=== PATIENT | male | born 1945 | race Caucasian/White ===

== ENCOUNTER 2025-04-26 09:54 | Inpatient (IN) ==
[2025-04-26 10:30] LABS: Hematocrit (blood only) 37.7 % (42.0-52.0); Hemoglobin 13.1 g/dl (14.0-18.0); Mean Corpuscular Hemoglobin 37.3 pg (25.0-34.0); Mean Corpuscular Volume 107.4 fL (80.0-100.0); Platelet Count 314 K/uL (130-400); RDW Standard Deviation 62.4 fL (36.4-46.3); Red Blood Count 3.51 M/uL (4.70-6.10); White Blood Count 26.92 K/ul (4.8-10.8)
[2025-04-26] MEDS: PROCHLORPERAZINE 2 ML IV ONE (10:42)
[2025-04-26] MEDS: PLASMA-LYTE A 1,000 ML IV ONE ×2 (10:43→12:04)
--- NOTE | 2025-04-26 10:52 | CT Scan Report ---
CT SCAN OF THE BRAIN WITHOUT IV CONTRAST CLINICAL HISTORY: Severe nausea vomiting. History of brain metastasis. COMPARISON STUDY: MRI the brain dated 04/02/2025 TECHNIQUE: Unenhanced axial CT scan of the brain was performed from the vertex to the skull base. A dose lowering technique was utilized adhering to the principles of ALARA. CT DOSE: 781.9 mGy.cm FINDINGS: There is right cerebellar edema. There is underlying 2 cm mass. There is persistent mild mass effect on the fourth ventricle. There is minimal left cerebellar hemispheric edema consistent with the patie nt's known prior left cerebellar metastatic deposit. 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 The ventricular system however remains unchanged in size. There are no areas of acute hemorrhage. There is no midline shift. There is scattered additiona l white matter hypodensities likely on a small vessel basis. Calvarium: Unremarkable. Sinuses and mastoids: The visualized paranasal sinuses are clear. The mastoid air cells are well pneu matized. Orbits: The bony orbits are grossly intact. IMPRESSION: 1. Persistent cerebellar masses with associated edema consistent with the patient's known metastasis. 2. Persistent 1 cm right parafalcine nodule likely representing an incidental meningioma 3. Minimal mass effect on the fourth ventricle, but no current evidence of significant hydrocephalus. 4. No evidence of acute hemorrhage ACT 112: Negative or not required by law. Electronically signed by: Antonio Lyons M.D. 04/26/2025 10:50 AM
[2025-04-26 10:57] LABS: Alanine Aminotransferase 68 U/L (7-52); Albumin Globulin Ratio 1.8 (0.9-2); Alkaline Phosphatase 72 U/L (34-104); Anion Gap 8 (3-11); Bilirubin,Total 0.9 mg/dl (0.2-1.0); Blood Urea Nitrogen 27 mg/dl (6-23); Calcium 9.9 mg/dl (8.6-10.3); Carbon Dioxide 25 mmol/L (21-32); Chloride 102 mmol/L (98-107); Creatinine Clr Calc Pharmacy 58.8 ml/min; Globulin 2.2 gm/dl (2.5-4.0); Glucose 115 mg/dl (70-99(Fasting)); Lipase 18 U/L (11-82); Magnesium 2.0 mg/dl (1.7-2.4); Potassium 4.0 mmol/L (3.5-5.1); Sodium 135 mmol/L (136-145); Total Protein 6.1 gm/dl (6.0-8.3)
[2025-04-26 11:00] LABS: Hypersegmented Neutrophils 1+; Immature Granulocytes # (auto) 1.44 K/uL (0.01-0.20); Immature Granulocytes % (auto) 5.3 %; Macrocytosis Present; Poikilocytosis Present
--- NOTE | 2025-04-26 11:25 | Emergency Department Note ---
Impression & Plan Cerebellar metastasis, Worsening headaches, Vertigo, Acute hyponatremia, Acidosis, lactic ED Provider Note NAME: JUAN SAWYER AGE: 79 SEX: M : 1945 ARRIVES VIA: Ambulance INFORMANT: Patient, EMS, family ED PROVIDER(S): Simon Salmeron DO CHIEF COMPLAINT: HPI: This is a 79-year-old male with the PMHx of recently diagnosed metastatic lung cancer, colorectal cancer, COPD, and BPH presenting to [facility] for further evaluation of severe nausea and vomiting. Patient is accompanied by EMS who provide additional history. EMS reported patient was lightheaded with a severe headache as well as nausea and vomiting. Was given droperidol en route with some improvement. Patient reports that this occurred suddenly this morning. States when he woke up he had feelings of lightheadedness and the room spinning. He also reports of severe headache. Patient reports he had severe nausea and vomiting. He has minimal abdominal tenderness. Patient states that he did not feel this way earlier in the week. He has significant weakness and malaise. he has had chills but no documented fevers. No cough or congestion. Denies chest pain or palpitations. No shortness of breath. No urinary complaints. No recent changes in bowel movements. Patient denies recent changes in medications or OTC supplements. Patient offers no other complaints, today. ADDITIONAL HISTORY OBTAINED: Per HPI Chronic Medical/Social Conditions Affecting Care: Per HPI PAST MEDICAL HISTORY: See Below PAST SURGICAL HISTORY: See Below FAMILY HISTORY: See Below SOCIAL HISTORY: See Below HOME MEDICATIONS: See Below ALLERGIES: See Below VITALS: See Below PHYSICAL EXAMINATION: GENERAL: Sitting up in bed, alert, well appearing, well nourished, no distress, non-toxic EYE EXAM: normal conjunctiva. PERRL and EOM's grossly intact. No nystagmus OROPHARYNX: no exudate, no erythema, lips, buccal mucosa, and tongue normal and mucous membranes are moist NECK: supple, no nuchal rigidity, no adenopathy, non-tender LUNGS: Clear to auscultation. Normal chest wall mechanics HEART: no murmurs, tachycardic rate, regular rhythm ABDOMEN: abdomen soft, minimal generalized TTP, no masses, no rebound or guarding. BACK: Back is symmetrical on inspection and there is no deformity, no midline tenderness, no CVA tenderness. SKIN: no rashes and no bruising UPPER EXTREMITIES: upper extremities are grossly normal. LOWER EXTREMITIES: No pitting edema. NEURO EXAM: Normal sensorium, GCS 15, normal speech, no gross weakness of arms, no gross weakness of legs. Sensation intact. MEDICAL DECISION MAKING: Differential diagnoses includes but not limited to metastatic cancer with brain metastases, cerebral edema, complex migraine, tension type headache, peripheral vertigo's, central vertigo, electrolyte derangements, dehydration, viral URI, pneumonia, bacteremia, complicated UTI In summary, this is a 79 year old male who presented with nausea and vomiting. Differential as above. Nursing notes and pertinent past medical records reviewed. Vital signs reviewed and the patient is . Tachycardic but otherwise afebrile and hemodynamically stable. Patient's blood pressure is on the lower end of normal. Given the patient's complex history and metastatic cancer, I do believe he is at risk for infectious illnesses. Would consider sepsis at this point based on vital signs. He is both tachycardic and tachypneic. Will initiate a septic workup. His nausea and vomiting is in the setting of a headache and vertiginous symptoms. He does have known brain metastases to the cerebellum which could likely explain his presentation. Cerebral edema would be a consideration as well. Will repeat the patient's CT head based on this. Patient may need an MRI as an inpatient. He is currently neurovascularly intact. I do not have concerns for large vessel occlusion. While he could have a posterior circulation stroke, I do believe it is more likely explained by his metastatic cancer and he would not be a candidate for therapies at this time including thrombectomy or TNK. Do not feel that further stroke workup is necessary. Will provide antiemetics as well as IV fluid resuscitation. Diagnostics interpreted by me include EKG and cardiac monitoring as listed below: -Cardiac Monitoring: An order was placed for continuous cardiac monitoring. The monitor shows a rate of 100-130s with regular rhythm. -ECG: EKG independently terming December tachycardia rate of 135 beats were not present. No significant ST segment changes to suggest STEMI. QTc is 450ms. Patient completed laboratory studies and imaging. Labs independently interpreted by me reveal a leukocytosis. Lactic acidosis. Mild elevation of ALT. Patient does have mild anemia that is stable. Given leukocytosis as well as lactic acidosis and tachycardia, patient meets SIRS criteria. Will collect further imaging with CT abdomen/pelvis. Will place the patient on broad- spectrum antibiotics. Plan for sepsis evaluation. Will give an additional liter of Plasma-Lyte. Urinalysis independently interpreted by me shows leukocyte esterase and pyuria but no significant bacteria. Do not think this is an source but abnormal for male patient. Would consider prostatitis if no other source identified. Viral swab added. Plan for CT abdomen/pelvis for further evaluation. I updated the family at 1140. 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 Did discuss with them that the patient will need to stay in the hospital secondary to sepsis and severe symptoms. CT head was independently reviewed by me and revealed no changes from prior. Do not feel that there has been an acute change causing his nausea and vomiting but very well could be related to his metastatic disease in the cerebellum and cerebral edema. Leukocytosis could be related to recent steroid use. CT abdomen/pelvis did not reveal source of sepsis as independently interpreted by me. I see no free air. There is no significant evidence of cholecystitis or bowel obstruction. Ultimately, the decision was made to admit the patient for SIRS response with concerns for vertiginous symptoms and atypical headaches in the setting of metastatic cancer and cerebellar metastases. I discussed the case with the hospitalist service via telephone/Tiger[employer] and they are agreeable to admit the patient to their services. Based on the above, including the patient's age, coexisting illnesses, labs, imaging, and exam findings the decision to treat as an inpatient. I discussed the patient with the hospitalist team who recommended admission to their services. They received the medications, treatments, interventions indicated above and their condition remained guarded. I discussed my findings with the patient and their family and they understand and agree with the treatment plan. All patient / family questions were answered to their satisfaction. Consults/Care Managements Discussions: Per [facility] ER treatment provided: See above Procedures:none Critical Care: None The chart was completed utilizing [employer] Speech voice recognition software. Grammatical errors, random word insertions, pronoun errors, and incomplete sentences are an occasional consequence of this system due to software limitations, ambient noise, and hardware issues. Any formal questions or concerns about the content, text, or information contained within the body of this dictation should be directly addressed to the physician for clarification. 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, bilateral (Acute) Ataxia (Acute) Primary adenocarcinoma of upper lobe of left lung (Acute) Non-small cell lung cancer metastatic to brain (Acute) Cerebellar metastasis (Acute) Nontraumatic cerebral edema (Acute) Multiple pulmonary nodules COPD with emphysema Lung mass 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, organic (Chronic) Medical History (Updated 04/27/25 @ 07:49 by Simon Salmeron DO) Cigarette smoker 60 pack yr hx Unintentional weight loss 11lb wt loss in past 3 months per 06/01/25 pulm note Hyperlipidemia Arthritis Vascular problem PVD: poor artery vascular flow from waste down from radiation secondary to colon cancer>reason for plavix; follows with vascular History of colon cancer surgery/radiation/chemo 28 years ago Surgical History Family history of reaction to anesthesia daughter>"difficult sedating" History of colonoscopy History of colon resection / colon cancer History of tooth extraction H/O vascular surgery iliac artery stenting 2013; iliac artery stenting 10/2024 [facility] Family History (Updated 04/07/25 @ 13:40 by Eileen Santana, RN) Brother Prostate cancer Father Cancer Prostate Aunt Cancer Colon Social History (Updated 04/07/25 @ 13:44 by Eileen Santana, RN) Smoking Status: Never smoker Tobacco Type: Cigarettes Age Started Using Tobacco: 16; Age Quit Using Tobacco: 79; packs per day: 1; Second Hand Exposure: No; Do You Dip or Chew Tobacco: No; Hx Alcohol Use: No Hx Substance Use: No Preferred Language: Indonesian Communication Ability: Effective 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: No Beliefs That Will Affect Care: None marital status: Current Living Situation: Spouse Feels Safe at Home: Yes Assistive Devices: None Allergies Allergies Allergy/AdvReac Type Severity Reaction Status Date / Time naproxen AdvReac Intermediate Headache Verified 04/14/25 11:35 Home Meds Home Medications Medication Instructions Recorded Confirmed clopidogrel 75 mg tablet 75 mg PO DAILY 10/12/19 04/26/25 aspirin 81 mg tablet 81 mg PO Q2D 03/24/25 04/26/25 acetaminophen 300 mg-codeine 30 mg 1 tab PO DAILY PRN Pain 04/06/25 04/26/25 tablet acetaminophen 500 mg capsule 1,000 mg PO QID PRN Pain 04/06/25 04/26/25 cyanocobalamin (vitamin B-12) 1,000 mcg PO DAILY 04/06/25 04/26/25 1,000 mcg tablet cholecalciferol (vitamin D3) 25 5,000 unit PO DAILY 04/07/25 04/26/25 mcg (1,000 unit) tablet oxycodone 5 mg tablet 5 mg PO .Q4-6H PRN Pain 04/26/25 04/26/25 Previous Rx's Medication Instructions Recorded dexamethasone 4 mg tablet 4 mg PO DAILY #30 tabs 04/05/25 Results & Data (ED) Vital Signs Vital Signs - 24 hr 04/26/25 09:58 04/26/25 10:04 04/26/25 11:00 Temperature 36.6 C Temperature Source Oral Pulse Rate 127 H 125 H Pulse Rate [Apical] 122 H Pulse Rhythm [Apical] Pulse Strength [Apical] Respiratory Rate 22 24 Respiratory Effort / Characteristics Non-Labored Spontaneous Respiratory Depth Normal Respiratory Pattern Regular Blood Pressure 187/94 H Blood Pressure [Right Arm] 188/106 H Blood Pressure Mean 125 Blood Pressure Mean [Right Arm] 133 Blood Pressure Position Sitting Blood Pressure Position [Right Arm] Pulse Oximetry 99 98 Oxygen Delivery Method Room Air Sepsis Recent Fever Within 48 Hours No Sepsis New/Unexplained Change in Mental Status No Sepsis Action Taken by Nursing Physician Notified 04/26/25 11:00 04/26/25 12:46 Temperature 36.4 C L Temperature Source Oral Pulse Rate Pulse Rate [Apical] 131 H Pulse Rhythm [Apical] Regular Pulse Strength [Apical] Normal Respiratory Rate 29 H Respiratory Effort / Characteristics Spontaneous Respiratory Depth Normal Respiratory Pattern Regular Blood Pressure Blood Pressure [Right Arm] 167/100 H Blood Pressure Mean Blood Pressure Mean [Right Arm] 122 Blood Pressure Position Blood Pressure Position [Right Arm] Lying Pulse Oximetry 99 Oxygen Delivery Method Room Air Room Air Sepsis Recent Fever Within 48 Hours Sepsis New/Unexplained Change in Mental Status Sepsis Action Taken by Nursing Laboratory Data 04/26/25 10:10 04/27/25 03:31 Lab Results 04/26/25 04/26/25 04/26/25 Range/Units 10:10 10:10 10:49 WBC 26.92 H (4.8-10.8) K/ul RBC 3.51 L (4.70-6.10) M/uL Hgb 13.1 L (14.0-18.0) g/dl Hct 37.7 L (42.0-52.0) % MCV 107.4 H (80.0-100.0) fL MCH 37.3 H (25.0-34.0) pg MCHC 34.7 (32.0-36.0) g/dL RDW Std Deviation 62.4 H (36.4-46.3) fL RDW Coeff of Annamarie 15.9 H (11.5-14.5) % Plt Count 314 (130-400) K/uL MPV 10.2 (9.4-12.4) fL Immature Gran % (Auto) 5.3 % Neut % (Auto) 82.1 % Lymph % (Auto) 7.2 % [place] % (Auto) 4.7 % Eos % (Auto) 0.6 % Baso % (Auto) 0.1 % Neut # (Auto) 22.08 H (1.40-6.50) K/uL Lymph # (Auto) 1.93 (1.20-3.40) K/uL [place] # (Auto) 1.27 H (0.11-0.59) K/uL Eos # (Auto) 0.16 (0.00-0.50) K/uL Baso # (Auto) 0.04 (0.00-0.20) K/uL Immature Gran # (Auto) 1.44 H (0.01-0.20) K/uL Absolute Nucleated RBC 0.09 (0.00-0.12) K/uL Nucleated RBC % (auto) 0.3 % Hypersegmented Neuts 1+ Poikilocytosis Present Macrocytosis Present Sodium 135 L (136-145) mmol/L Potassium 4.0 (3.5-5.1) mmol/L Chloride 102 (98-107) mmol/L Carbon Dioxide 25 (21-32) mmol/L Anion Gap 8 (3-11) BUN 27 H (6-23) mg/dl Creatinine 0.95 (0.6-1.4) mg/dl Est Cr Clr Drug Dosing 58.8 ml/min eGFR 80.41 BUN/Creatinine Ratio 28.4 H (10-20) Glucose 115 H (70-99(Fasting)) mg/dl Lactate (0.4-2.0) mmol/L Calcium 9.9 (8.6-10.3) mg/dl Phosphorus 2.6 (2.5-4.9) mg/dl Magnesium 2.0 (1.7-2.4) mg/dl Total Bilirubin 0.9 (0.2-1.0) mg/dl AST 24 (13-39) U/L ALT 68 H (7-52) U/L Alkaline Phosphatase 72 (34-104) U/L C-Reactive Protein < 0.50 Cancelled (0-0.5) mg/dl Total Protein 6.1 (6.0-8.3) gm/dl Albumin 3.9 (3.4-5.0) gm/dl Globulin 2.2 L (2.5-4.0) gm/dl Albumin/Globulin Ratio 1.8 (0.9-2) Lipase 18 (11-82) U/L Procalcitonin 0.32 (0-0.5) ng/ml Urine Color Yellow Urine Appearance Clear (Clear) Urine pH 5.0 (4.5-7.5) Ur Specific Julian 1.012 (1.000-1.030) Urine Protein Negative (Negative) Urine Glucose (UA) Negative (Negative) Urine Ketones Negative (Negative) Urine Blood Trace H (Negative) Urine Nitrite Negative (Negative) Urine Bilirubin Negative (Negative) Urine Urobilinogen Negative (Negative) Ur Leukocyte Esterase 1+ H (Negative) Urine WBC (Auto) 6-10 H (0-5) /hpf Urine RBC (Auto) 0-2 (0-2) /hpf U Hyaline Cast (Auto) 0-2 (0-2) /lpf U Epithel Cells (Auto) 0-2 (0-2) /hpf Urine Bacteria (Auto) None Seen (None Seen) Urine Comment Adenovirus (PCR) (NotDetected) B. pertussis DNA (PCR) (NotDetected) B.parapertussis DNA PCR (NotDetected) C. pneumoniae DNA (PCR) (NotDetected) Coronavirus OC43 (PCR) (NotDetected) Coronavirus HKU1 (PCR) (NotDetected) Coronavirus 229E (PCR) (NotDetected) SARS-CoV-2 (PCR) (NotDetected) Coronavirus NL63 (PCR) (NotDetected) Human Metapneumovir PCR (NotDetected) Influenza Type A (PCR) (NotDetected) Influenza Type B (PCR) (NotDetected) M. pneumoniae (PCR) (NotDetected) Parainfluenza 1 (PCR) (NotDetected) Parainfluenza 2 (PCR) (NotDetected) Parainfluenza 3 (PCR) (NotDetected) Parainfluenza 4 (PCR) (NotDetected) RSV (PCR) (NotDetected) Entero/Rhino (PCR) (NotDetected) 04/26/25 04/26/25 Range/Units 10:58 11:30 WBC (4.8-10.8) K/ul RBC (4.70-6.10) M/uL Hgb (14.0-18.0) g/dl Hct (42.0-52.0) % MCV (80.0-100.0) fL MCH (25.0-34.0) pg MCHC (32.0-36.0) g/dL RDW Std Deviation (36.4-46.3) fL RDW Coeff of Annamarie (11.5-14.5) % Plt Count (130-400) K/uL MPV (9.4-12.4) fL Immature Gran % (Auto) % Neut % (Auto) % Lymph % (Auto) % [place] % (Auto) % Eos % (Auto) % Baso % (Auto) % Neut # (Auto) (1.40-6.50) K/uL Lymph # (Auto) (1.20-3.40) K/uL [place] # (Auto) (0.11-0.59) K/uL Eos # (Auto) (0.00-0.50) K/uL Baso # (Auto) (0.00-0.20) K/uL Immature Gran # (Auto) (0.01-0.20) K/uL Absolute Nucleated RBC (0.00-0.12) K/uL Nucleated RBC % (auto) % Hypersegmented Neuts Poikilocytosis Macrocytosis Sodium (136-145) mmol/L Potassium (3.5-5.1) mmol/L Chloride (98-107) mmol/L Carbon Dioxide (21-32) mmol/L Anion Gap (3-11) BUN (6-23) mg/dl Creatinine (0.6-1.4) mg/dl Est Cr Clr Drug Dosing ml/min eGFR BUN/Creatinine Ratio (10-20) Glucose (70-99(Fasting)) mg/dl Lactate 3.2 H* (0.4-2.0) mmol/L Calcium (8.6-10.3) mg/dl Phosphorus (2.5-4.9) mg/dl Magnesium (1.7-2.4) mg/dl Total Bilirubin (0.2-1.0) mg/dl AST (13-39) U/L ALT (7-52) U/L Alkaline Phosphatase (34-104) U/L C-Reactive Protein (0-0.5) mg/dl Total Protein (6.0-8.3) gm/dl Albumin (3.4-5.0) gm/dl Globulin (2.5-4.0) gm/dl Albumin/Globulin Ratio (0.9-2) Lipase (11-82) U/L Procalcitonin (0-0.5) ng/ml Urine Color Urine Appearance (Clear) Urine pH (4.5-7.5) Ur Specific Julian (1.000-1.030) Urine Protein (Negative) Urine Glucose (UA) (Negative) Urine Ketones (Negative) Urine Blood (Negative) Urine Nitrite (Negative) Urine Bilirubin (Negative) Urine Urobilinogen (Negative) Ur Leukocyte Esterase (Negative) Urine WBC (Auto) (0-5) /hpf Urine RBC (Auto) (0-2) /hpf U Hyaline Cast (Auto) (0-2) /lpf U Epithel Cells (Auto) (0-2) /hpf Urine Bacteria (Auto) (None Seen) Urine Comment Adenovirus (PCR) Not Detected (NotDetected) B. pertussis DNA (PCR) Not Detected (NotDetected) B.parapertussis DNA PCR Not Detected (NotDetected) C. pneumoniae DNA (PCR) Not Detected (NotDetected) Coronavirus OC43 (PCR) Not Detected (NotDetected) Coronavirus HKU1 (PCR) Not Detected (NotDetected) Coronavirus 229E (PCR) Not Detected (NotDetected) SARS-CoV-2 (PCR) Not Detected (NotDetected) Coronavirus NL63 (PCR) Not Detected (NotDetected) Human Metapneumovir PCR Not Detected (NotDetected) Influenza Type A (PCR) Not Detected (NotDetected) Influenza Type B (PCR) Not Detected (NotDetected) M. pneumoniae (PCR) Not Detected (NotDetected) Parainfluenza 1 (PCR) Not Detected (NotDetected) Parainfluenza 2 (PCR) Not Detected (NotDetected) Parainfluenza 3 (PCR) Not Detected (NotDetected) Parainfluenza 4 (PCR) Not Detected (NotDetected) RSV (PCR) Not Detected (NotDetected) Entero/Rhino (PCR) Not Detected (NotDetected) Administered Medications Dexamethasone 4 mg/ Syringe 1 mls @ 1 mls/min IV Q6 MARGARITA Stop: 05/26/25 17:59 Last Admin: 04/27/25 05:45 Dose: 1 mls/min Documented By: Admin: 04/27/25 00:38 Dose: 1 mls/min Documented By: Admin: 04/26/25 19:31 Dose: 1 mls/min Documented By: YESIKA Acetaminophen (Ofirmev) 1,000 mg in 100 mls @ 400 mls/hr IV Q8H PRN PRN Reason: Headache or Pain Stop: 04/29/25 15:13 Last Admin: 04/27/25 06:12 Dose: 400 mls/hr Documented By: Infusion: 04/26/25 15:57 Dose: Infused Documented By: Admin: 04/26/25 15:32 Dose: 400 mls/hr Documented By: SANYA Levetiracetam (Levetiracetam 500 Mg/5 Ml Vial) 1,000 mg IV Q12H MARGARITA Stop: 05/27/25 06:29 Last Admin: 04/27/25 05:45 Dose: 1,000 mg Documented By: YESIKA Discontinued Medications Dexamethasone (Dexamethasone Sod Inj 4 Mg/Ml Vial) 10 mg IV NOW STA Stop: 04/26/25 13:26 Last Admin: 04/26/25 13:41 Dose: 10 mg Documented By: dominik Enoxaparin Sodium (Enoxaparin Inj 40 Mg/0.4 Ml Syr) 40 mg SQ NOW STA Stop: 04/26/25 12:50 Last Admin: 04/26/25 19:42 Dose: Not Given Documented By: YESIKA Parenteral Electrolytes (Plasma-Lyte A Ph 7.4) 1,000 mls @ 999 mls/hr IV .Q1H1M ONE Stop: 04/26/25 11:08 Last Infusion: 04/26/25 12:04 Dose: Infused Documented By: dominik Admin: 04/26/25 10:43 Dose: 999 mls/hr Documented By: SAMUEL Prochlorperazine (Compazine) 2 mls @ 1 mls/min IV ONE ONE Stop: 04/26/25 10:35 Last Admin: 04/26/25 10:42 Dose: 1 mls/min Documented By: SAMUEL Cefepime HCl (Maxipime 2000mg) 2,000 mg in 20 mls @ 5 mls/min IV NOW STA; Protocol Stop: 04/26/25 11:28 Last Admin: 04/26/25 12:49 Dose: 5 mls/min Documented By: dominik Parenteral Electrolytes (Plasma-Lyte A Ph 7.4) 1,000 mls @ 999 mls/hr IV .Q1H1M ONE Stop: 04/26/25 12:53 Last Infusion: 04/26/25 13:12 Dose: Infused Documented By: Admin: 04/26/25 12:04 Dose: 999 mls/hr Documented By: dominik Sodium Chloride (Nss) 1,000 mls @ 999 mls/hr IV .Q1H1M MARGARITA Stop: 04/26/25 15:21 Last Admin: 04/26/25 15:20 Dose: Not Given Documented By: SANYA Sodium Chloride (Hypertonic Saline 3%) 150 mls @ 450 mls/hr IV .Q20M ONE; Protocol Stop: 04/26/25 15:31 Last Infusion: 04/26/25 19:43 Dose: Infused Documented By: YESIKA Co-signed By: LISA Admin: 04/26/25 15:27 Dose: 450 mls/hr Documented By: SANYA Co-signed By: ROBB Ioversol (Optiray 320 100ml) 92 ml IV ONCE ONE Stop: 04/26/25 11:49 Last Admin: 04/26/25 11:48 Dose: 92 ml Documented By: HEBERT Levetiracetam (Levetiracetam 500 Mg/5 Ml Vial) 2,000 mg IV NOW STA Stop: 04/26/25 18:28 Last Admin: 04/26/25 19:31 Dose: 2,000 mg Documented By: YESIKA Imaging Data Radiologist's Impression: Head CT 04/26/25 10:08 CT SCAN OF THE BRAIN WITHOUT IV CONTRAST CLINICAL HISTORY: Severe nausea vomiting. History of brain metastasis. COMPARISON STUDY: MRI the brain dated 04/02/2025 TECHNIQUE: Unenhanced axial CT scan of the brain was performed from the vertex to the skull base. A dose lowering technique was utilized adhering to the principles of ALARA. CT DOSE: 781.9 mGy.cm FINDINGS: There is right cerebellar edema. There is underlying 2 cm mass. There is persistent mild mass effect on the fourth ventricle. There is minimal left cerebellar hemispheric edema consistent with the patient's known prior left cerebellar metastatic deposit. There is also a 1 cm hyperdense right parafalcine nodule corresponding to the enhancing lesion described in the prior MRI which was felt to be extra-axial and likely market survey representative of a meningioma. The ventricular system however remains unchanged in size. There are no areas of acute hemorrhage. There is no midline shift. There is scattered additional white matter hypodensities likely on a small vessel basis. Calvarium: Unremarkable. Sinuses and mastoids: The visualized paranasal sinuses are clear. The mastoid air cells are well pneumatized. Orbits: The bony orbits are grossly intact. IMPRESSION: 1. Persistent cerebellar masses with associated edema consistent with the patient's known metastasis. 2. Persistent 1 cm right parafalcine nodule likely representing an incidental meningioma 3. Minimal mass effect on the fourth ventricle, but no current evidence of significant hydrocephalus. 4. No evidence of acute hemorrhage ACT 112: Negative or not required by law. Electronically signed by: Antonio Lyons M.D. 04/26/2025 10:50 AM Abdomen/Pelvis CT 04/26/25 11:25 CT SCAN OF THE ABDOMEN AND PELVIS WITH IV CONTRAST CLINICAL HISTORY: Sepsis. Nausea and vomiting. Lung mass. COMPARISON STUDY: PET/CT dated 04/22/2025. TECHNIQUE: Following the IV administration of 92 cc of Optiray 320, CT scan of the abdomen and pelvis is performed from the lung bases to the proximal femora. Images are reviewed in the axial, sagittal, and coronal planes. IV contrast was administered without complication. A dose lowering technique was utilized adhering to the principles of ALARA. CT DOSE: 607.67 mGy.cm FINDINGS: Lung bases: The heart is top normal in size and without pericardial effusion. The coronary arteries are densely calcified. Emphysematous change is noted. There are small left and trace right pleural effusions with bibasilar scarring/atelectasis. No airspace consolidation is seen typical for pneumonia. There are at least 8 small pulmonary nodules of the left lung base an at least 7 nodules at the right lung base which measure up to 4 mm. Liver: The contrast-enhanced liver is normal in size, contour, and attenuation. There is no intrahepatic biliary ductal dilatation. The hepatic veins and portal veins are patent. Gallbladder: Unremarkable. Spleen: Normal in size and attenuation. Pancreas: Small calcifications are seen within the pancreatic head. A 7 mm cystic focus in the pancreatic neck on image #98 is typical for a sidebranch IPMN. Adrenal glands: A 3.5 cm right adrenal metastasis is unchanged. There is thickening of the left adrenal gland with no lesion clearly identified. Kidneys: The contrast enhanced kidneys are normal in size and without hydronephrosis. The kidneys enhance symmetrically. Small renal cysts measure up to 14 mm. A 5 mm nonobstructing calculus is seen on the right. Abdominal vasculature: There is advanced atherosclerotic calcification and ectasia of the abdominal aorta. Advanced atherosclerotic plaque is seen throughout the iliac vessels. A left iliac artery stent is in place. This is significantly narrowed distally and likely remains patent with trace flow. This is difficult to assess. Bowel: There is postsurgical change from lower anterior resection. No bowel obstruction is seen. Moderate fecal retention is noted throughout the colon. The appendix is well-visualized and normal. Peritoneum: No intraperitoneal free air is identified. There is trace pelvic ascites. Lymphadenopathy: None. Pelvic viscera: The prostate gland is enlarged and heterogeneous. The bladder is distended but otherwise normal as imaged. There are small bilateral fat- containing groin hernias. Surgical clips are seen in the perirectal soft tissues. Skeletal structures: The skeletal structures are osteopenic. There is moderate lumbosacral spondylosis. No lytic or blastic lesions are seen. A right L3 lesion suggested by PET is not appreciated on today's study. A small enchondroma is suggested in the left 10th rib. IMPRESSION: 1. No acute infectious or inflammatory findings are identified in the abdomen or pelvis. 2. A right adrenal metastasis is unchanged. 3. Small left and trace right pleural effusions. 4. There are numerous small bibasilar pulmonary nodules which measure up to 4 mm. These are pathologically indeterminate and metastatic lesions are not excluded. Attention at follow-up will be required. 5. Trace pelvic ascites. 6. Right-sided nephrolithiasis. 7. Bladder distention. 8. Additional findings as above. ACT 112: Negative or not required by law. Electronically signed by: Guillermo Castro M.D. 04/26/2025 12:19 PM Discharge Plan Visit Data Chief Complaint: Nausea Stated Complaint: WEAKNESS, DIZZY, NAUSEA, VOMITING ED Provider: Simon Salmeron Discharge Problem: Cerebellar metastasis, Worsening headaches, Vertigo, Acute hyponatremia, Acidosis, lactic Patient Disposition: Admitted As Inpatient Condition: Serious Discharge Instructions Interventions: ED Discharge Assessment Last Done: 04/26/25 14:59
[2025-04-26 11:26] LABS: Appearance Urine Clear (Clear); Bacteria Urine Automated None Seen (None Seen); Cast Urine Automated 0-2 /lpf (0-2); Epithelial Cell Urine Auto 0-2 /hpf (0-2); Glucose Urine UA Negative (Negative); RBC Urine Automated 0-2 /hpf (0-2)
[2025-04-26] MEDS: OPTIRAY 320 100ml IV ONE (11:48)
--- NOTE | 2025-04-26 12:20 | CT Scan Report ---
CT SCAN OF THE ABDOMEN AND PELVIS WITH IV CONTRAST CLINICAL HISTORY: Sepsis. Nausea and vomiting. Lung mass. COMPARISON STUDY: PET/CT dated 04/22/2025. TECHNIQUE: Following the IV administration of 92 cc of Optiray 320, CT scan of the abdomen and pelvi s is performed from the lung bases to the proximal femora. Images are reviewed in the axial, sagittal , and coronal planes. IV contrast was administered without complication. A dose lowering technique wa s utilized adhering to the principles of ALARA. CT DOSE: 607.67 mGy.cm FINDINGS: Lung bases: The heart is top normal in size and without pericardial effusion. The coronary arteries a re densely calcified. Emphysematous change is noted. There are small left and trace right pleural eff usions with bibasilar scarring/atelectasis. No airspace consolidation is seen typical for pneumonia. There are at least 8 small pulmonary nodules of the left lung base an at least 7 nodules at the right lung base which measure up to 4 mm. Liver: The contrast-enhanced liver is normal in size, contour, and attenuation. There is no intrahepa tic biliary ductal dilatation. The hepatic veins and portal veins are patent. Gallbladder: Unremarkable. Spleen: Normal in size and attenuation. Pancreas: Small calcifications are seen within the pancreatic head. A 7 mm cystic focus in the pancre atic neck on image #98 is typical for a sidebranch IPMN. Adrenal glands: A 3.5 cm right adrenal metastasis is unchanged. There is thickening of the left adren al gland with no lesion clearly identified. Kidneys: The contrast enhanced kidneys are normal in size and without hydronephrosis. The kidneys enh ance symmetrically. Small renal cysts measure up to 14 mm. A 5 mm nonobstructing calculus is seen on the right. Abdominal vasculature: There is advanced atherosclerotic calcification and ectasia of the abdominal a dick. Advanced atherosclerotic plaque is seen throughout the iliac vessels. A left iliac artery stent is in place. This is significantly narrowed distally and likely remains patent with trace flow. This is difficult to assess. Bowel: There is postsurgical change from lower anterior resection. No bowel obstruction is seen. Mode rate fecal retention is noted throughout the colon. The appendix is well-visualized and normal. Peritoneum: No intraperitoneal free air is identified. There is trace pelvic ascites. Lymphadenopathy: None. Pelvic viscera: The prostate gland is enlarged and heterogeneous. The bladder is distended but otherw ise normal as imaged. There are small bilateral fat-containing groin hernias. Surgical clips are seen in the perirectal soft tissues. Skeletal structures: The skeletal structures are osteopenic. There is moderate lumbosacral spondylosi s. No lytic or blastic lesions are seen. A right L3 lesion suggested by PET is not appreciated on toveronica best's study. A small enchondroma is suggested in the left 10th rib. IMPRESSION: 1. No acute infectious or inflammatory findings are identified in the abdomen or pelvis. 2. A right adrenal metastasis is unchanged. 3. Small left and trace right pleural effusions. 4. There are numerous small bibasilar pulmonary nodules which measure up to 4 mm. These are pathologi miky indeterminate and metastatic lesions are not excluded. Attention at follow-up will be required. 5. Trace pelvic ascites. 6. Right-sided nephrolithiasis. 7. Bladder distention. 8. Additional findings as above. ACT 112: Negative or not required by law. Electronically signed by: Guillermo Castro M.D. 04/26/2025 12:19 PM
[2025-04-26 12:30] LABS: Chlamydia pneumoniae PCR Not Detected (NotDetected); Coronavirus 229E PCR Not Detected (NotDetected); Coronavirus CoV-2 (COVID19)PCR Not Detected (NotDetected); Coronavirus HKU1 PCR Not Detected (NotDetected); Coronavirus NL63 PCR Not Detected (NotDetected); Coronavirus OC43PCR Not Detected (NotDetected); Human Metapneumovirus PCR Not Detected (NotDetected); Parainfluenza Virus 1 PCR Not Detected (NotDetected); Parainfluenza Virus 2 PCR Not Detected (NotDetected); Parainfluenza Virus 3 PCR Not Detected (NotDetected); Parainfluenza Virus 4 PCR Not Detected (NotDetected); Respiratory Syncytial VirusPCR Not Detected (NotDetected); Rhinovirus/Enterovirus PCR Not Detected (NotDetected)
[2025-04-26] MEDS: CEFEPIME 2000MG 2,000 MG/20 ML SYR IV STA (12:49)
[2025-04-26] MEDS: DEXAMETHASONE SOD INJ 4 MG/ML VIAL IV STA (13:41)
--- NOTE | 2025-04-26 14:02 | History & Physical Report ---
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 #Symptomatic Cerebral Edema // Stage IV Pulmonary Adenocarcinoma with metastatic disease to the cerebellum, bones, and adrenal gland Based on the patient's clinical exam, acute onset of symptoms, and imaging findings suspect they are acutely symptomatic of their cerebral edema in the s etting of the cerebellar metastases; the partial cranial nerve palsy and ataxia of the upper and lower extremities is concerning for threatening herniation; the patient's case was discussed with Dr. Ornelas, the airflight attendants supervisor on- call who agreed to evaluate the patient and recommended consultation with Dr. Crowe from radiation oncology Admit to ICU Administer dexamethasone 10 mg IV one-time stat Considered mannitol or hypertonic saline for further osmotic intervention, will with holding at this time pending assessment by intensive care Minimize fluid resuscitation in the setting of cerebral edema to avoid additional vasogenic edema Maintain head of bed approximately 30 degrees to offset intracranial pressure Intensive care and radiation oncology consulted #Leukocytosis // Lactic Acidosis Patient presented with and a leukocytosis of 26.92 increased from 12.93 obtained 03/31; furthermore the patient does have a elevated lactate of 3.2 but is without a anion gap; suspect that the leukocytosis is likely consequential of the prescribed dexamethasone in the outpatient setting as there is no evidence clinically nor objectively from the studies performed the emergency department of a current infection, additionally the lactate though quite elevated is potentially secondary to their metastatic malignancy and increased intracranial pressure causing poor perfusion. They were administered fluid resuscitation in the emergency department though this will not be continued due to the risk of precipitating further vasogenic edema. They were also administered cefepime, antibiotics cannot be continued at this time as there is no royal evidence of infection and there is no noted neutropenia at this time that would require empiric coverage Admission and Anticipated Discharge Date Admission Date: 04/26/2025 History of Present Illness Chief Complaint: Intractable dizziness Primary Care Provider: Freddy Otto MD Mr. Castro is an 79-year-old male whose active medical conditions include recently diagnosed stage IV non-small cell pulmonary adenocarcinoma with metastatic disease to multiple organ systems including the central nervous system in the cerebellum, panlobular emphysema in the setting of nicotine use disorder, benign prostatic hyperplasia with obstructive symptoms among other chronic medical conditions who presented to [facility] on 04/26 due to sudden onset dizziness and inability to ambulate on the same morning. The patient woke without symptomatology however shortly after getting out of bed and while dressing he experienced severe dizziness, nausea, and weakness which is persistent even when not moving and lying in the hospital [facility]. He has not experienced symptoms like this previously. He does endorse a persistent headache that is similar to the one he has had within the past few weeks surrounding his initial diagnosis of his metastatic pulmonary cancer. Allergies Allergy/AdvReac Type Severity Reaction Status Date / Time naproxen AdvReac Intermediate Headache Verified 04/14/25 11:35 Home Medications Medication Instructions Recorded Confirmed Type clopidogrel 75 mg tablet 75 mg PO DAILY 10/12/19 04/26/25 History aspirin 81 mg tablet 81 mg PO Q2D 03/24/25 04/26/25 History dexamethasone 4 mg tablet 4 mg PO DAILY #30 tabs 04/05/25 04/26/25 Rx acetaminophen 300 mg-codeine 30 mg 1 tab PO DAILY PRN Pain 04/06/25 04/26/25 H istory tablet acetaminophen 500 mg capsule 1,000 mg PO QID PRN Pain 04/06/25 04/26/25 History cyanocobalamin (vitamin B-12) 1,000 mcg PO DAILY 04/06/25 04/26/25 History 1,000 mcg tablet cholecalciferol (vitamin D3) 25 5,000 unit PO DAILY 04/07/25 04/26/25 History mcg (1,000 unit) tablet oxycodone 5 mg tablet 5 mg PO .Q4-6H PRN Pain 04/26/25 04/26/25 History Past Med/Surg History Problem List (Updated 04/26/25 @ 14:01 by Bandar Cabrera DO) Hemochromatosis (Chronic) follows with [facility] and receives monthly phlebotomy tx; heterozygous for H63D mutation Elevated lactic acid level 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 (Acute) Non-small cell lung cancer metastatic to bone (Acute) CN palsy, bilateral (Acute) Ataxia (Acute) Primary adenocarcinoma of upper lobe of left lung (Acute) Non-small cell lung cancer metastatic to brain (Acute) Cerebellar metastasis (Acute) Nontraumatic cerebral edema (Acute) Multiple pulmonary nodules COPD with emphysema Lung mass 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, organic (Chronic) Medical History (Updated 04/26/25 @ 14:01 by Bandar Cabrera DO) Cigarette smoker 60 pack yr hx Unintentional weight loss 11lb wt loss in past 3 months per 06/01/25 pulm note Hyperlipidemia Arthritis Vascular problem PVD: poor artery vascular flow from waste down from radiation secondary to colon cancer>reason for plavix; follows with vascular History of colon cancer surgery/radiation/chemo 28 years ago Surgical History Family history of reaction to anesthesia daughter>"difficult sedating" History of colonoscopy History of colon resection 10/25 colon cancer History of tooth extraction H/O vascular surgery iliac artery stenting 2013; iliac artery stenting 10/2024 [facility] Family History (Updated 04/07/25 @ 13:40 by Eileen Santana RN) Brother Prostate cancer Father Cancer Prostate Aunt Cancer Colon Social History (Updated 04/07/25 @ 13:44 by Eileen Santana RN) Smoking Status: Former smoker Tobacco Type: Cigarettes Age Started Using Tobacco: 16; Age Quit Using Tobacco: 79; packs per day: 1; Second Hand Exposure: Yes; Do You Dip or Chew Tobacco: No; Hx Alcohol Use: Yes Alcohol type: wine Alcohol type Comment: daily Alcohol Intake Frequency: Monthly or Less Hx Substance Use: No Preferred Language: [place] Drafter Directional Survey Required: No Beliefs That Will Affect Care: None marital status: Current Living Situation: Spouse Feels Safe at Home: Yes Assistive Devices: Glasses Review of Systems Review of Systems: Constitutional: denies fevers, chills, malaise, fatigue Cardiovascular: endorses rapid heart rate; denies angina, syncope Pulmonary: denies cough, dyspnea on exertion, pleuritic chest pain Gastrointestinal: endorses constipation, nausea; denies emesis, dysphagia, diarrhea Neurologic: endorses persistent dizziness, difficulty with coordination of upper and lower extremities; denies focal weakness, paresthesias or numbness, diplopia Integumentary: denies new or developing rashes or lesions Physical Exam Physical Exam: General: elderly male in moderate distress secondary to presenting symptoms Vital Signs: reviewed; persistently tachycardic, hypertensive, tachypneic saturating well on room air HEENT: normocephalic, atraumatic; pulls are equally reactive to light though slightly diminished responsiveness; horizontal extraocular motion is restricted laterally in both eyes without associated diplopia Pulmonary: symmetric chest wall excursion; CTAB Cardiovascular: tachycardic rate with regular rhythm, no murmurs rubs or gallops; S1 and S2 normal; bilateral radial and posterior tibial pulses 2+; trace bilateral lower extremity edema Gastrointestinal: soft, nondistended Genitourinary: Linn catheter in place collecting approximately 40 mL of pale yellow urine without sediment Neurologic: reduced but still present lateral extraocular motion otherwise cranial nerves II through XII are intact; ataxic in the bilateral upper extremities, unable to fully assess lower extremity secondary to weakness; generalized weakness without focal weakness of the upper or lower extremities; gross tactile sensation intact throughout Results & Data Results & Data Vital Signs (Past 12 Hours) Vital Signs Temp Pulse Pulse Resp BP BP Pulse Ox 04/26/25 12:46 36.4 C L 131 H 29 H 167/100 H 99 04/26/25 11:00 04/26/25 11:00 122 H 24 188/106 H 98 04/26/25 10:04 125 H 04/26/25 09:58 36.6 C 127 H 22 187/94 H 99 O2 Del Method 04/26/25 12:46 Room Air 04/26/25 11:00 Room Air 04/26/25 11:00 04/26/25 10:04 04/26/25 09:58 Room Air Code Status & VTE Plan VTE Prophylaxis Plan VTE Prophylaxis will be ordered: Yes PG Care Time/CCT Total # of Minutes Spent Total Time Spent with Patient: Total time spent is greater than 50% in coordination of care (as documented) at patient's floor/unit and/or counseling patient: Coding Level of Care Code 26917 INT INP/OBS CARE 3/75MIN History Comprehensive Exam Comprehensive Diagnoses Nontraumatic cerebral edema G93.6 Cerebellar metastasis C79.31 Non-small cell lung cancer metastatic to brain C34.90; C79.31 Primary adenocarcinoma of upper lobe of left lung C34.12 Ataxia R27.0 CN palsy, bilateral H49.23 Non-small cell lung cancer metastatic to bone C34.90; C79.51 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
--- NOTE | 2025-04-26 14:19 | Critical Care Consultation ---
Date of Consultation April 26, 2025 Assessment & Plan (1) Ataxia: (2) Adenocarcinoma of lung: (3) COPD with emphysema: (4) Multiple pulmonary nodules: (5) Cerebellar metastasis: (6) Cigarette smoker: (7) History of colon cancer: (8) Nontraumatic cerebral edema: (9) Primary adenocarcinoma of upper lobe of left lung: (10) Headache: (11) Hypertensive urgency: Plan Reason Critically Ill: 79-year-old male admitted to the hospital for severe headache and inability to ambulate since today morning Past medical history: Stage IV colorectal cancer s/p chemoradiation and surgery at the age of 52, PVD on Plavix, hemochromatosis Recently diagnosed stage IV adenocarcinoma of the lung Neuro - [facility]: -- Ataxia, dizziness Likely from cerebral edema Cardiac - --Hypertensive urgency Given the cerebral edema, will keep permissive hypertension Will treat only for SBP greater than 180 diastolic greater than 110 --Coronary artery disease On Plavix at home -- Sinus tachycardia EKG 04/26/2025, 10:26 AM: Sinus tachycardia, right bundle branch block, mild ST depressions in the lateral leads, no T wave changes Respiratory - --Saturating well on room air Chest x-ray from today does not show any significant change compared to before, left upper lobe mass persists -- Left upper lobe mass --> metastatic adenocarcinoma of the lung MRI of the brain positive for spread with cerebral edema Diagnosed 04/14/2025 PET/CT showed positivity in the adrenal glands CT chest 03/22/2025 personally reviewed: Left upper lobe mass 7.5 x 6 x 7 cm Centrilobular emphysema appreciated bilaterally Right upper lobe focal area of saccular bronchiectasis and scarring Multiple other tiny small pulmonary nodules Small left-sided pleural effusion Mediastinal lymphadenopathy -- COPD with emphysema Gold A Not on any inhalers right now --Current smoker > [id number] smoking history Currently smoking 5 cigarettes a day Importance of quitting explained the patient in depth GI - -- Mild elevation in AST Continue to trend -- Chronic diarrhea No change in consistency or frequency --History of stage IV colorectal cancer Diagnosed at the age of 52 s/p chemoradiation and surgery RENAL/LYTES - -- Monitor BUNs/creatinine Avoid nephrotoxic medication - --History of prostate nodules MRI negative, biopsy was never performed ENDO - -- ICU hyperglycemia protocol HEME - -- Macrocytic anemia Continue to monitor ID - -- Leukocytosis Patient is on dexamethasone at home He also seems to be dehydrated Chest x-ray is clean, UA is clean No clear source of infection --Prophylaxis VTE: Lovenox GI: None Lines: Peripheral Diet: N.p.o. Plan: Stat MRI of the brain to be ordered now Dexamethasone 4 mg every 6 hours. Will consider 3% hypertonic saline 100 mL bolus. Goal sodium would be 145-155. BMP every 4 Given the cerebral edema, will keep permissive hypertension Will treat only for SBP greater than 180 diastolic greater than 110 Case was discussed with the patient's as well as patient's daughter. They understand that the patient's prognosis is grave. Given the cerebral edema which is worsening, will give dexamethasone. They would not want any escalation of care which includes intubation or pressing on the chest. All questions inquiries of the patient as well as patient's daughter were answered in depth Case discussed with primary team, radiation oncology I have personally spent 62 minutes of critical care time in the direct management of this patient. This is a life/limb threatening event. This includes time spent evaluating patient, direct bedside care, chart review, placing orders, interpretation of diagnostic studies, discussion with consultants, patient, and family members, as well as other required patient management activities. This time is exclusive of all separately billable procedures, and teaching time and separate from and in addition to any other critical care service time. History of Present Illness History of Present Illness 79-year-old male admitted to the hospital for severe headache and inability to ambulate since today morning Past medical history: Stage IV colorectal cancer s/p chemoradiation and surgery at the age of 52, PVD on Plavix, hemochromatosis Recently diagnosed stage IV adenocarcinoma of the lung Patient's daughter as well as are in the room at the time of examination Patient was taking 4 mg of dexamethasone on a daily basis at home He was not in any respiratory distress. Systolic blood pressure was in the 180s, heart rate in the 120s. He stated since last night he has been having significant issues with his headache. Denies any blurry vision He still able to move all his extremities. Appetite was good up until today morning. Have chronic diarrhea which has not changed in frequency No dysuria. Denies any shortness of breath No chest pain Social history:> [id number] smoking history, currently smoking 5 cigarettes a day, social alcohol, denies any illicit drug use. 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 No birds or poultry nearby Allergies: Denies Asthma: No personal or family history of asthma Lung cancer: History of lung cancer in the family Allergies Allergy/AdvReac Type Severity Reaction Status Date / Time naproxen AdvReac Intermediate Headache Verified 04/14/25 11:35 Home Medications Medication Instructions Recorded Confirmed Type clopidogrel 75 mg tablet 75 mg PO DAILY 10/12/19 04/26/25 History aspirin 81 mg tablet 81 mg PO Q2D 03/24/25 04/26/25 History dexamethasone 4 mg tablet 4 mg PO DAILY #30 tabs 04/05/25 04/26/25 Rx acetaminophen 300 mg-codeine 30 mg 1 tab PO DAILY PRN Pain 04/06/25 04/26/25 History tablet acetaminophen 500 mg capsule 1,000 mg PO QID PRN Pain 04/06/25 04/26/25 History cyanocobalamin (vitamin B-12) 1,000 mcg PO DAILY 04/06/25 04/26/25 History 1,000 mcg tablet cholecalciferol (vitamin D3) 25 5,000 unit PO DAILY 04/07/25 04/26/25 History mcg (1,000 unit) tablet oxycodone 5 mg tablet 5 mg PO .Q4-6H PRN Pain 04/26/25 04/26/25 History Patient History Medical History (Updated 04/26/25 @ 15:26 by Ekta Ornelas MD, [facility]) Cigarette smoker 60 pack yr hx Unintentional weight loss 11lb wt loss in past 3 months per 06/01/25 pulm note Hyperlipidemia Arthritis Vascular problem PVD: poor artery vascular flow from waste down from radiation secondary to colon cancer>reason for plavix; follows with vascular History of colon cancer surgery/radiation/chemo 28 years ago Surgical History Family history of reaction to anesthesia daughter>"difficult sedating" History of colonoscopy History of colon resection 2/2 colon cancer History of tooth extraction H/O vascular surgery iliac artery stenting 2013; iliac artery stenting 10/2024 [facility] Family History (Updated 04/07/25 @ 13:40 by Eileen Santana RN) Brother Prostate cancer Father Cancer Prostate Aunt Cancer Colon Social History (Updated 04/07/25 @ 13:44 by Eileen Santana RN) Smoking Status: Former smoker Tobacco Type: Cigarettes Age Started Using Tobacco: 16; Age Quit Using Tobacco: 79; packs per day: 1; Second Hand Exposure: Yes; Do You Dip or Chew Tobacco: No; Hx Alcohol Use: Yes Alcohol type: wine Alcohol type Comment: daily Alcohol Intake Frequency: Monthly or Less Hx Substance Use: No Preferred Language: Portuguese Change Management Required: No Beliefs That Will Affect Care: None marital status: Current Living Situation: Spouse Feels Safe at Home: Yes Assistive Devices: Glasses Review of Systems 2 Review of Systems: All systems reviewed & are unremarkable except as noted in HPI & below Physical Exam 2 Physical Exam: Constitutional: No acute distress, frail-appearing HEENT: EOMI, PERRLA Respiratory system: Good air entry bilaterally, no wheeze, no rhonchi, no crackles CVS: S1-S2 positive, no murmurs or gallops Abdomen: Soft, nontender, nondistended, positive bowel sounds x4 Extremities: +2 pulses bilaterally radialis/ dorsalis pedis, no cyanosis, no edema Neuro: Somnolent but easily arousable, awake alert oriented times self and place Psych: Flat mood and affect G/U: Positive [place] Results & Data Results & Data Vital Signs (Past 12 Hours) Vital Signs Temp Pulse Pulse Resp BP BP Pulse Ox 04/26/25 14:04 130 H 04/26/25 13:30 138 H 18 186/95 H 98 04/26/25 13:12 04/26/25 12:46 36.4 C L 131 H 29 H 167/100 H 99 04/26/25 11:00 04/26/25 11:00 122 H 24 188/106 H 98 04/26/25 10:04 125 H 04/26/25 09:58 36.6 C 127 H 22 187/94 H 99 O2 Del Method 04/26/25 14:04 04/26/25 13:30 Room Air 04/26/25 13:12 Room Air 04/26/25 12:46 Room Air 04/26/25 11:00 Room Air 04/26/25 11:00 04/26/25 10:04 04/26/25 09:58 Room Air Laboratory Results 04/26/25 10:10 08/04/25 10:10 Coding Level of Care Code 75602 CRITICAL CARE 1ST 30-74M Diagnoses Ataxia R27.0 Adenocarcinoma of lung C34.90 COPD with emphysema J43.9 Multiple pulmonary nodules R91.8 Cerebellar metastasis C79.31 Cigarette smoker F17.210 History of colon cancer Z85.038 Nontraumatic cerebral edema G93.6 Primary adenocarcinoma of upper lobe of left lung C34.12 Headache R51.9 Hypertensive urgency I16.0
--- NOTE | 2025-04-26 14:28 | XRay Report ---
SINGLE VIEW CHEST CLINICAL HISTORY: Lung mass. FINDINGS: An AP, portable, upright chest radiograph is compared to study dated 04/14/2025. Correlation is made with PET/CT dated 04/22/2025. The cardiomediastinal silhouette is unremarkable noting atheros clerotic calcification of the thoracic aorta. Emphysema and chronic interstitial thickening is simila r to previous. A large left upper lobe lung mass is similar to previous. There is a small left pleura l effusion with left basilar atelectasis. No pneumothorax is seen. The skeletal structures are osteop enic. The bony thorax is grossly intact. IMPRESSION: 1. Findings of emphysema and a large left upper lobe lung mass are similar to previous. 2. There is no airspace consolidation typical for pneumonia. 3. Small left pleural effusion. ACT 112: Negative or not required by law. Electronically signed by: Guillermo Castro M.D. 04/26/2025 2:27 PM
--- NOTE | 2025-04-26 15:02 | Radiation OncologyConsultation ---
Date of Consultation April 26, 2025 Assessment & Plan (1) Non-small cell lung cancer metastatic to brain: Plan ATTENDING ADDENDUM Assessment: Mr. Fontenot is an 79 year old male with metastatic lung cancer to the brain. The patient was scheduled to start fractionated stereotactic radiosurgery today. The patient has been admitted to the hospital for worsening condition. Patient did have a CT head without contrast which did show stable disease however increased vasogenic edema. We have been asked to evaluate the patient regarding the role of treatment and management overall. Plan: 1. Hold radiation therapy today. 2. Recommend consideration of Decadron 4 mg every 6 hours. 3. MRI brain with contrast. Primary team ordered. 4. We will continue to follow the patient and document as needed. History of Present Illness Reason for Consultation: Brain metastasis Requesting Physician: Bandar Cabrera DO Attending Physician: Bandar Cabrera DO History of Present Illness 04/06/2019. 5.000. 04/06/2019. Prostate MRI. Performed due to elevated PSA. IMPRESSION: 1.4 x 1 x 0.6 cm subtle focus of restricted diffusion within the left anterior aspect of the prostate, likely within the peripheral zone at the level of the base. This is considered a PI-RADS 3 study: Intermediate (the presence of clinically significant cancer is equivocal). 04/05/2020. Prostate MRI. 1. Prostatomegaly with evidence of chronic bladder outlet obstruction. 2. The prostate gland is heterogeneous, with no discrete lesion identified. The lesion questioned on 04/06/2019 is less apparent on today's examination. 3. PI-RADS: 2. Clinically significant cancer is unlikely due to be present. 4. Trace free fluid is seen in the pelvis. 03/24/2021. PSA 6.32. 07/25/2022. PSA 7.460. 08/29/2022. PSA 5.71. 04/10/2023. PSA 7.170. 09/30/2023. PSA 8.280. 04/15/2024. Prostate MRI. 1. Lesion 1, right mid lateral PZ (PI-RADS 3 - Clinically significant cancer equivocal). No extraprostatic extension. 2. BPH findings. Seminal vesicles are normal. 3. There is no conrado disease and no bony metastases. 04/22/2024. Telehealth urology follow-up. Review of MRI. Options were discussed. Patient was not interested in pursuing a prostate biopsy. 03/16/2025. Chest x-ray. Masslike opacity at the left apex. CT of the chest recommended. 03/18/2025. Primary care follow-up (Nahomy Cruz PA-C/Dr. Freddy Otto). Chest CT ordered. Declined MRI for back pain. Previously declined low-dose CT for lung cancer screening. 03/22/2025. Chest CT. Large multilobulated left upper lobe mass with central necrosis, encasement of the left upper lobe bronchus and vessels, left main bronchus and left pulmonary artery with spiculated margins, associated left-sided pleural effusion and underlying collapse consolidation. Right upper lobe solid nodule with fibroatelectasis and fibrotic bronchiectatic changes. Emphysematous and fibrous/ fibril calcified sequela with fibro atelectatic changes in the bilateral lung parenchyma. Mediastinal, paratracheal, subcarinal, preaortic and bilateral axillary lymphadenopathy. Bilateral tiny renal cortical lymph nodes. 03/31/2025. Pulmonary consultation (Dr. Ornelas). Multiple pulmonary nodules. Brain MRI ordered. PET/CT ordered. Plan for bronchoscopy. 04/02/2025. Brain MRI. 1. There are 3 enhancing cerebellar lesions which measure up to 1.9 cm. These show surrounding edema and are highly suspicious for intracranial metastatic disease. 2. There is an additional 1.2 cm high right posterior parafalcine enhancing lesion without surrounding edema. This appears to be extra-axial and a meningioma is favored over an additional metastatic lesion. 3. No additional supratentorial lesions are identified. 4. There is no hemorrhage, midline shift, or evidence of acute ischemia. 04/07/2025. Radiation oncology consultation. Patient has minor headache. Decadron has improved headache. Plan to move forward with SBRT for brain metastasis. Bronchoscopy with biopsy pending. 04/12/2025. CT simulation for preparation of SBRT treatments to the brain. Planning for 5 fractions. 04/14/2025. Status post bronchoscopy with biopsies. Path report reveals non- small cell carcinoma consistent with adenocarcinoma. 04/22/2025. PET/CT. 1. Markedly FDG avid 2.5 x 7.2 x 5.3 cm left upper lobe mass consistent with primary lung malignancy. 2. Left supraclavicular, left hilar and mediastinal conrado metastases. Cerebellar, skeletal, right adrenal and small pulmonary metastases, as described above. 3. Small left pleural effusion. 04/21/2025. Medical oncology consultation (Dr. Gutierrez). Patient has stage IV disease will need molecular testing on tumor sample to assess for actionable mutations and PD-L1 status. If he does not have any tangible mutations then plan to treat with either single agent pembrolizumab or chemoimmunotherapy treatment. With carboplatin, pemetrexed and pembrolizumab depending on PD-L1 status. Patient has poor IV access will need a Mediport. Stereotactic radiation therapy to the brain is scheduled. 04/26/2025. Patient presented to the emergency room today. He has had ongoing headaches. He gives a pain level of 8 out of 10. He has associated nausea. No vomiting. He has also had ongoing back pain. Today gives a pain level of 10 out of 10. This is mainly in the lower back. He notes profound fatigue. He had weakness to the point that he was unable to ambulate. He was brought to the emergency room for evaluation. 04/26/2025. Head CT. 1. Persistent cerebellar masses with associated edema consistent with the patient's known metastasis. 2. Persistent 1 cm right parafalcine nodule likely representing an incidental meningioma 3. Minimal mass effect on the fourth ventricle, but no current evidence of significant hydrocephalus. 4. No evidence of acute hemorrhage 04/26/2025. CT of the abdomen pelvis. 1. No acute infectious or inflammatory findings are identified in the abdomen or pelvis. 2. A right adrenal metastasis is unchanged. 3. Small left and trace right pleural effusions. 4. There are numerous small bibasilar pulmonary nodules which measure up to 4 mm. These are pathologically indeterminate and metastatic lesions are not excluded. Attention at follow-up will be required. 5. Trace pelvic ascites. 6. Right-sided nephrolithiasis. 7. Bladder distention. 04/26/2025. Chest x-ray. 1. Findings of emphysema and a large left upper lobe lung mass are similar to previous. 2. There is no airspace consolidation typical for pneumonia. 3. Small left pleural effusion. 04/26/2025. Radiation oncology was notified that the patient was going to emergency room. He was due again his stereotactic treatment today. He had been previously started on dexamethasone and the medication will continue working his treatment. The hospitalist has spoken with Dr. Crowe. Recommendation for brain MRI. He will be on dexamethasone 4 mg 4 times daily. Nursing was advised as to his current pain level. Allergies Allergy/AdvReac Type Severity Reaction Status Date / Time naproxen AdvReac Intermediate Headache Verified 04/14/25 11:35 Home Medications Medication Instructions Recorded Confirmed Type clopidogrel 75 mg tablet 75 mg PO DAILY 10/12/19 04/26/25 History aspirin 81 mg tablet 81 mg PO Q2D 03/24/25 04/26/25 History dexamethasone 4 mg tablet 4 mg PO DAILY #30 tabs 04/05/25 04/26/25 Rx acetaminophen 300 mg-codeine 30 mg 1 tab PO DAILY PRN Pain 04/06/25 04/26/25 History tablet acetaminophen 500 mg capsule 1,000 mg PO QID PRN Pain 04/06/25 04/26/25 History cyanocobalamin (vitamin B-12) 1,000 mcg PO DAILY 04/06/25 04/26/25 History 1,000 mcg tablet cholecalciferol (vitamin D3) 25 5,000 unit PO DAILY 04/07/25 04/26/25 History mcg (1,000 unit) tablet oxycodone 5 mg tablet 5 mg PO .Q4-6H PRN Pain 04/26/25 04/26/25 History Patient History Medical History (Updated 04/26/25 @ 15:26 by Ekta Ornelas MD, [facility]) Cigarette smoker 60 pack yr hx Unintentional weight loss 11lb wt loss in past 3 months per 06/01/25 pulm note Hyperlipidemia Arthritis Vascular problem PVD: poor artery vascular flow from waste down from radiation secondary to colon cancer>reason for plavix; follows with vascular History of colon cancer surgery/radiation/chemo 28 years ago Surgical History Family history of reaction to anesthesia daughter>"difficult sedating" History of colonoscopy History of colon resection 2/2 colon cancer History of tooth extraction H/O vascular surgery iliac artery stenting 2013; iliac artery stenting 10/2024 [facility] Family History (Updated 04/07/25 @ 13:40 by Eileen Santana RN) Brother Prostate cancer Father Cancer Prostate Aunt Cancer Colon Social History (Updated 04/07/25 @ 13:44 by Eileen Santana RN) Smoking Status: Former smoker Tobacco Type: Cigarettes Age Started Using Tobacco: 16; Age Quit Using Tobacco: 79; packs per day: 1; Second Hand Exposure: Yes; Do You Dip or Chew Tobacco: No; Hx Alcohol Use: Yes Alcohol type: wine Alcohol type Comment: daily Alcohol Intake Frequency: Monthly or Less Hx Substance Use: No Preferred Language: Comoran Braiding Machine Tender Required: No Beliefs That Will Affect Care: None marital status: Current Living Situation: Spouse Feels Safe at Home: Yes Assistive Devices: Glasses Review of Systems Review of Systems: 13 point review of systems completed and is negative other than what is mentioned in the history of present illness. Physical Exam Physical Exam: Patient is in pain lying on the gurney. Constantly the changing his position to help get relief from lower back pain. Constitutional: WD/WN, vitals as above Eyes: PERRL, conjunctivae normal, anicteric sclerae ENMT: Ears: no hearing impairment Neck: trachea midline, no thyromegaly Respiratory: normal respiratory effort, lungs clear to auscultation Cardiovascular: Rate/Rhythm: + tachycardic (120) Gastrointestinal (Abdomen): normal bowel sounds, soft, nontender, no hepatosplenomegaly Skin: no rashes, warm and dry Neurologic: PERRL, EOMI, accommodation nl, no face palsy, no dysarthria CN's II-XI intact bilaterally Speech / Cognition: normal speech Equal strength and coordination of upper and lower extremities. Psychiatric: A+Ox3, euthymic affect PG Care Time/CCT Total # of Minutes Spent Total Time Spent with Patient: Total time spent is greater than 50% in coordination of care (as documented) at patient's floor/unit and/or counseling patient: Coding [place] [address] INT INP/OBS CARE 2/55MIN Patient Type Established History Problem Focused Exam Problem Focused Medical Decision Making Low Complexity Diagnoses Non-small cell lung cancer metastatic to brain C34.90; C79.31
[2025-04-26] MEDS ORDERED: ACETAMINOPHEN W/CODEINE #3 1 TAB PO PRN (15:08)
[2025-04-26] MEDS ORDERED: STAT IV/IM STA (15:12)
[2025-04-26] MEDS ORDERED: ACETAMINOPHEN 500 MG TAB PO PRN (15:12)
[2025-04-26] MEDS: SODIUM CHLORIDE 0.9% 1,000 ML IV SCH (15:20)
[2025-04-26] MEDS: SODIUM CHLORIDE 3 % 150 ML IV ONE (15:27)
[2025-04-26] MEDS: ACETAMINOPHEN 1,000 MG/100 ML VIAL IV PRN (15:32)
--- NOTE | 2025-04-26 15:50 | Electrocardiogram Report ---
Test Reason : Blood Pressure : */* mmHG Vent. Rate : 135 BPM Atrial Rate : 135 BPM P-R Int : 142 ms QRS Dur : 122 ms QT Int : 300 ms P-R-T Axes : 12 85 39 degrees QTcB Int : 450 ms Sinus tachycardia , atrial flutter cannot be excluded Right bundle branch block Abnormal ECG When compared with ECG of 14-Apr-2025 11:40, Vent. rate has increased by 64 bpm Right bundle branch block has replaced Non-specific intra-ventricular conduction block Confirmed by Con Saunders ([id number]) on 04/26/2025 3:50:33 PM Referred By: REFERRED SELF Confirmed By: Con Saunders
[2025-04-26 15:54] LABS: Anion Gap 12.0 (3-11); Blood Urea Nitrogen 27.0 mg/dl (6-23); Calcium 9.2 mg/dl (8.6-10.3); Carbon Dioxide 22.0 mmol/L (21-32); Chloride 100.0 mmol/L (98-107); Creatinine Clr Calc Pharmacy 55.3 ml/min; Glucose 142.0 mg/dl (70-99(Fasting)); Potassium 4.4 mmol/L (3.5-5.1); Sodium 134.0 mmol/L (136-145)
[2025-04-26] MEDS ORDERED: DEXAMETHASONE SOD INJ 4 MG/ML VIAL IV SCH (18:00)
--- NOTE | 2025-04-26 18:16 | Magnetic Resonance Report ---
MRI of the brain performed with and without IV contrast History: Weakness Comparison: None Technique: Multiplanar T1 weighted, axial T2/FLAIR, and susceptibility images were obtained without intravenous contrast. Following intravenous gadolinium based contrast administration, axial T2 weighted, diffusion, and T1-weighted images were obtained. Findings: No evidence for intracranial mass lesion, mass-effect, midline shift, or abnormal extra-axial fluid collection. There is an irregular enhancing lesion in the central right cerebellum measuring 2.4 x 2.0 cm with surrounding vasogenic edema. There are in addition, numerous smaller rounded enhancing masses in the remainder of the cerebellum bilaterally, with scattered areas of vasogenic edema. No evidence for herniation. No midline shift. At the right parasagittal region of the vertex, is a 10 mm lesion along the falx, without significant surrounding edema. Mild chronic microvascular ischemic changes in the white matter are noted generally. The orbits are grossly unremarkable. The ventricles and sulci are within normal limits for age. No abnormally reduced diffusion or evidence for acute infarct. Normal intravascular flow voids. Impression: Numerous enhancing lesions throughout of the cerebellum, as above, compatible with metastatic disease. No associated herniation. A smaller lesion about the falx, is seen and is more indeterminant, and there is no associated reactive edema. This may represent a meningioma, however with a metastasis difficult to entirely exclude. Correlation with prior imaging if available would be helpful. Electronically signed by Con Parsons 04-26-2025 6:16 PM
--- NOTE | 2025-04-26 18:52 | Neurology Consultation ---
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 The size of many of these lesions has increased, especially the prominent right cerebellar metastatic lesion, there is associated cytotoxic edema and partial effacement of the fourth ventricle. He also has an incidental posterior right parafalcine meningioma. He has been exhibiting signs of increased intracranial pressure including headache, dizziness, nausea, emesis. He has also had some ocular motility dysfunction previously, likely nerve palsies due to increased intracranial pressure. He has been receiving dexamethasone to help control tumor associated cytotoxic edema. Continue with dexamethasone as prescribed. May transition to an oral regimen when appropriate. I see that he has been given levetiracetam IV in the context of this current hospitalization. As far as I can gather, he has not been having seizures, however. If there is concern for seizures in this patient, would recommend a routine bedside EEG. I do not object to continuing levetiracetam for the time being. However, if he has not exhibited any potential seizure activity the levetiracetam can probably be discontinued. Cerebellar metastases do not typically increase the risk for seizures. The isolated small right posterior parafalcine meningioma would not be expected to increase his risk for seizures. Additional discussion had with patient's family at bedside regarding his diagnosis, prognosis, potential need for neurosurgical intervention in the event of acute hydrocephalus or herniation, potential need for transfer to a tertiary center for neurosurgical care. Patient and family are not interested in potential neurosurgical treatment at this time. Plan to continue to monitor his neurological status. In the event of progressive lethargy/obtundation, would recommend urgent noncontrast CT of the head in the context. History of Present Illness Reason for Consultation: Brain mets Requesting Physician: Ceci Attending Physician: Bandar Cabrera DO History of Present Illness The patient is an 79-year-old male with a history of non-small cell lung cancer, metastatic to the brain. A recent MRI completed April 02 revealed 3 enhancing cerebellar lesions, 1 of these in the right cerebellar hemisphere is relatively large with associated mass effect. There is also a 1.2 cm parafalcine meningioma within the right posterior cerebral hemisphere. He has been fo llowing with radiation oncology and has been prescribed Decadron, planning to move forward with radiotherapy to address the multiple brain metastases. He presented to the emergency department this morning with worsening dizziness and gait dysfunction. He is somewhat lethargic and is a limited historian, family at bedside. He has been exhibiting headache, dizziness, nausea, and emesis recently. I independently reviewed his repeat brain MRI done today. Per my review, there are at least 6 metastatic lesions located within the cerebellum. Many of these lesions are larger and now appear to exhibit cytotoxic edema. The largest lesion is within the right cerebellar hemisphere, near the vermis which now appears to measure 26.48 mm in largest diameter on axial views per my measurement. This lesion is larger in size than when compared with the previous MRI done April 02. There is some associated effacement of the fourth ventricle. There does not appear to be development of acute hydrocephalus. Allergies Allergy/AdvReac Type Severity Reaction Status Date / Time naproxen AdvReac Intermediate Headache Verified 04/14/25 11:35 Home Medications Medication Instructions Recorded Confirmed Type clopidogrel 75 mg tablet 75 mg PO DAILY 10/12/19 04/26/25 History aspirin 81 mg tablet 81 mg PO Q2D 03/24/25 04/26/25 History dexamethasone 4 mg tablet 4 mg PO DAILY #30 tabs 04/05/25 04/26/25 Rx acetaminophen 300 mg-codeine 30 mg 1 tab PO DAILY PRN Pain 04/06/25 04/26/25 History tablet acetaminophen 500 mg capsule 1,000 mg PO QID PRN Pain 04/06/25 04/26/25 History cyanocobalamin (vitamin B-12) 1,000 mcg PO DAILY 04/06/25 04/26/25 History 1,000 mcg tablet cholecalciferol (vitamin D3) 25 5,000 unit PO DAILY 04/07/25 04/26/25 History mcg (1,000 unit) tablet oxycodone 5 mg tablet 5 mg PO .Q4-6H PRN Pain 04/26/25 04/26/25 History Patient History Medical History (Updated 04/26/25 @ 15:26 by Ekta Ornelas MD, [facility]) Cigarette smoker 60 pack yr hx Unintentional weight loss 11lb wt loss in past 3 months per 06/01/25 pulm note Hyperlipidemia Arthritis Vascular problem PVD: poor artery vascular flow from waste down from radiation secondary to colon cancer>reason for plavix; follows with vascular History of colon cancer surgery/radiation/chemo 28 years ago Surgical History Family history of reaction to anesthesia daughter>"difficult sedating" History of colonoscopy History of colon resection 10/25 colon cancer History of tooth extraction H/O vascular surgery iliac artery stenting 2013; iliac artery stenting [facility] Family History (Updated 04/07/25 @ 13:40 by Eileen Santana RN) Brother Prostate cancer Father Cancer Prostate Aunt Cancer Colon Social History (Updated 04/07/25 @ 13:44 by Eileen Santana RN) Smoking Status: Former smoker Tobacco Type: Cigarettes Age Started Using Tobacco: 16; Age Quit Using Tobacco: 79; packs per day: 1; Second Hand Exposure: Yes; Do You Dip or Chew Tobacco: No; Hx Alcohol Use: Yes Alcohol type: wine Alcohol type Comment: daily Alcohol Intake Frequency: Monthly or Less Hx Substance Use: No Preferred Language: Setswana Foil Wrapper Required: No Beliefs That Will Affect Care: None marital status: Current Living Situation: Spouse Feels Safe at Home: Yes Assistive Devices: Glasses Review of Systems Constitutional: + fatigue; no fever Eyes: no blind spots and no diplopia Ear, Nose, Mouth, Throat: no hearing loss Respiratory: no cough and no dyspnea Cardiovascular: no chest pain and no palpitations Gastrointestinal: as per Subjective / HPI, + nausea and + vomiting Genitourinary: no dysuria Musculoskeletal: no myalgia Integumentary: no rash and no lesions Neurologic: as per Subjective / HPI, + generalized weakness, + headache(s), + abnormal speech and + confusion Psychiatric: no depression and no anxiety Hematologic / Lymphatic: no easy bleeding and no easy bruising Exam (Neuro) Constitutional: well developed and + frail appearing Eyes: normal visual pace by confrontation, PERRL and EOM intact bilaterally; no nystagmus Neurologic: Oriented to:: Person, Place and Time Memory: Remote Intact Attention: negative Span Intact Speech Fluency: negative Dysarthria or Dysfluency Speech Aphasia: negative Aphasia Fund of Knowledge: Current Events, Past History and Vocabulary Cranial Nerves: Normal II, III, IV, , V, VII, VIII, IX, X, XI and XII Motor Strength: Normal Lower Extremities and Normal Upper Extremities Motor Tone: Normal Lower Extremities and Normal Upper Extremities Muscle Bulk/Involuntary Movements: No Involuntary Movements; negative Muscle Atrophy Sensation: Light Touch Intact, Pain/Temperature Intact and Proprioception Intact Coordination: Finger-Nose Abnormal and Heel-Parmar Abnormal Deep Tendon Reflexes: Rt Triceps: 2+, Lt Triceps: 2+, Rt Biceps: 2+, Lt Biceps: 2+, Rt Brachioradialis: 2+, Lt Brachioradialis: 2+, Rt Patellar: 2+, Lt Patellar: 2+, Rt Ankle: 1+ and Lt Ankle: 1+ Special Tests: negative Babinski Present Results & Data Vital Signs (Past 12 Hours) Vital Signs Temp Pulse Pulse Resp BP BP Pulse Ox 04/26/25 14:04 130 H 04/26/25 13:30 138 H 18 186/95 H 98 04/26/25 13:12 04/26/25 12:46 36.4 C L 131 H 29 H 167/100 H 99 04/26/25 11:00 04/26/25 11:00 122 H 24 188/106 H 98 04/26/25 10:04 125 H 04/26/25 09:58 36.6 C 127 H 22 187/94 H 99 O2 Del Method 04/26/25 14:04 04/26/25 13:30 Room Air 04/26/25 13:12 Room Air 04/26/25 12:46 Room Air 04/26/25 11:00 Room Air 04/26/25 11:00 04/26/25 10:04 04/26/25 09:58 Room Air Laboratory Results WBC 26.92, hemoglobin 13.1, hematocrit 37.7, platelet count 314, sodium 135, potassium 4.0, BUN 27, creatinine 0.95, glucose 115, calcium 9.9, magnesium 2.0, AST 24, ALT 68, CRP less than 0.50 Diagnostic Findings An electrocardiogram completed today have revealed sinus tachycardia, possible atrial flutter Coding Level of Care Code 30785 INT INP/OBS CARE 3/75MIN Diagnoses Cerebellar metastasis C79.31 Primary adenocarcinoma of upper lobe of left lung C34.12 Time Spent (min) 75 Comment Total time includes patient contact, chart review, counseling, note preparation
[2025-04-26 19:25] LABS: Anion Gap 10.0 (3-11); Blood Urea Nitrogen 28.0 mg/dl (6-23); Calcium 9.0 mg/dl (8.6-10.3); Carbon Dioxide 22.0 mmol/L (21-32); Chloride 104.0 mmol/L (98-107); Creatinine Clr Calc Pharmacy 58.8 ml/min; Glucose 142.0 mg/dl (70-99(Fasting)); Potassium 4.7 mmol/L (3.5-5.1); Sodium 136.0 mmol/L (136-145)
[2025-04-26] MEDS: dexAMETHasone 4 MG in SYRINGE 0 ML IV SCH (19:31)
[2025-04-26] MEDS: ENOXAPARIN INJ 40 MG/0.4 ML SYR SQ STA (19:42)
[2025-04-26 23:52] LABS: Anion Gap 8.0 (3-11); Blood Urea Nitrogen 26.0 mg/dl (6-23); Calcium 8.8 mg/dl (8.6-10.3); Carbon Dioxide 23.0 mmol/L (21-32); Chloride 105.0 mmol/L (98-107); Creatinine Clr Calc Pharmacy 55.0 ml/min; Glucose 135.0 mg/dl (70-99(Fasting)); Potassium 4.6 mmol/L (3.5-5.1); Sodium 136.0 mmol/L (136-145)
[2025-04-27 04:24] LABS: Anion Gap 6.0 (3-11); Blood Urea Nitrogen 24.0 mg/dl (6-23); Calcium 9.0 mg/dl (8.6-10.3); Carbon Dioxide 26.0 mmol/L (21-32); Chloride 105.0 mmol/L (98-107); Creatinine Clr Calc Pharmacy 60.0 ml/min; Glucose 139.0 mg/dl (70-99(Fasting)); Potassium 4.3 mmol/L (3.5-5.1); Sodium 137.0 mmol/L (136-145)
--- NOTE | 2025-04-27 07:29 | Critical Care Progress Note ---
Date of Service April 27, 2025 Assessment & Plan (1) Ataxia: (2) Adenocarcinoma of lung: (3) COPD with emphysema: (4) Multiple pulmonary nodules: (5) Cerebellar metastasis: (6) Cigarette smoker: (7) History of colon cancer: (8) Nontraumatic cerebral edema: (9) Primary adenocarcinoma of upper lobe of left lung: (10) Headache: (11) Hypertensive urgency: Plan Reason Critically Ill: 79-year-old male admitted to the hospital for severe headache and inability to ambulate since today morning Past medical history: Stage IV colorectal cancer s/p chemoradiation and surgery at the age of 52, PVD on Plavix, hemochromatosis Recently diagnosed stage IV adenocarcinoma of the lung Neuro - [facility]: -- Ataxia, dizziness Likely from cerebral edema Got 150 mL of hypertonic saline bolus on 04/26/2025 Dexamethasone 4 mg every 6 MRI of the brain 04/26/2025: 2.4 x 2 cm right cerebellum lesion with surrounding vasogenic edema, numerous smaller rounded enhancing masses in the remainder of the cerebellum bilaterally Cardiac - -- S/p hypertensive urgency Given the cerebral edema, will keep permissive hypertension Will treat only for SBP greater than 180 diastolic greater than 110 --Coronary artery disease On Plavix at home -- Sinus tachycardia EKG 04/26/2025, 10:26 AM: Sinus tachycardia, right bundle branch block, mild ST depressions in the lateral leads, no T wave changes Respiratory - --Saturating well on room air Chest x-ray from today does not show any significant change compared to before, left upper lobe mass persists -- Left upper lobe mass --> metastatic adenocarcinoma of the lung MRI of the brain positive for spread with cerebral edema Diagnosed 04/14/2025 PET/CT showed positivity in the adrenal glands CT chest 03/22/2025 personally reviewed: Left upper lobe mass 7.5 x 6 x 7 cm Centrilobular emphysema appreciated bilaterally Right upper lobe focal area of saccular bronchiectasis and scarring Multiple other tiny small pulmonary nodules Small left-sided pleural effusion Mediastinal lymphadenopathy -- COPD with emphysema Gold A Not on any inhalers right now --Current smoker > [id number] smoking history Currently smoking 5 cigarettes a day Importance of quitting explained the patient in depth GI - -- Mild elevation in AST Continue to trend -- Chronic diarrhea No change in consistency or frequency --History of stage IV colorectal cancer Diagnosed at the age of 52 s/p chemoradiation and surgery RENAL/LYTES - -- Monitor BUNs/creatinine Avoid nephrotoxic medication - --History of prostate nodules MRI negative, biopsy was never performed ENDO - -- ICU hyperglycemia protocol HEME - -- Macrocytic anemia Continue to monitor ID - -- Leukocytosis Patient is on dexamethasone at home He also seems to be dehydrated Chest x-ray is clean, UA is clean No clear source of infection --Prophylaxis VTE: Lovenox GI: Pantoprazole Lines: Peripheral Diet: Cardiac Plan: In/out: +523, urine output 1727 Continue dexamethasone 4 mg every 6 hours. Will DC Keppra. Can transition dexamethasone to p.o. in the next couple of days. Plan would be to have full brain radiation as there is increasing size of the lesions in the brain compared to before. Case discussed with primary team, radiation oncology as well as oncology Family was updated at bedside I spent more than 50 minutes looking in the chart, images, discussing the plan of care with the patient, RN as well as primary team This includes time spent evaluating patient, direct bedside care, chart review, placing orders, interpretation of diagnostic studies, discussion with consultants, patient, and family members, as well as other required patient management activities. This time is exclusive of all separately billable procedures, and teaching time and separate from and in addition to any other critical care service time. Please note the above document was generated using voice recognition software. It may contain grammatical, syntax or spelling errors. Admission and Anticipated Discharge Date Admission Date: April 26, 2025 Subjective Patient seen and examined at bedside. No acute distress, no adverse events overnight Complains of mild headache which is significantly improved compared to yesterday. He had his breakfast today without any issues Denies any difficulty swallowing Was saturating well on room air. Does complain of some double vision which has been going on since last couple of days. Review of Systems 2 Review of Systems: All systems reviewed & are unremarkable except as noted in Subjective Physical Exam 2 Physical Exam: Constitutional: No acute distress, frail-appearing HEENT: EOMI, PERRLA, double vision as per the patient Respiratory system: Good air entry bilaterally, no wheeze, no rhonchi, no crackles CVS: S1-S2 positive, no murmurs or gallops Abdomen: Soft, nontender, nondistended, positive bowel sounds x4 Extremities: +2 pulses bilaterally radialis/ dorsalis pedis, no cyanosis, no edema Neuro: Somnolent but easily arousable, awake alert oriented times self and place Psych: Flat mood and affect G/U: Positive Linn Skin: no rashes, warm and dry Lymphatic: no cervical or axillary lymphadenopathy Results & Data Results & Data Vital Signs (Past 12 Hours) Vital Signs Temp Pulse Resp BP Pulse Ox O2 Del Method 04/27/25 06:00 140/67 04/27/25 06:00 95 H 27 H 98 04/27/25 05:30 87 16 97 04/27/25 05:30 108/51 L 04/27/25 05:30 108/51 L 04/27/25 05:30 108/51 L 04/27/25 05:30 108/51 L 04/27/25 05:00 111/51 L 04/27/25 04:54 87 16 97 04/27/25 04:30 131/57 L 04/27/25 04:27 91 H 19 98 04/27/25 04:00 125/55 L 04/27/25 04:00 125/55 L 04/27/25 04:00 125/55 L 04/27/25 04:00 125/55 L 04/27/25 04:00 125/55 L 04/27/25 04:00 92 H 13 97 04/27/25 03:00 92 H 17 99 04/27/25 03:00 123/67 04/27/25 02:30 123/60 04/27/25 02:15 90 14 99 04/27/25 02:06 87 16 97 04/27/25 01:51 99 H 6 L 98 04/27/25 01:00 122/57 L 04/27/25 00:57 98 H 17 98 04/27/25 00:30 132/75 04/27/25 00:30 132/75 04/27/25 00:30 132/75 04/27/25 00:30 37.0 C 96 H 18 97 04/27/25 00:00 123/64 04/27/25 00:00 123/64 04/27/25 00:00 36.9 C 89 17 98 04/26/25 23:30 131/76 04/26/25 23:30 131/76 04/26/25 23:27 36.9 C 96 H 17 98 04/26/25 23:17 97 H 04/26/25 23:00 115/51 L 04/26/25 23:00 115/51 L 04/26/25 23:00 115/51 L 04/26/25 23:00 115/51 L 04/26/25 23:00 115/51 L 04/26/25 23:00 115/51 L 04/26/25 23:00 115/51 L 04/26/25 23:00 37.0 C 85 18 99 04/26/25 22:31 112/55 L 04/26/25 22:31 112/55 L 04/26/25 22:15 37.1 C 89 16 97 04/26/25 22:03 37.2 C 94 H 16 97 04/26/25 22:01 117/59 L 04/26/25 22:01 117/59 L 04/26/25 21:51 37.1 C 97 H 23 98 04/26/25 21:30 119/59 L 04/26/25 21:26 113/53 L 04/26/25 21:21 37.3 C 94 H 26 H 04/26/25 21:00 37.4 C 115 H 25 H 04/26/25 20:31 118/62 04/26/25 20:06 37.6 C H 100 H 23 97 04/26/25 20:00 109/54 L 04/26/25 20:00 109/54 L 04/26/25 20:00 Room Air 04/26/25 20:00 37.1 C 04/26/25 19:48 37.6 C H 98 H 18 97 04/26/25 19:33 37.6 C H 94 H 16 96 04/26/25 19:30 100/56 L Laboratory Results 04/26/25 10:10 04/27/25 03:31 Coding Level of Care Code 88886 SUB INP/OBS CARE 3/50MIN Diagnoses Ataxia R27.0 Adenocarcinoma of lung C34.90 COPD with emphysema J43.9 Multiple pulmonary nodules R91.8 Cerebellar metastasis C79.31 Cigarette smoker F17.210 History of colon cancer Z85.038 Nontraumatic cerebral edema G93.6 Primary adenocarcinoma of upper lobe of left lung C34.12 Headache R51.9 Hypertensive urgency I16.0
[2025-04-27 08:08] LABS: Anion Gap 6.0 (3-11); Blood Urea Nitrogen 25.0 mg/dl (6-23); Calcium 9.1 mg/dl (8.6-10.3); Carbon Dioxide 26.0 mmol/L (21-32); Chloride 104.0 mmol/L (98-107); Creatinine Clr Calc Pharmacy 53.9 ml/min; Glucose 153.0 mg/dl (70-99(Fasting)); Potassium 4.5 mmol/L (3.5-5.1); Sodium 136.0 mmol/L (136-145)
--- NOTE | 2025-04-27 08:37 | Hospitalist Progress Note ---
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 #Symptomatic Cerebral Edema // Stage IV Pulmonary Adenocarcinoma with metastatic disease to the cerebellum, bones, and adrenal gland Based on the patient's clinical exam, acute onset of symptoms, and imaging findings suspect they are acutely symptomatic of their cerebral edema in the s etting of the cerebellar metastases; the partial cranial nerve palsy and ataxia of the upper and lower extremities is concerning for threatening herniation; symptomatically improved overnight with interventions provided Continue dexamethasone 4 mg IV every 6 hours Minimize fluid resuscitation in the setting of cerebral edema to avoid additional vasogenic edema Maintain head of bed approximately 30 degrees to offset intracranial pressure Intensive care and radiation oncology consulted Admission and Anticipated Discharge Date Admission Date: April 26, 2025 Review of Systems Review of Systems: Constitutional: denies fevers, chills, malaise, fatigue Cardiovascular: denies angina, palpitations, syncope Pulmonary: denies cough, dyspnea on exertion, pleuritic chest pain Gastrointestinal: endorses constipation, nausea; denies emesis, dysphagia, diarrhea Neurologic: endorses improved but still present dizziness, difficulty with coordination of upper and lower extremities; denies focal weakness, paresthesias or numbness, diplopia Integumentary: denies new or developing rashes or lesions Physical Exam Physical Exam: General: elderly male in moderate distress secondary to presenting symptoms Vital Signs: reviewed; persistently tachycardic, hypertensive, tachypneic saturating well on room air HEENT: normocephalic, atraumatic; pulls are equally reactive to light though slightly diminished responsiveness; horizontal extraocular motion is mildly improved laterally in both eyes without associated diplopia Pulmonary: symmetric chest wall excursion; CTAB Cardiovascular: regular rate and rhythm, no murmurs rubs or gallops; S1 and S2 normal; bilateral radial and posterior tibial pulses 2+; trace bilateral lower extremity edema Gastrointestinal: soft, nondistended Genitourinary: Linn catheter in place collecting approximately 100 mL of pale yellow urine without sediment Neurologic: improved but still reduced lateral extraocular motion otherwise cranial nerves II through XII are intact; ataxic in the bilateral upper extremities, unable to fully assess lower extremity secondary to weakness; g eneralized weakness without focal weakness of the upper or lower extremities; gross tactile sensation intact throughout Results & Data Results & Data Vital Signs (Past 12 Hours) Vital Signs Temp Pulse Resp BP Pulse Ox 04/27/25 07:54 77 04/27/25 06:00 140/67 04/27/25 06:00 95 H 27 H 98 04/27/25 05:30 87 16 97 04/27/25 05:30 108/51 L 04/27/25 05:30 108/51 L 04/27/25 05:30 108/51 L 04/27/25 05:30 108/51 L 04/27/25 05:00 111/51 L 04/27/25 04:54 87 16 97 04/27/25 04:30 131/57 L 04/27/25 04:27 91 H 19 98 04/27/25 04:00 125/55 L 04/27/25 04:00 125/55 L 04/27/25 04:00 125/55 L 04/27/25 04:00 125/55 L 04/27/25 04:00 125/55 L 04/27/25 04:00 92 H 13 97 04/27/25 03:00 92 H 17 99 04/27/25 03:00 123/67 04/27/25 02:30 123/60 04/27/25 02:15 90 14 99 04/27/25 02:06 87 16 97 04/27/25 01:51 99 H 6 L 98 04/27/25 01:00 122/57 L 04/27/25 00:57 98 H 17 98 04/27/25 00:30 132/75 04/27/25 00:30 132/75 04/27/25 00:30 132/75 04/27/25 00:30 37.0 C 96 H 18 97 04/27/25 00:00 123/64 04/27/25 00:00 123/64 04/27/25 00:00 36.9 C 89 17 98 04/26/25 23:30 131/76 04/26/25 23:30 131/76 04/26/25 23:27 36.9 C 96 H 17 98 04/26/25 23:17 97 H 04/26/25 23:00 115/51 L 04/26/25 23:00 115/51 L 04/26/25 23:00 115/51 L 04/26/25 23:00 115/51 L 04/26/25 23:00 115/51 L 04/26/25 23:00 115/51 L 04/26/25 23:00 115/51 L 04/26/25 23:00 37.0 C 85 18 99 04/26/25 22:31 112/55 L 04/26/25 22:31 112/55 L 04/26/25 22:15 37.1 C 89 16 97 04/26/25 22:03 37.2 C 94 H 16 97 04/26/25 22:01 117/59 L 04/26/25 22:01 117/59 L 04/26/25 21:51 37.1 C 97 H 23 98 04/26/25 21:30 119/59 L 04/26/25 21:26 113/53 L 04/26/25 21:21 37.3 C 94 H 26 H 04/26/25 21:00 37.4 C 115 H 25 H PG Care Time/CCT Total # of Minutes Spent Total Time Spent with Patient: Total time spent is greater than 50% in coordination of care (as documented) at patient's floor/unit and/or counseling patient: Coding Level of Care Code 93337 SUB INP/OBS CARE 3/50MIN History Detailed Exam Detailed Medical Decision Making Moderate Complexity Diagnoses Nontraumatic cerebral edema G93.6 Cerebellar metastasis C79.31 Non-small cell lung cancer metastatic to brain C34.90; C79.31 Primary adenocarcinoma of upper lobe of left lung C34.12 Ataxia R27.0 CN palsy, bilateral H49.23 Non-small cell lung cancer metastatic to bone C34.90; C79.51 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
[2025-04-27 08:50] LABS: Magnesium 2.3 mg/dl (1.7-2.4)
--- NOTE | 2025-04-27 10:06 | Radiation Oncology Progress Nt ---
Date of Service April 27, 2025 Assessment & Plan Admission and Anticipated Discharge Date Admission Date: April 26, 2025 Subjective Patient seen today in follow-up. He is greatly improved in regards to pain control. Today he has no back pain. He has no complaints of nausea. His headache has resolved. At our request he has undergone recheck brain MRI. MRI Brain Numerous enhancing lesions throughout of the cerebellum, as above, compatible with metastatic disease. No associated herniation. A smaller lesion about the falx, is seen and is more indeterminant, and there is no associated reactive edema. This may represent a meningioma, however with a metastasis difficult to entirely exclude. Correlation with prior imaging if available would be helpful. Plan: MRI images have been reviewed. Patient has had enlargement of lesions. It is felt that he will be better served by hippocampal sparing whole brain radiation therapy. This was reviewed with the patient. Planning for 10 fractions. We discussed that should he be discharged, he could continue his treatments as an outpatient. He does already have issues with short-term memory loss from his previous chemotherapy. ATTENDING ADDENDUM: Given the progression of disease, we have recommended conversion of treatment to hippocampal sparing whole brain radiation therapy which will be completed in 10 fractions. Treatment may be delivered in the outpatient setting. Treatment will start once a treatment has been approved. Please call us any further questions or concerns. Radiation History Diagnosis: History of colon cancer. Metastatic Lung cancer. Biopsy pending. Metastatic disease to the brain Treatment: History of treatment for colon cancer included radiation therapy at [place] in 1996 to abdomen/pelvis. Results & Data Vital Signs (Past 12 Hours) Vital Signs Temp Pulse Resp BP Pulse Ox 04/27/25 07:54 77 04/27/25 06:00 140/67 04/27/25 06:00 95 H 27 H 98 04/27/25 05:30 87 16 97 04/27/25 05:30 108/51 L 04/27/25 05:30 108/51 L 04/27/25 05:30 108/51 L 04/27/25 05:30 108/51 L 04/27/25 05:00 111/51 L 04/27/25 04:54 87 16 97 04/27/25 04:30 131/57 L 04/27/25 04:27 91 H 19 98 04/27/25 04:00 125/55 L 04/27/25 04:00 125/55 L 04/27/25 04:00 125/55 L 04/27/25 04:00 125/55 L 04/27/25 04:00 125/55 L 04/27/25 04:00 92 H 13 97 04/27/25 03:00 92 H 17 99 04/27/25 03:00 123/67 04/27/25 02:30 123/60 04/27/25 02:15 90 14 99 04/27/25 02:06 87 16 97 04/27/25 01:51 99 H 6 L 98 04/27/25 01:00 122/57 L 04/27/25 00:57 98 H 17 98 04/27/25 00:30 132/75 04/27/25 00:30 132/75 04/27/25 00:30 132/75 04/27/25 00:30 37.0 C 96 H 18 97 04/27/25 00:00 123/64 04/27/25 00:00 123/64 04/27/25 00:00 36.9 C 89 17 98 04/26/25 23:30 131/76 04/26/25 23:30 131/76 04/26/25 23:27 36.9 C 96 H 17 98 04/26/25 23:17 97 H 04/26/25 23:00 115/51 L 04/26/25 23:00 115/51 L 04/26/25 23:00 115/51 L 04/26/25 23:00 115/51 L 04/26/25 23:00 115/51 L 04/26/25 23:00 115/51 L 04/26/25 23:00 115/51 L 04/26/25 23:00 37.0 C 85 18 99 04/26/25 22:31 112/55 L 04/26/25 22:31 112/55 L 04/26/25 22:15 37.1 C 89 16 97 04/26/25 22:03 37.2 C 94 H 16 97 04/26/25 22:01 117/59 L 04/26/25 22:01 117/59 L PG Care Time/CCT Total # of Minutes Spent Total Time Spent with Patient: Total time spent is greater than 50% in coordination of care (as documented) at patient's floor/unit and/or counseling patient: [place] [address] SUB INP/OBS CARE MIN Patient Type Established Medical Decision Making Moderate Complexity
[2025-04-27] MEDS: PANTOprazole 40 MG/10 ML SYR IV SCH (10:11)
[2025-04-27] MEDS: CLOPIDOGREL BISULFATE 75 MG TAB PO SCH (10:11)
[2025-04-27] MEDS: CHOLECALCIFEROL 125 MCG (5,000 UNITS) TAB PO SCH (11:02)
[2025-04-27] MEDS: CYANOCOBALAMIN (B-12) 500 MCG TABLET PO SCH (11:03)
[2025-04-27] MEDS: ENOXAPARIN INJ 40 MG/0.4 ML SYR SQ SCH (14:51)
--- NOTE | 2025-04-28 10:05 | Pulmonology Progress Note ---
Date of Service April 28, 2025 Assessment & Plan (1) Ataxia: (2) Adenocarcinoma of lung: (3) COPD with emphysema: (4) Multiple pulmonary nodules: (5) Cerebellar metastasis: (6) Cigarette smoker: (7) History of colon cancer: (8) Nontraumatic cerebral edema: Plan -- Left upper lobe mass --> metastatic adenocarcinoma of the lung MRI of the brain positive for spread with cerebral edema Diagnosed 04/14/2025 PET/CT showed positivity in the adrenal glands CT chest 03/22/2025 personally reviewed: Left upper lobe mass 7.5 x 6 x 7 cm Centrilobular emphysema appreciated bilaterally Right upper lobe focal area of saccular bronchiectasis and scarring Multiple other tiny small pulmonary nodules Small left-sided pleural effusion Mediastinal lymphadenopathy -- COPD with emphysema Gold A Not on any inhalers right now --Current smoker > [id number] smoking history Currently smoking 5 cigarettes a day Importance of quitting explained the patient in depth --History of stage IV colorectal cancer Diagnosed at the age of 52 s/p chemoradiation and surgery --History of prostate nodules MRI negative, biopsy was never performed Plan: Continue dexamethasone 4 mg every 6 hours. Can transition to p.o. Tapering will be deferred to radiation oncology Case was discussed with oncology, patient will finish the radiation to the brain and then chemotherapy will be started for his lung cancer Case discussed with primary team No further recommendation from pulmonary perspective, will sign off Please call directly with any questions Please note the above document was generated using voice recognition software. It may contain grammatical, syntax or spelling errors.Any formal questions or concerns about the content, text or information contained within the body of this dictation should be directly addressed to the provider for clarification.. Admission and Anticipated Discharge Date Admission Date: April 26, 2025 Subjective Patient seen and examined at bedside. No acute distress, no adverse events overnight He said he is feeling much better Denied any headache today Double vision is also resolved No nausea or vomiting The only thing he complains about is having multiple bowel movements. It is not diarrhea he does have a history of colectomy done any whenever he goes he usually goes a lot of stools but yesterday he had an accident on the bed that is why he was concerned about the dexamethasone is one of the reason what was happening Fair appetite Review of Systems 2 Review of Systems: All systems reviewed & are unremarkable except as noted in Subjective Physical Exam 2 Physical Exam: Constitutional: No acute distress, frail-appearing HEENT: EOMI, PERRLA Respiratory system: Good air entry bilaterally, no wheeze, no rhonchi, mild crackles bilateral lower lobes CVS: S1-S2 positive, no murmurs or gallops Abdomen: Soft, nontender, nondistended, positive bowel sounds x4 Extremities: +2 pulses bilaterally radialis/ dorsalis pedis, no cyanosis, no edema Neuro: Awake alert oriented x 3 Psych: Normal mood and affect G/U: Positive [place] Skin: no rashes, warm and dry Lymphatic: no cervical or axillary lymphadenopathy Results & Data Results & Data Vital Signs (Past 12 Hours) Vital Signs Temp Pulse Pulse Resp BP Pulse Ox O2 Del Method 04/28/25 07:57 36.9 C 77 20 167/75 H 97 Room Air 04/28/25 03:26 36.8 C 77 16 135/66 98 Room Air 04/27/25 22:44 36.7 C 95 H 16 150/69 H 95 Room Air Laboratory Results 04/26/25 10:10 04/27/25 07:34 PG Care Time/CCT Total # of Minutes Spent Total Time Spent with Patient: Total time spent is greater than 50% in coordination of care (as documented) at patient's floor/unit and/or counseling patient: Coding Level of Care Code 43188 SUB INP/OBS CARE 2/35MIN Diagnoses Ataxia R27.0 Adenocarcinoma of lung C34.90 COPD with emphysema J43.9 Multiple pulmonary nodules R91.8 Cerebellar metastasis C79.31 Cigarette smoker F17.210 History of colon cancer Z85.038 Nontraumatic cerebral edema G93.6
[2025-04-28 15:25] VITALS: RESP 20; TEMP 97.3; O2SAT 99
--- NOTE | 2025-04-28 15:36 | Discharge Summary ---
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 Patient received hippocampal sparing whole brain radiation therapy on day of discharge. Plan will be to discharge on decadron 4 mg q8h with Radiation oncology managing the corticosteroid taper. Admission HPI Per Admitting Provider Mr. Castro is an 79-year-old male whose active medical conditions include recently diagnosed stage IV non-small cell pulmonary adenocarcinoma with metastatic disease to multiple organ systems including the central nervous system in the cerebellum, panlobular emphysema in the setting of nicotine use disorder, benign prostatic hyperplasia with obstructive symptoms among other chronic medical conditions who presented to [facility] on 04/26 due to sudden onset dizziness and inability to ambulate on the same morning. The patient woke without symptomatology however shortly after getting out of bed and while dressing he experienced severe dizziness, nausea, and weakness which is persistent even when not moving and lying in the hospital gurney. He has not experienced symptoms like this previously. He does endorse a persistent headache that is similar to the one he has had within the past few weeks surrounding his initial diagnosis of his metastatic pulmonary cancer. Discharge Exam Constitutional WD/WN, vitals as above Neck trachea midline, no thyromegaly Respiratory normal respiratory effort, lungs clear to auscultation Cardiovascular RRR, no murmur, no edema Discharge Plan Discharge Items Patient Disposition: Home - Self-Care Reason For Visit: INTACTABLE NAUSEA AND VOMITING Discharge Diagnosis: Intractable Nausea and Vomiting Condition on Discharge: Serious Activity: Resume your previous activity Non-emergency contact: Primary Care Provider Call non-emergency contact if: you have any medication questions Follow-up/Referrals: Freddy Otto MD [Primary Care Provider] - Diet: Regular Addtl Attending Provider Instructions: Dexamethasone Pending Studies at Discharge: No Stand-Alone Forms: [email or web address], Smoking Cessation Medications and DC Order Prescriptions: New pantoprazole 40 mg tablet,delayed release (DR/EC) 40 mg PO DAILY Qty: 30 0RF Continued clopidogrel 75 mg tablet 75 mg PO DAILY Patient Comments: 04/26-Last filled 01/20/25 90 day supply #90 cholecalciferol (vitamin D3) 25 mcg (1,000 unit) tablet 5,000 unit PO DAILY Patient Comments: 04/26- otc unable to verify cyanocobalamin (vitamin B-12) 1,000 mcg Tablet 1,000 mcg PO DAILY Patient Comments: 04/26- otc unable to verify acetaminophen-codeine 300-30 mg Tablet 1 tab PO DAILY PRN (Reason: Pain) acetaminophen 500 mg Capsule 1,000 mg PO QID PRN (Reason: Pain) Patient Comments: 04/26- otc unable to verify oxycodone 5 mg tablet 5 mg PO .Q4-6H PRN (Reason: Pain) Changed dexamethasone 4 mg tablet 4 mg PO TID Qty: 120 0RF Held aspirin 81 mg tablet 81 mg PO Q2D Hold Instructions: Provider's Order Patient Comments: 04/26- otc unable to verify Discharge Orders: Discharge Order (Routine); Ordered 04/28/25 Ordered By: Que Kan Admission Data Admit Date/Time: 04/26/25 12:55 Attending Provider: Que Kan Admit Provider: Bandar Cabrera Primary Care Provider: Freddy Otto Other Providers: Bandar Cabrera; Lashae Crowe; Willam Dyer; Terence Murguia; Jacque Blanco; Lulu Mcmahan; Quentin Bettencourt; Melissa Luna Other Interventions: Discharge Summary Assessment (RN) Last Done: 04/28/25 15:38 Hospital Stay Data Consultations 04/26/25 13:07 ED Decision to Admit Stat 04/26/25 13:27 Consult Radiation Oncology Stat 04/26/25 14:15 Consult Neurology Stat Diagnostic Imagining Performed 04/26/25 10:08 CT head/brain wo con Stat 04/26/25 11:25 CT abd pelvis IV con only Stat 04/26/25 13:58 MRI Brain [MR brain wo/w con] Stat Pending Results Patient Have Any Pending Studies at Discharge: No Discharge Instructions Given to Patient (Per Discharging Provider) Dexamethasone Total Time Total Time Spent Total Time Spent (In Minutes): 32 Coding Level of Care Code 12053 INP/OBS DISCH >30 MIN Diagnoses Nontraumatic cerebral edema G93.6 Cerebellar metastasis C79.31 Non-small cell lung cancer metastatic to brain C34.90; C79.31 Primary adenocarcinoma of upper lobe of left lung C34.12 Ataxia R27.0 CN palsy, bilateral H49.23 Non-small cell lung cancer metastatic to bone C34.90; C79.51 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
[2025-04-28 15:39] VITALS: BP 143/77; PULSE 95
== END 2025-04-28 16:58 | disposition home or self-care (01) | DRG 180 ==
LOC: ED 09:54 → 1E 12:55 → SUATTDRO 12:55 → 1E 15:00 → 2N 04-27 15:16

== ENCOUNTER 2025-05-26 13:13 | Inpatient (IN) ==
--- NOTE | 2025-05-19 11:28 | Anesthesiology Consultation ---
Date of Service May 19, 2025 Assessment & Plan (1) Encounter for pre-operative examination: - check EKG and CBC with diff STAT am DOS. - discharge summary 04/28/25 [facility]: "...Symptomatic Cerebral Edema // Stage IV Pulmonary Adenocarcinoma with metastatic disease to the cerebellum, bones, and adrenal gland...acutely symptomatic of their cerebral edema in the setting of the cerebellar metastases; the partial cranial nerve palsy and ataxia of the upper and lower extremities is concerning for threatening herniation; Thankfully patient improved over the course of his hospital stay with q6h corticosteroids, discussed with radiation oncology and Neurology. Patient received hippocampal sparing whole brain radiation therapy on day of discharge...to discharge on decadron 4 mg q8h with Radiation oncology managing the corticosteroid taper..." - Per manager of selection and assessment on 05/19/25: No known infectious disease contacts, current infectious disease symptoms in past 10 days or COVID positive test result in the past 30 days. Chart Review Chart Review: Acceptable Risk for Surgery and Patient NOT seen in Pre Admission Testing History Surgery Operation Date: 05/26/25 14:50 Proposed Procedures p Insertion of Access Port with Fluoroscopy - Amandeep Jauregui DO, FACS Height/Weight Height: 5 ft 10 in Weight: 63.503 kg Allergies Allergy/AdvReac Type Severity Reaction Status Date / Time naproxen AdvReac Intermediate Headache Verified 05/19/25 10:24 Medications Home Medications Medication Instructions Recorded Confirmed Last Taken clopidogrel 75 mg tablet 75 mg PO DAILY 10/12/19 05/19/25 04/08/25 aspirin 81 mg tablet 81 mg PO Q2D 03/24/25 05/19/25 04/13/25 acetaminophen 300 mg-codeine 30 mg 1 tab PO Q6H PRN Pain 04/06/25 05/19/25 04/13/25 00:00 tablet acetaminophen 500 mg capsule 1,000 mg PO QID PRN Pain 04/06/25 05/19/25 04/14/25 06:00 cyanocobalamin (vitamin B-12) 1,000 mcg PO DAILY 04/06/25 05/19/25 04/13/25 07:00 1,000 mcg tablet cholecalciferol (vitamin D3) 25 5,000 unit PO DAILY 04/07/25 05/19/25 04/13/25 07:00 mcg (1,000 unit) tablet oxycodone 5 mg tablet 5 mg PO .Q4-6H PRN Pain 04/26/25 05/19/25 Unknown dexamethasone 4 mg tablet 4 mg PO TID #120 tabs 04/28/25 05/19/25 Unknown pantoprazole 40 mg tablet,delayed 40 mg PO DAILY #30 tabs 04/28/25 05/19/25 Unknown release Past Medical History Medical History (Updated 05/19/25 @ 11:21 by Teetee Crawford PA-C) Arthritis Cigarette smoker 60 pack yr hx CN palsy, bilateral pt unaware COPD with emphysema no inhalers, controlled per pt GERD (gastroesophageal reflux disease) Hemochromatosis follows with [facility] heme and receives monthly phlebotomy tx; heterozygous for H63D mutation History of colon cancer surgery/radiation/chemo 1996 years ago Hyperlipidemia Lung cancer metastatic to brain reason for up coming port placement PAD (peripheral artery disease) Shortness of breath with activity and flight of stairs Unintentional weight loss 11lb wt loss in past 3 months per 06/01/25 pulm note Vascular problem PVD: poor artery vascular flow from waste down from radiation secondary to colon cancer>reason for plavix; follows with vascular Vertigo gets dizzy with standing Past Family History Family History Brother Prostate cancer Father Colorectal cancer Aunt Cancer Colon Sister Breast cancer Mother Breast cancer Heart disease Grandmother Diabetes Past Surgical History Surgical History Family history of reaction to anesthesia daughter>"difficult sedating" H/O vascular surgery iliac artery stenting 2013 x2; iliac artery stenting 10/2024 [facility] x2 History of bronchoscopy History of colon resection (1996) 10/25 colon cancer History of colonoscopy (1996) History of tooth extraction Social History Smoking Status: Former smoker Do You Dip or Chew Tobacco: No Smoking End Date: 4 mos ago Hx Alcohol Use: Yes Alcohol type: wine alcohol intake frequency: holidays/special occasions only Hx Substance Use: No substance use type: does not use Lab Results Anesthesia Preop Results Results Anesthesia Widget: WBC 26.92 K/ul (4.8-10.8) H 04/26/25 Hgb 13.1 g/dl (14.0-18.0) L 04/26/25 Hct 37.7 % (42.0-52.0) L 04/26/25 Plt 314 K/uL (130-400) 04/26/25 Na 136 mmol/L (136-145) 04/27/25 K 4.5 mmol/L (3.5-5.1) 04/27/25 Cl 104 mmol/L (98-107) 04/27/25 CO2 26 mmol/L (21-32) 04/27/25 BUN 25 mg/dl (6-23) H 04/27/25 Creat 0.94 mg/dl (0.6-1.4) 04/27/25 Glucose Level 153 mg/dl (70-99(Fasting)) H 04/27/25 POC Glucose 147 mg/dl (70-99) H 04/26/25 PT 10.7 Seconds (9.0-12.0) 03/31/25 PTT 22 Seconds (21-31) 03/31/25 INR 1.0 (0.9-1.1) 03/31/25 Urine Color Yellow 04/26/25 Urine Appearance Clear (Clear) 04/26/25 Urine pH 5.0 (4.5-7.5) 04/26/25 Urine Specific [place] 1.012 (1.000-1.030) 04/26/25 Urine Protein Negative (Negative) 04/26/25 Urine Glucose (UA) Negative (Negative) 04/26/25 Urine Ketones Negative (Negative) 04/26/25 Urine Blood Trace (Negative) H 04/26/25 Urine Nitrite Negative (Negative) 04/26/25 Urine Bilirubin Negative (Negative) 04/26/25 Urine Urobilinogen Negative (Negative) 04/26/25 Urine Leukocyte Esterase 1+ (Negative) H 04/26/25 Urine WBC (Auto) 6-10 /hpf (0-5) H 04/26/25 Urine RBC (Auto) 0-2 /hpf (0-2) 04/26/25 Urine Hyaline Casts (Auto) 0-2 /lpf (0-2) 04/26/25 Urine Epithelial Cells (Auto) 0-2 /hpf (0-2) 04/26/25 Urine Bacteria (Auto) None Seen (None Seen) 04/26/25 Coronavirus OC43 (PCR) Not Detected (NotDetected) 04/26/25 Coronavirus HKU1 (PCR) Not Detected (NotDetected) 04/26/25 Coronavirus 229E (PCR) Not Detected (NotDetected) 04/26/25 COVID-19 PCR Not Detected (NotDetected) 04/26/25 Coronavirus NL63 (PCR) Not Detected (NotDetected) 04/26/25 Testing Electrocardiogram Date: 04/26/25 Sinus tachycardia, atrial flutter cannot be excluded RBBB Chest X-Ray Date: 04/26/25 *1 view* 1. Findings of emphysema and a large left upper lobe lung mass are similar to previous. 2. There is no airspace consolidation typical for pneumonia. 3. Small left pleural effusion. Other Testing Brain MRI 04/26/25 Numerous enhancing lesions throughout of the cerebellum, as above, compatible with metastatic disease. No associated herniation. A smaller lesion about the falx, is seen and is more indeterminant, and there is no associated reactive edema. This may represent a meningioma, however with a metastasis difficult to entirely exclude. Correlation with prior imaging if available would be helpful. Abdomen pelvis CT 04/26/25 1. No acute infectious or inflammatory findings are identified in the abdomen or pelvis. 2. A right adrenal metastasis is unchanged. 3. Small left and trace right pleural effusions. 4. There are numerous small bibasilar pulmonary nodules which measure up to 4 mm. These are pathologically indeterminate and metastatic lesions are not excluded. Attention at follow-up will be required. 5. Trace pelvic ascites. 6. Right-sided nephrolithiasis. 7. Bladder distention. 8. Additional findings as above. Head CT 04/26/25 1. Persistent cerebellar masses with associated edema consistent with the patient's known metastasis. 2. Persistent 1 cm right parafalcine nodule likely representing an incidental meningioma 3. Minimal mass effect on the fourth ventricle, but no current evidence of significant hydrocephalus. 4. No evidence of acute hemorrhage PET scan 04/22/25 1. Markedly FDG avid 2.5 x 7.2 x 5.3 cm left upper lobe mass consistent with primary lung malignancy. 2. Left supraclavicular, left hilar and mediastinal conrado metastases. Cerebellar, skeletal, right adrenal and small pulmonary metastases, as described above. 3. Small left pleural effusion.
[~2025-05-26 13:13] MED LIST: DEXAMETHASONE SOD INJ 4 MG/ML VIAL ONE; GLYCOPYRROLATE 0.2 MG/ML VIAL ONE; LIDOCAINE 2% 2 ML VIAL/AMP(20MG/ML) INFIL ONE; ONDANSETRON INJ 2 MG/ML 2 ML VIAL ONE; PROPOFOL IV EMULSION 10 MG/ML 20 ML VIAL IV ONE
--- NOTE | 2025-05-26 13:19 | History & Physical Bridge Note ---
Date of Service May 26, 2025 History & Physical Bridge Note I have examined the patient, reviewed the History & Physical and in the interval since the performance of the History & Physical I have noted the following changes of clinical significance: no changes noted
[2025-05-26 13:32] LABS: Hematocrit (blood only) 34.3 % (42.0-52.0); Hemoglobin 11.7 g/dl (14.0-18.0); Mean Corpuscular Hemoglobin 36.1 pg (25.0-34.0); Mean Corpuscular Volume 105.9 fL (80.0-100.0); Platelet Count 196 K/uL (130-400); RDW Standard Deviation 61.7 fL (36.4-46.3); Red Blood Count 3.24 M/uL (4.70-6.10); White Blood Count 28.06 K/ul (4.8-10.8)
[2025-05-26 13:50] LABS: Immature Granulocytes # (auto) 0.46 K/uL (0.01-0.20); Immature Granulocytes % (auto) 1.6 %
[2025-05-26] MEDS: LR 15ML/HR IV SCH (13:52)
[2025-05-26] MEDS ORDERED: ONDANSETRON INJ 2 MG/ML 2 ML VIAL IV PRN ×2 (14:29→15:19)
[2025-05-26] MEDS ORDERED: ATROPINE SULFATE 0.1 MG/ML 10ML SYR IV PRN (14:29)
[2025-05-26] MEDS ORDERED: PROPOFOL IV EMULSION 10 MG/ML 20 ML VIAL IV ONE (14:37)
[2025-05-26] MEDS ORDERED: MIDAZOLAM HCL 1 MG/ML 2ML VIAL ONE (14:46)
[2025-05-26] MEDS ORDERED: ESMOLOL HCL INJ 10 MG/ML 10ML VIAL IV ONE (15:08)
[2025-05-26] MEDS: BUPIVACAINE 0.5 % 5 MG/1 ML MPF 30ML VIAL ONE (15:14)
[2025-05-26] MEDS: LIDOCAINE 1%/EPINEPHRINE 1:100,000 50 ML VIAL ONE (15:15)
[2025-05-26] MEDS: HEPARIN 100 UNIT/ML 5ML FLUSH ONE (15:15)
[2025-05-26] MEDS ORDERED: KETOROLAC TROMETHAMINE 15 MG/ML VIAL IV PRN (15:19)
--- NOTE | 2025-05-26 15:19 | Operative Report ---
PG Post Operative Report Pre & Post Diagnosis Operation Date: 05/26/25 14:40 Pre-Op Diagnosis: Adenocarcinoma of Lung Post-Op Diagnosis: Adenocarcinoma of Lung I identified the patient and participated in the time-out.: Yes Procedure Operation Date: 05/26/25 14:40 Actual Procedures p Insertion of Access Port Via Right Internal Jugular(Right) - Amandeep pena DO, FACS Surgeon Amandeep Jauregui DO, VIKTORIA Double Surface Operator Sarah Guadarrama Estimated Blood Loss 5 Findings Consistent with Post-Op Diagnosis Right internal jugular vein access using real-time ultrasound guidance. Port placed to cavoatrial junction using fluoroscopy. Port draws and flushes easily conclusion of case. Specimens None Anesthesia Type MAC Complications none Disposition Accompanied Patient To Recovery: No Disposition: Recovery Room Indications 79-year-old male with metastatic lung cancer to the brain with need for long- term IV access for chemotherapy. Plan for port placement. The risks of the procedure were discussed, all questions were answered, and the patient agreed to proceed with surgery as planned. Description of Procedure The patient was properly identified, consented, and taken to the operating room where he was placed in the supine position with both arms tucked and a shoulder roll placed vertically. Monitored anesthesia care was induced. SCDs and a safety belt were placed. Preoperative antibiotics were administered. The patient's chest and neck was prepped and draped in the standard sterile fashion. Surgical timeout was performed and all parties were in agreement that this was the correct patient and procedure to be performed and we continued as planned. The patient was placed in Trendelenburg position. Local anesthetic was injected along the skin incision. Using real-time ultrasound guidance the right internal jugular vein was accessed using the access needle. The wire was placed and the needle was removed. Fluoroscopy confirmed placement into the internal jugular vein extending into the superior vena cava. A transverse skin incision was made in the right chest and a pocket was created for the port. A subcutaneous tunnel was created and the catheter was brought from the neck incision into the chest incision. The dilator and peel-away sheath were inserted over the wire. The catheter was then inserted through the peel-away sheath and fluoroscopy confirmed placement into the superior vena cava. The catheter was cut and attached to the port. The port was secured into place with 3-0 Prolene sutures. A final x-ray revealed good placement of the port. The wound was irrigated and hemostasis was confirmed. The skin was closed with interrupted 3-0 Vicryl deep dermal sutures, followed by 4-0 Monocryl running subcuticular suture. Dermabond was placed over the wound. The port was accessed and maira blood easily and flushed easily. It was flushed with heparinized saline. The patient taken to the PACU where he recovered without apparent incident. All sponge, instrument and needle counts were correct at the conclusion of the procedure. The patient tolerated the procedure well. The physician's under water assistant was present and scrubbed for the entirety of the case, and was essential in positioning the patient, prepping and draping, retraction and exposure, placement of the port, closure of the wounds, and placement of dressings. I attest to the content of the Intraoperative Record and any orders documented therein. Any exceptions are noted below.
--- NOTE | 2025-05-26 15:19 | Operative Report ---
PG Post Operative Report Pre & Post Diagnosis Operation Date: 05/26/25 14:40 Pre-Op Diagnosis: Adenocarcinoma of Lung Post-Op Diagnosis: Adenocarcinoma of Lung I identified the patient and participated in the time-out.: Yes Procedure Operation Date: 05/26/25 14:40 Actual Procedures p Insertion of Access Port Via Right Internal Jugular(Right) - Amandeep pena DO, FACS Surgeon Amandeep Jauregui DO, VIKTORIA Ultrasound Tech Sarah Guadarrama Estimated Blood Loss 5 Findings Consistent with Post-Op Diagnosis Specimens None Anesthesia Type MAC Complications none Disposition Accompanied Patient To Recovery: No Disposition: Recovery Room Description of Procedure Real-time ultrasound guidance was utilized and interpreted throughout the procedure by myself in order to access the right internal jugular vein. Fluoroscopy was utilized and interpreted by myself throughout the procedure in order to place the port. I attest to the content of the Intraoperative Record and any orders documented therein. Any exceptions are noted below.
--- NOTE | 2025-05-26 15:48 | Anesthesiology Progress Note ---
Date of Service May 26, 2025 Anesthesia Post Procedure Vital Signs Vital Signs: Temp Pulse Resp BP Pulse Ox O2 Del Method O2 Flow Rate 05/26/25 15:35 97 H 7 L 121/66 92 Room Air 05/26/25 15:26 36.3 C L 98 H 17 94/62 L 100 Oxymask 10 05/26/25 13:32 Room Air 05/26/25 13:24 86 24 134/73 94 Room Air Transfer of Care Handoff Completed per policy Notes Mental Status: alert / awake / arousable and participated in evaluation Patient Amnestic to Procedure: Yes Nausea / Vomiting: adequately controlled Pain: adequately controlled Airway Patency, RR, SpO2: stable & adequate BP & HR: stable & adequate Hydration State: stable & adequate Anesthetic Complications: no major complications apparent and Pt Satisfied with anesthetic care
--- NOTE | 2025-05-26 15:49 | XRay Report ---
XR chest 1V portable HISTORY: 79 years-old Male post op port placement status post placement of a right IJ Mihqjf-p-Umkl catheter COMPARISON: Chest radiograph 04/26/2025, PET CT 04/22/2025 TECHNIQUE: AP view of the chest FINDINGS: Emphysema with left upper lobe mass redemonstrated. Ill-defined interstitial and alveolar opacities i n the right midlung are new from prior. Pulmonary vascular congestion. No pneumothorax or pleural eff usion. Right IJ Iypgej-g-Pzmf catheter distal tip noted within the expected location of the mid SVC. IMPRESSION: 1. Status post placement of a right IJ Wdzexk-t-Lmfc catheter. No postprocedural pneumothorax. 2. Emphysema with pulmonary vascular congestion. 3. Interval development of ill-defined right mid lung opacities which may represent asymmetric pulmon ralph edema versus pneumonitis. 4. Large left upper lobe mass redemonstrated. ACT 112: Negative or not required by law. The above report was generated using voice recognition software. It may contain grammatical, syntax o r spelling errors. Electronically signed by: Carlos Brizuela M.D. 05/26/2025 3:47 PM
--- NOTE | 2025-05-26 19:43 | History & Physical Report ---
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 His evaluation is still pending, but he does re-demonstrate leukocytosis of 28.06 which has increased from prior, as well as H&H 11.7/34.3. Lactate elevated at 2.4, procal WNL. UA pending. #Weakness/Hypoxia S/p insertion of port in the RIJ. He was hypoxic in post-op, 86% at lowest. No neuro deficits. Suspect multifactorial in setting of metastatic carcinoma, recent surgical intervention, and possibly dehydration. Hypoxia ? in setting of opioid use. - CBC leukocytosis 28k, H/H 11.7/34.3; CMP Na 135, BUN 41, ratio 40, glucose 156; procal 0.46; lactate 2.4; PT/INR WNL; Ca 9.4; Mg 2.3; trop 11.6 - CBC, BMP am - Pain management -- requested Acetaminophen -- Acetaminophen prn fever/pain, morphine for severe pain - CXR s/p placement of R IJ Gbfxyj-k-Bgga catheter without pneumothorax, emphysema with pulmonary vascular congestion, interval development of ill- defined R midlung opacities may be edema versus pneumonitis, large RONIT mass re- demonstrated - EKG pending - Zofran prn N/V - Gentle IVF - O2 prn with goal 88-93% -- No O2 at baseline - PT/OT ordered - appreciate assistance - Gen sx consulted - appreciate ongoing input + recs regarding most recent RIJ port insertion - Consider head CT in am #S/p RIJ port insertion/Metastatic adenocarcinoma of lung/Cerebellar and adrenal gland metastasis Performed 05/26/2025, no apparent complications. No complaints per patient at this time. Lung CA dx 04/14/2025, with maria ines to brain and adrenal; previously complicated with cerebral edema. H/o COPD. Follows with heme/onc, radiation to brain then chemo to be started for lung CA; On dexamethasone po. - HOLD ASA and Plavix given post-op status - Gen surg input greatly appreciated #Leukocytosis In setting of known carcinoma, also on dexamethasone at baseline. Received Cefazolin pre-op. No clear source of infection at present time. - CBC leukocytosis 28.06, no neutropenia - CBC am - Lactate 2.4 (no AG; ? 2/2 carcinoma, ? underlying infection) procal 0.46 - CXR without pneumothorax, emphysema with pulmonary vascular congestion, ill- defined R midlung opacities (edema versus pneumonitis), large RONIT mass re- demonstrated #H/o stage IV colon CA- S/p chemo, radiation, and sx in 1996 #GERD- Pantoprazole - continue Dispo: Admit, med/tele -- initially placed as med/sx but given hypoxia and weakness, adjusted to med/tele VTE Prophylaxis: SCDs This document was dictated utilizing Victoria Plumb. Please excuse any grammatical errors that may be secondary to use of this software. 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 He notes that the symptoms that he has been experiencing have been ongoing since before his most recent hospitalization. States that he experiences lightheadedness, dizziness (mix of vertiginous and off balance), as well as fatigue. This seemed to have worsened after the surgery today and he does not feel like he can walk. He does admit that this feels similar to his last hospitalization but "not exactly." Unable to qualify further. He admits to chest pain that started the morning of arrival before his procedure, and he notes that it normally gets worse in the evenings. It starts in the R side of the chest and will radiate across the rest of the chest. Describes it as pressure and uncomfortable. No radiation elsewhere. Has been experiencing some SOB after procedure. He denies current palpitations, cough, abdominal pain, N/V/D/C, or numbness/tingling. Does feel weak and states "I cannot lift my legs because I feel weak." Evaluation reveals CBC with leukocytosis with 28.06, H&H 11.7/34.3; CMP Na 135, BUN 41, ratio 50, glucose 156, protein 5, albumin 2.5; lactate 2.4; Ca 9.4, Mg 2.3; procal 0.46; CXR s/p placement of R IJ Nsxdwy-x-Krdd catheter without pneumothorax, emphysema with pulmonary vascular congestion, interval development of ill-defined R midlung opacities may be edema versus pneumonitis, large RONIT mass re-demonstrated. Reevaluated patient at 2220- feeling better, and feels that he is stronger than before when we first met. Not complaining of dizziness or lightheadedness. No chest pain or SOB. Feels that his symptoms are at their baseline, and not worse than before. He is resting comfortable. Neuro exam remains stable. Please see Dr. Hilaroi's attestation for adjustments/additions to treatment plan. Allergies Allergy/AdvReac Type Severity Reaction Status Date / Time naproxen AdvReac Intermediate Headache Verified 05/26/25 13:25 Home Medications Medication Instructions Recorded Confirmed Type clopidogrel 75 mg tablet 75 mg PO DAILY 10/12/19 05/26/25 History aspirin 81 mg tablet 81 mg PO Q2D 03/24/25 05/26/25 History acetaminophen 300 mg-codeine 30 mg 1 tab PO Q6H PRN Pain 04/06/25 05/26/25 Hist ory tablet acetaminophen 500 mg capsule 1,000 mg PO QID PRN Pain 04/06/25 05/26/25 History cyanocobalamin (vitamin B-12) 1,000 mcg PO DAILY 04/06/25 05/26/25 History 1,000 mcg tablet cholecalciferol (vitamin D3) 25 5,000 unit PO DAILY 04/07/25 05/26/25 History mcg (1,000 unit) tablet oxycodone 5 mg tablet 5 mg PO .Q4-6H PRN Pain 04/26/25 05/26/25 History dexamethasone 4 mg tablet 4 mg PO TID #120 tabs 04/28/25 05/26/25 Rx pantoprazole 40 mg tablet,delayed 40 mg PO DAILY #30 tabs 04/28/25 05/26/25 Rx release Past Med/Surg History Problem List Leukocytosis Hypoxia Weakness Encounter for pre-operative examination Peripheral arterial disease Vertigo (Acute) Worsening headaches (Acute) Cerebellar metastasis (Acute) Hypertensive urgency Headache Cerebral edema Adenocarcinoma of lung 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 (Acute) Non-small cell lung cancer metastatic to bone (Acute) CN palsy, bilateral (Acute) Ataxia (Acute) Primary adenocarcinoma of upper lobe of left lung (Acute) Non-small cell lung cancer metastatic to brain (Acute) Nontraumatic cerebral edema (Acute) Hemochromatosis (Chronic) follows with [facility] heme and receives monthly phlebotomy tx; heterozygous for H63D mutation Multiple pulmonary nodules COPD with emphysema Lung mass 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, organic (Chronic) Medical History Shortness of breath with activity and flight of stairs GERD (gastroesophageal reflux disease) Vertigo gets dizzy with standing Hemochromatosis follows with [facility] heme and receives monthly phlebotomy tx; heterozygous for H63D mutation CN palsy, bilateral pt unaware PAD (peripheral artery disease) COPD with emphysema no inhalers, controlled per pt Lung cancer metastatic to brain reason for up coming port placement Cigarette smoker 60 pack yr hx Unintentional weight loss 11lb wt loss in past 3 months per 06/01/25 pulm note Hyperlipidemia Arthritis Vascular problem PVD: poor artery vascular flow from waste down from radiation secondary to colon cancer>reason for plavix; follows with vascular History of colon cancer surgery/radiation/chemo 1997 years ago Surgical History History of bronchoscopy Family history of reaction to anesthesia daughter>"difficult sedating" History of colonoscopy (1996) History of colon resection (1996) 2/ colon cancer History of tooth extraction H/O vascular surgery iliac artery stenting 2013 x2; iliac artery stenting 10/2024 [facility] Ethel x2 Family History Brother Prostate cancer Father Colorectal cancer Aunt Cancer Colon Sister Breast cancer Mother Breast cancer Heart disease Grandmother Diabetes Social History Smoking Status: Former smoker Tobacco Type: Cigarettes Age Started Using Tobacco: 16; Age Quit Using Tobacco: 79; packs per day: 1; Smoking End Date: 4 mos ago; Second Hand Exposure: No; Do You Dip or Chew Tobacco: No; Tobacco Cessation Education Requested by Patient: No Hx Alcohol Use: Yes Alcohol type: wine Alcohol type Comment: daily Alcohol Intake Frequency: 4 or More x per/Week Hx Substance Use: No Preferred Language: Lithuanian Communication Ability: Effective 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 Beliefs That Will Affect Care: None marital status: Current Living Situation: Spouse current occupational status: retired How many Children do You have: 2 Other Information That Helps Us Care for You: No Feels Safe at Home: Yes Safety Concerns: Feels Safe At This Time Diet: regular during the past year weight has: decreased > 10 lbs Assistive Devices: Glasses Review of Systems Review of Systems: All systems reviewed & are unremarkable except as noted in Subjective Physical Exam Physical Exam: General: No acute distress, under warming blanket Skin: Warm and dry Head: Normocephalic, atraumatic Eyes: PERRL, conjunctivae clear, sclera non-icteric ENT: External ear and ear canal without swelling; nose atraumatic; good dentition, tongue normal appearance, pharynx normal Neck: Supple, no LAD Cardio/Chest: Recent surgical site R chest; RRR, no M/G/R, S1 and S2 normal Resp: No respiratory distress, slightly diminished lung sounds throughout; Lungs CTA in all lobes bilaterally, no wheezes, rales, or rhonchi Abdomen: Soft, symmetric, nontender; No masses or hepatosplenomegaly; Bowel sounds normoactive MSK: No deformities; pulses palpable and equal; no edema. Neuro: Awake, alert; Sensation intact bilaterally; CN grossly intact - 3/5 strength BLE, 4/5 strength BUE, normal sensation Psych: Appropriate mood and affect; good judgement and insight. Results & Data Results & Data Vital Signs (Past 12 Hours) Vital Signs Temp Pulse Resp BP Pulse Ox O2 Del Method O2 Flow Rate 05/26/25 18:52 80 20 115/62 98 Nasal Cannula 1 05/26/25 17:52 79 18 124/65 97 Nasal Cannula 1 05/26/25 16:52 92 H 16 135/71 97 Room Air 05/26/25 16:22 94 H 18 133/68 94 Nasal Cannula 1 05/26/25 15:52 36.4 C L 94 H 18 127/91 95 Nasal Cannula 1 05/26/25 15:45 36.4 C L 96 H 12 144/71 H 97 Room Air 05/26/25 15:35 97 H 7 L 121/66 92 Room Air 05/26/25 15:26 36.3 C L 98 H 17 94/62 L 100 Oxymask 10 05/26/25 13:32 Room Air 05/26/25 13:24 86 24 134/73 94 Room Air Laboratory Results 05/26/25 13:14 WBC 28.06 H RBC 3.24 L Hgb 11.7 L Hct 34.3 L MCV 105.9 H MCH 36.1 H MCHC 34.1 RDW Std Deviation 61.7 H RDW Coeff of Annamarie 15.8 H Plt Count 196 MPV 10.5 Immature Gran % (Auto) 1.6 Neut % (Auto) 93.3 Lymph % (Auto) 1.6 [place] % (Auto) 3.3 Eos % (Auto) 0.0 Baso % (Auto) 0.2 Neut # (Auto) 26.19 H Lymph # (Auto) 0.44 L [place] # (Auto) 0.92 H Eos # (Auto) 0.00 Baso # (Auto) 0.05 Immature Gran # (Auto) 0.46 H Absolute Nucleated RBC 0.06 Nucleated RBC % (auto) 0.2 Diagnostic Findings Chest X-Ray 05/26/25 15:20 XR chest 1V portable HISTORY: 79 years-old Male post op port placement status post placement of a right IJ Thkoys-u-Kqki catheter COMPARISON: Chest radiograph 04/26/2025, PET CT 04/22/2025 TECHNIQUE: AP view of the chest FINDINGS: Emphysema with left upper lobe mass redemonstrated. Ill-defined interstitial and alveolar opacities in the right midlung are new from prior. Pulmonary vascular congestion. No pneumothorax or pleural effusion. Right IJ Atjwdx-h-Azfv catheter distal tip noted within the expected location of the mid SVC. IMPRESSION: 1. Status post placement of a right IJ Ndmgiy-z-Smno catheter. No postprocedural pneumothorax. 2. Emphysema with pulmonary vascular congestion. 3. Interval development of ill-defined right mid lung opacities which may represent asymmetric pulmonary edema versus pneumonitis. 4. Large left upper lobe mass redemonstrated. ACT 112: Negative or not required by law. The above report was generated using voice recognition software. It may contain grammatical, syntax or spelling errors. Electronically signed by: Carlos Brizuela M.D. 05/26/2025 3:47 PM Code Status & VTE Plan Code Status DNR/DNI VTE Prophylaxis Plan VTE Prophylaxis will be ordered: Yes Supervising Physician Co-Signing Physician Notes Patient seen and examined, chart reviewed, case discussed with SAMMY Vick and I agree with the assessment and plan as above. Patient s/p port placement for metastatic lung cancer being admitted for generalized weakness and hypoxia Patient frail and cachectic on exam MMM, Neck supple Port in right chest wall, no bleeding Labs and images reviewed Will provide gentle fluids, supplemental O2 PT/OT evaluation Remainder as above PG Care Time/CCT Total # of Minutes Spent Total Time Spent with Patient: Total time spent is greater than 50% in coordination of care (as documented) at patient's floor/unit and/or counseling patient: Coding Level of Care Code 47882 INT INP/OBS CARE 3/75MIN Diagnoses Weakness R53.1 Hypoxia R09.02 Leukocytosis D72.829
--- NOTE | 2025-05-26 20:04 | Communication Note ---
Date of Service: May 26, 2025 This is an 79-year-old male with an underlying history of metastatic lung cancer who underwent a surgical procedure today by Dr. Jauregui of [facility] physician with general surgery. Today Dr. Jauregui performed insertion of a right internal jugular a port. The procedure was planned on an outpatient basis and the ultimate plan was for patient to be discharged home following the procedure however we are notified by nursing staff that patient had desaturations with even minimal activity and appeared somewhat short of breath with minimal activity following his procedure. Patient was evaluated by anesthesia in the recovery room and was felt the patient would likely require admission to the hospital. The patient did undergo a chest x-ray in the recovery room following his procedure. This x-ray was reviewed and there is no evidence of postprocedural pneumothorax. There are some pulmonary vascular congestion and concern for some right midlung opacities felt to potentially represent pulmonary edema or pneumonitis. Patient was also noted to have a left upper lobe mass. I visited with the patient at the bedside at the present time he says he is feeling somewhat fatigued but overall feels okay. He says he is not short of breath at rest. He says he does not have any chest pain. I did discuss with the patient that due to the concerns noted immediately following his procedure by anesthesia nursing staff that we felt to be at the patient's best interest be admitted to the hospital. He is in agreement with this On physical exam the patient is noted to be hemodynamically stable with a blood pressure of 123/74 and a pulse of 84. His respirations are 22 and nonlabored and he is afebrile. His pulse ox is 97% on 2 L. Patient's neck and chest wall were examined. Is a port incision is clean, dry, and intact with surgical glue. There is no ecchymosis or evidence of expanding hematoma in his neck or at a port insertion site. His lungs are overall clear to auscultation with slight decreased at the bases. There is no wheezing. The patient's abdomen is soft without distention or tenderness to palpation. The patient has no calf tenderness on exam. I did contact the hospitalist service but not any physician group and spoke with Dr. Hilario and have requested that they admit the patient to the hospital for further care and she is in agreement with this. Please refer to the hospitalist notations and orders for further plan.
[2025-05-26 21:22] LABS: Alanine Aminotransferase 36.0 U/L (7-52); Albumin Globulin Ratio 1.0 (0.9-2); Alkaline Phosphatase 101.0 U/L (34-104); Anion Gap 7.0 (3-11); Bilirubin,Total 0.6 mg/dl (0.2-1.0); Blood Urea Nitrogen 41.0 mg/dl (6-23); Calcium 9.4 mg/dl (8.6-10.3); Carbon Dioxide 24.0 mmol/L (21-32); Chloride 104.0 mmol/L (98-107); Creatinine Clr Calc Pharmacy 56.5 ml/min; Globulin 2.5 gm/dl (2.5-4.0); Glucose 156.0 mg/dl (70-99(Fasting)); Magnesium 2.3 mg/dl (1.7-2.4); Potassium 4.4 mmol/L (3.5-5.1); Sodium 135.0 mmol/L (136-145); Total Protein 5.0 gm/dl (6.0-8.3)
[2025-05-26] MEDS: SODIUM CHLORIDE 0.9% 1,000 ML IV SCH (21:37)
[2025-05-26 21:38] LABS: INR 1.0 (0.9-1.1); Prothrombin Time 10.5 Seconds (9.0-12.0)
[2025-05-27 07:55] LABS: Hematocrit (blood only) 32.4 % (42.0-52.0); Hemoglobin 11.1 g/dl (14.0-18.0); Mean Corpuscular Hemoglobin 36.8 pg (25.0-34.0); Mean Corpuscular Volume 107.3 fL (80.0-100.0); Platelet Count 174 K/uL (130-400); RDW Standard Deviation 61.5 fL (36.4-46.3); Red Blood Count 3.02 M/uL (4.70-6.10); White Blood Count 26.78 K/ul (4.8-10.8)
[2025-05-27 08:10] LABS: Anion Gap 5.0 (3-11); Blood Urea Nitrogen 40.0 mg/dl (6-23); Calcium 9.5 mg/dl (8.6-10.3); Carbon Dioxide 27.0 mmol/L (21-32); Chloride 105.0 mmol/L (98-107); Creatinine Clr Calc Pharmacy 55.1 ml/min; Glucose 113.0 mg/dl (70-99(Fasting)); Potassium 4.1 mmol/L (3.5-5.1); Sodium 137.0 mmol/L (136-145)
--- NOTE | 2025-05-27 11:22 | Hospitalist Progress Note ---
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 His evaluation is still pending, but he does re-demonstrate leukocytosis of 28.06 which has increased from prior, as well as H&H 11.7/34.3. Lactate elevated at 2.4, procal WNL. UA pending. #Weakness/Hypoxia S/p insertion of port in the RIJ. He was hypoxic in post-op, 86% at lowest. No neuro deficits. Suspect multifactorial in setting of metastatic carcinoma, recent surgical intervention, and possibly dehydration. Hypoxia ? in setting of opioid use. - CBC leukocytosis 28k, H/H 11.7/34.3; CMP Na 135, BUN 41, ratio 40, glucose 156; procal 0.46; lactate 2.4; PT/INR WNL; Ca 9.4; Mg 2.3; trop 11.6 - CBC, BMP am - Pain management -- requested Acetaminophen -- Acetaminophen prn fever/pain, morphine for severe pain - CXR s/p placement of R IJ [id number]-u-[id number] catheter without pneumothorax, emphysema with pulmonary vascular congestion, interval development of ill- defined R midlung opacities may be edema versus pneumonitis, large RONIT mass re- demonstrated - EKG pending - Zofran prn N/V - Gentle IVF - O2 prn with goal 88-93% -- No O2 at baseline - PT/OT ordered - appreciate assistance - Gen sx consulted - appreciate ongoing input + recs regarding most recent RIJ port insertion - Head Ct normal. - Continue Rocephin and doxycycline. 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 No complaints per patient at this time. Lung CA dx 04/14/2025, with maria ines to brain and adrenal; previously complicated with cerebral edema. H/o COPD. Follows with heme/onc, radiation to brain then chemo to be started for lung CA; On dexamethasone po. - Gen surg input greatly appreciated #Leukocytosis In setting of known carcinoma, also on dexamethasone at baseline. Received Cefazolin pre-op. No clear source of infection at present time. - CBC leukocytosis 28.06, no neutropenia - CBC am - Lactate 2.4 (no AG; ? 2/2 carcinoma, ? underlying infection) procal 0.46 - CXR without pneumothorax, emphysema with pulmonary vascular congestion, ill- defined R midlung opacities (edema versus pneumonitis), large RONIT mass re- demonstrated #H/o stage IV colon CA- S/p chemo, radiation, and sx in 1996 #GERD- Pantoprazole - continue Dispo: Admit, med/tele -- initially placed as med/sx but given hypoxia and weakness, adjusted to med/tele VTE Prophylaxis: SCDs Admission and Anticipated Discharge Date Admission Date: May 26, 2025 Supervising Physician Co-Signing Physician Notes ATTESTATION I also saw the patient and confirmed mueller portions of the history and exam. I agree with the impression and plan in the resident documentation, and as summarized below. Seen this morning. Lying semi reclined in bed. He has just returned from the bathroom and sounds as if it was very difficult for him. Complains of being tired. EXAM 114/69, 96, 18, 36.7 Membranes dry Alert and oriented. NAD. CV regular Lungs diminished bases B/L DATA Labs WBC 26.78, HgB 11.1, plt 174 Sodium 137, Potassium 4.1, BUN 40, Cr 0.84 Lactate 1.6 IMPRESSION & PLAN Weakness, Hypoxia Metastatic adenocarcinoma of the lung (brain) Leukocytosis in the setting of steroids H/O whole Brain RT (3000cGy/10 fractions) Clinically he appears dry this morning. CXR from yesterday questionable, may be mildly wet; lung exam decreased bases; decreased air movement secondary to decreased effort. Weakness/fatigue multifactorial - malignancy + treatment, including whole brain radiation No focal s/s infection Repeat CXR today looks more consistent with infiltrate Add rocephin and doxycycline PT/OT evaluation Supplemental O2 Patient's family requests pulmonary consult (known to service/outpatient appointment tomorrow) Additional per resident documentation Subjective patient reports + shortness of breath. he is eating in bed sitting up without issues. no problem with port, but a little tender if pressed upon Review of Systems Review of Systems: All systems reviewed & are unremarkable except as noted in Subjective Physical Exam Physical Exam: awake, alert, no distress Respiratory: on supplemental O2, appears in no respiratory distress Skin: port incision c/d/i with dermabond, no signs of infection Results & Data Results & Data Vital Signs (Past 12 Hours) Vital Signs Temp Pulse Resp BP Pulse Ox O2 Del Method O2 Flow Rate 05/27/25 06:59 36.4 C L 91 H 16 151/78 H 95 Nasal Cannula 2 05/27/25 04:20 36.6 C 87 18 133/72 95 Room Air 05/26/25 23:54 36.4 C L 86 18 169/76 H 94 Nasal Cannula 2 Resident Activity Tracking Resident Involvement: Resident Care Provided Care Provided: Adult Hospital Medicine
--- NOTE | 2025-05-27 12:08 | CT Scan Report ---
CT SCAN OF THE BRAIN WITHOUT IV CONTRAST CLINICAL HISTORY: Weakness COMPARISON STUDY: CT scan dated 05/27/2025, MRI the brain dated 04/02/2025 TECHNIQUE: Unenhanced axial CT scan of the brain was performed from the vertex to the skull base. A dose lowering technique was utilized adhering to the principles of ALARA. CT DOSE: 703.85 mGy.cm FINDINGS: There is no CT evidence of acute cortical infarction. There is no hydrocephalus. There is no evidence of acute intracranial hemorrhage. There are patchy white matter hypodensities, likely on a small vessel basis. There is a 15 mm hypodensity within the right cerebral hemisphere just beneath tentorium. This appear s smaller than on the prior CT scan, and likely represents residual edema status post treatment of ce rebellar metastatic disease. There is a stable hyperdense 8 mm nodule within the right superior paraf alcine region. IMPRESSION: 1. Interval decrease in the size of the previously described right cerebellar mass with surrounding e blaise. Resolution of the mass effect on the brainstem and fourth ventricle. 2. No evidence of acute hemorrhage. No evidence of hydrocephalus. ACT 112: Negative or not required by law. Electronically signed by: Antonio Lyons M.D. 05/27/2025 12:07 PM
--- NOTE | 2025-05-27 12:18 | Surgery Progress Note ---
Date of Service May 27, 2025 Assessment & Plan (1) Hypoxia: Plan: patient is s/p mediport placement yesterday in the OR with dr. park, in PACU hypoxic and weak requiring admission port incisions are all c/d/i with dermabond, no signs of infection remains on supplemental O2, CXR showing no pneumothorax with possible progressive pneumonia pulmonary team has been consulted. we appreciate the hospitalists assistance with management of patient we will follow in the peripherally, if any surgical concerns arise please call with any questions/concerns f/u with dr. park in 2 weeks Admission and Anticipated Discharge Date Admission Date: May 26, 2025 Supervising Physician Co-Signing Physician Notes I have seen and examined this patient. No PTX, pt with developing PNA under the care of the hospitalist and his credit control officer. Surgery will sign off at this time. Subjective patient reports + shortness of breath. he is eating in bed sitting up without issues. no problem with port, but a little tender if pressed upon Physical Exam Physical Exam: awake, alert, no distress Respiratory: on supplemental O2, appears in no respiratory distress Skin: port incision c/d/i with dermabond, no signs of infection Results & Data Vital Signs (Past 12 Hours) Vital Signs Temp Pulse Resp BP Pulse Ox Pulse Ox Pulse Ox 05/27/25 11:45 98.1 F 96 H 18 114/69 99 05/27/25 11:43 91 85 L 05/27/25 06:59 97.5 F L 91 H 16 151/78 H 95 05/27/25 04:20 97.9 F 87 18 133/72 95 O2 Del Method O2 Flow Rate O2 Flow Rate O2 Flow Rate 05/27/25 11:45 Room Air 05/27/25 11:43 3 0 05/27/25 06:59 Nasal Cannula 2 05/27/25 04:20 Room Air PG Care Time/CCT Total # of Minutes Spent Total Time Spent with Patient: Total time spent is greater than 50% in coordination of care (as documented) at patient's floor/unit and/or counseling patient: Coding Level of Care Code 49315 Post Operative Follow-Up Diagnoses Hypoxia R09.02
--- NOTE | 2025-05-27 12:38 | Electrocardiogram Report ---
Test Reason : Blood Pressure : */* mmHG Vent. Rate : 83 BPM Atrial Rate : 83 BPM P-R Int : 148 ms QRS Dur : 132 ms QT Int : 406 ms P-R-T Axes : -13 72 35 degrees QTcB Int : 477 ms Normal sinus rhythm Right bundle branch block Abnormal ECG When compared with ECG of 26-Apr-2025 10:26, Vent. rate has decreased by 52 bpm Confirmed by Con Saunders ([id number]) on 05/27/2025 12:38:11 PM Referred By: Amandeep Jauregui Confirmed By: Con Saunders
[2025-05-27] MEDS ORDERED: Nursing to Pharmacy Communication SCH (13:45)
--- NOTE | 2025-05-27 14:44 | XRay Report ---
XR chest 1V portable CLINICAL HISTORY: O2 requirement COMPARISON STUDY: 05/26/2025 FINDINGS: The heart is normal in size. A right-sided A-Port catheter is visualized. There are progres sive airspace opacities within the right mid to upper lung zone suggestive of a progressive pneumonia . There is a persistent 12 cm left upper lobe mass. There is mild elevation of interstitium suggestin g mild pulmonary vascular congestion. There are no significant pleural effusions. There is no pneumot horax. IMPRESSION: 1. Redemonstration of a 12 cm left upper lobe pulmonary mass 2. Progressive airspace opacities within the right mid to upper lung zone, likely representing a pro gressive pneumonia. 3. Mild elevation of the interstitium suggesting mild pulmonary vascular congestion ACT 112: Negative or not required by law. Electronically signed by: Antonio Lyons M.D. 05/27/2025 2:43 PM
[2025-05-27] MEDS: cefTRIAXone SODIUM 1,000 MG/50 ML BAG IV SCH (17:45)
[2025-05-27] MEDS: DOXYCYCLINE HYCLATE 100 MG in DEXTROSE 5% MINI-B 100 ML IV SCH (17:46)
[2025-05-27 18:53] LABS: Appearance Urine Clear (Clear); Bacteria Urine Automated None Seen (None Seen); Cast Urine Automated 0-2 /lpf (0-2); Epithelial Cell Urine Auto 0-2 /hpf (0-2); Glucose Urine UA Negative (Negative); RBC Urine Automated 0-2 /hpf (0-2); WBC Urine Automated 0-5 /hpf (0-5)
[2025-05-27] MEDS: ENOXAPARIN INJ 40 MG/0.4 ML SYR SQ SCH (20:05)
[2025-05-28 08:48] LABS: Hematocrit (blood only) 32.3 % (42.0-52.0); Hemoglobin 10.9 g/dl (14.0-18.0); Immature Granulocytes # (auto) 0.27 K/uL (0.01-0.20); Immature Granulocytes % (auto) 1.2 %; Mean Corpuscular Hemoglobin 36.1 pg (25.0-34.0); Mean Corpuscular Volume 107.0 fL (80.0-100.0); Platelet Count 149 K/uL (130-400); RDW Standard Deviation 60.7 fL (36.4-46.3); Red Blood Count 3.02 M/uL (4.70-6.10); White Blood Count 22.67 K/ul (4.8-10.8)
[2025-05-28 08:56] LABS: Anion Gap 4.0 (3-11); Bilirubin,Total 0.7 mg/dl (0.2-1.0); Calcium 9.7 mg/dl (8.6-10.3); Carbon Dioxide 25.0 mmol/L (21-32); Chloride 103.0 mmol/L (98-107); Potassium 4.4 mmol/L (3.5-5.1); Sodium 132.0 mmol/L (136-145)
[2025-05-28 09:02] LABS: Alanine Aminotransferase 49.0 U/L (7-52); Albumin Globulin Ratio 1.0 (0.9-2); Alkaline Phosphatase 120.0 U/L (34-104); Blood Urea Nitrogen 35.0 mg/dl (6-23); Creatinine Clr Calc Pharmacy 65.6 ml/min; Globulin 2.5 gm/dl (2.5-4.0); Total Protein 5.1 gm/dl (6.0-8.3)
--- NOTE | 2025-05-28 10:22 | Hospitalist Progress Note ---
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 His evaluation is still pending, but he does re-demonstrate leukocytosis of 28.06 which has increased from prior, as well as H&H 11.7/34.3. Lactate elevated at 2.4, procal WNL. #Weakness/Hypoxia S/p insertion of port in the RIJ. He was hypoxic in post-op, 86% at lowest. No neuro deficits. Suspect multifactorial in setting of metastatic carcinoma, recent surgical intervention, and possibly dehydration. Hypoxia ? in setting of opioid use. - CBC leukocytosis 28k, H/H 11.7/34.3; CMP Na 135, BUN 41, ratio 40, glucose 156; procal 0.46; lactate 2.4; PT/INR WNL; Ca 9.4; Mg 2.3; trop 11.6 - CBC, BMP am - Pain management -- requested Acetaminophen -- Acetaminophen prn fever/pain, morphine for severe pain - CXR s/p placement of R IJ Ucrcyg-r-Wihm catheter without pneumothorax, emphysema with pulmonary vascular congestion, interval development of ill- defined R midlung opacities may be edema versus pneumonitis, large RONIT mass re- demonstrated - EKG pending - Zofran prn N/V - Gentle IVF - O2 prn with goal 88-93% -- No O2 at baseline - PT/OT ordered - appreciate assistance - Gen sx consulted - appreciate ongoing input + recs regarding most recent RIJ port insertion - Head Ct normal. - Continue Rocephin and doxycycline. - Plan to talk to his family about the further care. 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 No complaints per patient at this time. Lung CA dx 04/14/2025, with maria ines to brain and adrenal; previously complicated with cerebral edema. H/o COPD. Follows with heme/onc, radiation to brain then chemo to be started for lung CA; On dexamethasone po. - Gen surg saw him. #Leukocytosis In setting of known carcinoma, also on dexamethasone at baseline. Received Cefazolin pre-op. No clear source of infection at present time. - CBC leukocytosis 28.06, no neutropenia - CBC am - Lactate 2.4 (no AG; ? 2/2 carcinoma, ? underlying infection) procal 0.46 - CXR without pneumothorax, emphysema with pulmonary vascular congestion, ill- defined R midlung opacities (edema versus pneumonitis), large RONIT mass re- demonstrated #H/o stage IV colon CA- S/p chemo, radiation, and sx in 1996 #GERD- Pantoprazole - continue Dispo: Admit, med/tele -- initially placed as med/sx but given hypoxia and weakness, adjusted to med/tele VTE Prophylaxis: SCDs Admission and Anticipated Discharge Date Admission Date: May 26, 2025 Supervising Physician Co-Signing Physician Notes I personally examined the patient and verified mueller points of history and exam, discussed case, and agree with decision making and plan documented by Dr. Vail. Patient is a 79-year-old male with pertinent past medical history of metastatic adenocarcinoma of the lung presenting with hypoxia and weakness. IV doxycycline and ceftriaxone initiated for pneumonia. Patient remains on 4 L, he does not have supplemental oxygen at home. Patient performed poorly with physical therapy and was declining services today due to profound fatigue. He did not sleep well last night. Will attempt discussion of goals of care tomorrow. Subjective patient reports + shortness of breath, On nasal cannula 3-4L. he is eating in bed sitting up without issues. no problem with port, but a little tender if pressed upon Review of Systems Review of Systems: All systems reviewed & are unremarkable except as noted in Subjective Physical Exam Physical Exam: awake, alert, no distress Respiratory: on supplemental O2, appears in no respiratory distress Skin: port incision c/d/i with dermabond, no signs of infection Results & Data Results & Data Vital Signs (Past 12 Hours) Vital Signs Temp Pulse Resp BP Pulse Ox O2 Del Method O2 Flow Rate 05/28/25 07:06 36.6 C 95 H 18 149/74 H 93 Nasal Cannula 4 05/27/25 23:09 36.6 C 89 20 127/70 98 Room Air Resident Activity Tracking Resident Involvement: Resident Care Provided Care Provided: Adult Hospital Medicine
[2025-05-28] MEDS: ACETAMINOPHEN 500 MG TAB PO PRN (15:19)
[2025-05-28] MEDS: LORazepam 0.5 MG TAB PO PRN (20:28)
[2025-05-29 07:00] LABS: Hematocrit (blood only) 27.4 % (42.0-52.0); Hemoglobin 9.6 g/dl (14.0-18.0); Mean Corpuscular Hemoglobin 36.4 pg (25.0-34.0); Mean Corpuscular Volume 103.8 fL (80.0-100.0); Platelet Count 140 K/uL (130-400); RDW Standard Deviation 55.8 fL (36.4-46.3); Red Blood Count 2.64 M/uL (4.70-6.10); White Blood Count 24.93 K/ul (4.8-10.8)
[2025-05-29 07:16] LABS: Alanine Aminotransferase 36.0 U/L (7-52); Albumin Globulin Ratio 1.0 (0.9-2); Alkaline Phosphatase 99.0 U/L (34-104); Anion Gap 5.0 (3-11); Bilirubin,Total 0.5 mg/dl (0.2-1.0); Blood Urea Nitrogen 29.0 mg/dl (6-23); Calcium 9.8 mg/dl (8.6-10.3); Carbon Dioxide 25.0 mmol/L (21-32); Chloride 103.0 mmol/L (98-107); Creatinine Clr Calc Pharmacy 64.7 ml/min; Globulin 2.3 gm/dl (2.5-4.0); Potassium 4.1 mmol/L (3.5-5.1); Sodium 133.0 mmol/L (136-145); Total Protein 4.6 gm/dl (6.0-8.3)
[2025-05-29 07:20] LABS: Immature Granulocytes # (auto) 0.37 K/uL (0.01-0.20); Immature Granulocytes % (auto) 1.5 %
--- NOTE | 2025-05-29 11:54 | XRay Report ---
XR chest 1V portable CLINICAL HISTORY: Chest pain. COMPARISON STUDY: Chest radiograph May 27, 2025. PET/CT April 22, 2025. FINDINGS: Right internal jugular central line remains in place. Large left upper lobe mass is again n oted. There is no pneumothorax or pleural effusion. Diffuse interstitial thickening and patchy right mid to upper lung airspace opacities have progressed. A left fifth rib lytic lesion is again noted. C ardiomediastinal silhouette is stable. IMPRESSION: 1. Demonstration of the left upper lobe mass. 2. Increase in interstitial thickening suggestive of pulmonary edema. 3. Patchy right lung opacities which could represent pneumonia, alveolar pulmonary edema or treatment related pneumonitis. ACT 112: Negative or not required by law. Electronically signed by: Aureliano Caldera M.D. 05/29/2025 11:53 AM
--- NOTE | 2025-05-29 14:04 | Hospitalist Progress Note ---
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 His evaluation is still pending, but he does re-demonstrate leukocytosis of 28.06 which has increased from prior, as well as H&H 11.7/34.3. Lactate elevated at 2.4, procal WNL. #Weakness/Hypoxia S/p insertion of port in the RIJ. He was hypoxic in post-op, 86% at lowest. No neuro deficits. Suspect multifactorial in setting of metastatic carcinoma, recent surgical intervention, and possibly dehydration. Hypoxia ? in setting of opioid use. - CBC leukocytosis 28k, H/H 11.7/34.3; CMP Na 135, BUN 41, ratio 40, glucose 156; procal 0.46; lactate 2.4; PT/INR WNL; Ca 9.4; Mg 2.3; trop 11.6 - CBC, BMP am - Pain management -- requested Acetaminophen -- Acetaminophen prn fever/pain, morphine for severe pain - CXR s/p placement of R IJ Vrnxgh-h-Ujua catheter without pneumothorax, emphysema with pulmonary vascular congestion, interval development of ill- defined R midlung opacities may be edema versus pneumonitis, large RONIT mass re- demonstrated - EKG pending - Zofran prn N/V - Gentle IVF - O2 prn with goal 88-93% -- No O2 at baseline - PT/OT ordered - appreciate assistance - Gen sx consulted - appreciate ongoing input + recs regarding most recent RIJ port insertion - Head Ct normal. - Continue Rocephin and doxycycline. -Plan for rehabilitation due to profound deconditioning. 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 No complaints per patient at this time. Lung CA dx 04/14/2025, with maria ines to brain and adrenal; previously complicated with cerebral edema. H/o COPD. Follows with heme/onc, radiation to brain then chemo to be started for lung CA; On dexamethasone po. - Gen surg saw him. #Leukocytosis In setting of known carcinoma, also on dexamethasone at baseline. Received Cefazolin pre-op. No clear source of infection at present time. - CBC leukocytosis 28.06, no neutropenia - CBC am - Lactate 2.4 (no AG; ? 2/2 carcinoma, ? underlying infection) procal 0.46 - CXR without pneumothorax, emphysema with pulmonary vascular congestion, ill- defined R midlung opacities (edema versus pneumonitis), large RONIT mass re- demonstrated #H/o stage IV colon CA- S/p chemo, radiation, and sx in 1996 #GERD- Pantoprazole - continue Dispo: Admit, med/tele -- initially placed as med/sx but given hypoxia and weakness, adjusted to med/tele VTE Prophylaxis: SCDs Admission and Anticipated Discharge Date Admission Date: May 28, 2025 Supervising Physician Co-Signing Physician Notes I personally examined the patient and verified mueller points of history and exam, discussed case, and agree with decision making and plan documented by Dr. Vail. Patient is a 79-year-old male with pertinent past medical history of metastatic adenocarcinoma of the lung presenting with hypoxia and weakness. Continue IV doxycycline and ceftriaxone. Patient on 3L, no home O2. Encouraged patient to work with clinical program director for nutritional optimization. Plan for rehabilitation due to profound deconditioning. Discussed plan with patient's and daughter at bedside last evening. Subjective patient reports + shortness of breath, On nasal cannula 3-4L. he is eating in bed sitting up without issues. no problem with port, but a little tender if pressed upon Physical Exam Physical Exam: General: No acute distress, under warming blanket Skin: Warm and dry Head: Normocephalic, atraumatic Eyes: PERRL, conjunctivae clear, sclera non-icteric ENT: External ear and ear canal without swelling; nose atraumatic; good dentition, tongue normal appearance, pharynx normal Neck: Supple, no LAD Cardio/Chest: port incision c/d/i, no signs of infection no M/G/R, S1 and S2 normal Resp: No respiratory distress, slightly diminished lung sounds throughout; Lungs CTA in all lobes bilaterally, no wheezes, rales, or rhonchi Abdomen: Soft, symmetric, nontender; No masses or hepatosplenomegaly; Bowel sounds normoactive MSK: No deformities; pulses palpable and equal; no edema. Neuro: Awake, alert; Sensation intact bilaterally; CN grossly intact - 3/5 strength BLE, 4/5 strength BUE, normal sensation Psych: Appropriate mood and affect; good judgement and insight. Results & Data Results & Data Vital Signs (Past 12 Hours) Vital Signs Temp Pulse Resp BP Pulse Ox O2 Del Method O2 Flow Rate 05/29/25 07:44 Nasal Cannula 3 05/29/25 07:34 36.4 C L 87 19 153/74 H 92 Nasal Cannula 3
[2025-05-30 07:11] LABS: Hematocrit (blood only) 29.9 % (42.0-52.0); Hemoglobin 10.3 g/dl (14.0-18.0); Mean Corpuscular Hemoglobin 35.6 pg (25.0-34.0); Mean Corpuscular Volume 103.5 fL (80.0-100.0); Platelet Count 144 K/uL (130-400); RDW Standard Deviation 56.3 fL (36.4-46.3); Red Blood Count 2.89 M/uL (4.70-6.10); White Blood Count 25.73 K/ul (4.8-10.8)
[2025-05-30 07:29] LABS: Immature Granulocytes # (auto) 1.17 K/uL (0.01-0.20); Immature Granulocytes % (auto) 4.5 %
[2025-05-30 07:42] LABS: Alanine Aminotransferase 42.0 U/L (7-52); Albumin Globulin Ratio 1.0 (0.9-2); Alkaline Phosphatase 106.0 U/L (34-104); Anion Gap 7.0 (3-11); Bilirubin,Total 0.4 mg/dl (0.2-1.0); Blood Urea Nitrogen 28.0 mg/dl (6-23); Calcium 9.8 mg/dl (8.6-10.3); Carbon Dioxide 24.0 mmol/L (21-32); Chloride 101.0 mmol/L (98-107); Creatinine Clr Calc Pharmacy 84.8 ml/min; Globulin 2.3 gm/dl (2.5-4.0); Potassium 4.3 mmol/L (3.5-5.1); Sodium 132.0 mmol/L (136-145); Total Protein 4.7 gm/dl (6.0-8.3)
--- NOTE | 2025-05-30 18:28 | Hospitalist Progress Note ---
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 His evaluation is still pending, but he does re-demonstrate leukocytosis of 28.06 which has increased from prior, as well as H&H 11.7/34.3. Lactate elevated at 2.4, procal WNL. #Weakness/Hypoxia -Multifactorial cause in setting of metastatic carcinoma, recent surgical intervention, and possibly dehydration. - CBC leukocytosis 28->25.73, BUN-28, Cr-0.8; CBC, BMP am - Continue Acetaminophen prn fever/pain, morphine for severe pain - CXR interstitial thickening suggestive of pulmonary edema or treatment related pneumonitis. - Zofran prn N/V - O2 prn with goal 88-93% -- No O2 at baseline - Continue PT/OT - Head Ct normal. - Continue Rocephin and doxycycline. - Consider D/c on Cefpodoxime tomorrow to rehabilitation center due to profound deconditioning. 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 No complaints per patient at this time. Lung CA dx 04/14/2025, with maria ines to brain and adrenal; previously complicated with cerebral edema. H/o COPD. Follows with heme/onc, radiation to brain then chemo to be started for lung CA; On dexamethasone po. - Gen surg saw him. #Leukocytosis In setting of known carcinoma, also on dexamethasone at baseline. Received Cefazolin pre-op. No clear source of infection at present time. - CBC leukocytosis 28.06->25.73, no neutropenia - CBC am - CXR without pneumothorax, emphysema with pulmonary vascular congestion, ill- defined R midlung opacities (edema versus pneumonitis), large RONIT mass re- demonstrated. #H/o stage IV colon CA- S/p chemo, radiation, and sx in 1996 #GERD- Pantoprazole - continue Dispo: Admit, med/tele -- initially placed as med/sx but given hypoxia and weakness, adjusted to med/tele VTE Prophylaxis: SCDs Admission and Anticipated Discharge Date Admission Date: May 28, 2025 Supervising Physician Co-Signing Physician Notes I personally examined the patient and verified mueller points of history and exam, discussed case, and agree with decision making and plan documented by Dr. Vail. Patient is a 79-year-old male with pertinent past medical history of metastatic adenocarcinoma of the lung presenting with hypoxia and weakness. Continue IV doxycycline and ceftriaxone, transition to oral at discharge. Weaning oxygen, no O2 at home, will likely need two step. Continue working with director global sales for nutritional optimization. Plan for rehabilitation due to profound deconditioning. Patient understanding that he can only do his best and if he is unable to progress in rehab, can consider hospice at home. Subjective patient reports + shortness of breath and weakness on LE. Tailbone pressure d/t constant sleeping position. On nasal cannula 2 L. He is eating in bed sitting up without issues. no problem with port, but a little tender if pressed upon Review of Systems Review of Systems: All systems reviewed & are unremarkable except as noted in Subjective Physical Exam Physical Exam: General: No acute distress, under warming blanket Skin: Warm and dry Head: Normocephalic, atraumatic Eyes: PERRL, conjunctivae clear, sclera non-icteric ENT: External ear and ear canal without swelling; nose atraumatic; good dentition, tongue normal appearance, pharynx normal Neck: Supple, no LAD Cardio/Chest: port incision c/d/i, no signs of infection no M/G/R, S1 and S2 normal Resp: No respiratory distress, slightly diminished lung sounds throughout; Lungs CTA in all lobes bilaterally, no wheezes, rales, or rhonchi Abdomen: Soft, symmetric, nontender; No masses or hepatosplenomegaly; Bowel sounds normoactive MSK: No deformities; pulses palpable and equal; no edema. Neuro: Awake, alert; Sensation intact bilaterally; CN grossly intact - 3/5 strength BLE, 4/5 strength BUE, normal sensation Psych: Appropriate mood and affect; good judgement and insight. Results & Data Results & Data Vital Signs (Past 12 Hours) Vital Signs Temp Pulse Resp BP BP Pulse Ox O2 Del Method 05/30/25 15:33 36.3 C L 91 H 16 146/80 H 98 Nasal Cannula 05/30/25 08:00 Nasal Cannula 05/30/25 07:07 36.4 C L 84 20 149/69 H 93 Nasal Cannula O2 Flow Rate 05/30/25 15:33 2 05/30/25 08:00 3 05/30/25 07:07 3 Resident Activity Tracking Resident Involvement: Resident Care Provided Care Provided: Adult Hospital Medicine
[2025-05-31 08:00] LABS: Hematocrit (blood only) 28.8 % (42.0-52.0); Hemoglobin 10.3 g/dl (14.0-18.0); Mean Corpuscular Hemoglobin 36.8 pg (25.0-34.0); Mean Corpuscular Volume 102.9 fL (80.0-100.0); Platelet Count 138 K/uL (130-400); RDW Standard Deviation 55.2 fL (36.4-46.3); Red Blood Count 2.80 M/uL (4.70-6.10); White Blood Count 26.00 K/ul (4.8-10.8)
[2025-05-31 08:01] LABS: Alanine Aminotransferase 42.0 U/L (7-52); Albumin Globulin Ratio 1.0 (0.9-2); Alkaline Phosphatase 103.0 U/L (34-104); Anion Gap 6.0 (3-11); Bilirubin,Total 0.4 mg/dl (0.2-1.0); Blood Urea Nitrogen 29.0 mg/dl (6-23); Calcium 9.8 mg/dl (8.6-10.3); Carbon Dioxide 24.0 mmol/L (21-32); Chloride 103.0 mmol/L (98-107); Creatinine Clr Calc Pharmacy 91.0 ml/min; Globulin 2.2 gm/dl (2.5-4.0); Potassium 4.2 mmol/L (3.5-5.1); Sodium 133.0 mmol/L (136-145); Total Protein 4.5 gm/dl (6.0-8.3)
[2025-05-31 08:12] LABS: Immature Granulocytes # (auto) 1.24 K/uL (0.01-0.20); Immature Granulocytes % (auto) 4.8 %
--- NOTE | 2025-05-31 18:12 | Hospitalist Progress Note ---
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 His evaluation is still pending, but he does re-demonstrate leukocytosis of 28.06 w hich has increased from prior, as well as H&H 11.7/34.3. Lactate elevated at 2.4, procal WNL. # Acute hypoxic respiratory failure | stage IV adenocarcinoma of the lungs Multifactorial cause in setting of metastatic carcinoma, recent surgical intervention, possible dehydration, and potential pneumonia Continue Acetaminophen PRN fever/pain, morphine for severe pain CXR revealed a patchy right lung opacity which could represent pneumonia; interstitial thickening suggestive of pulmonary edema or treatment related pneumonitis Zofran prn N/V O2 prn with goal 88-93% -- No O2 at baseline Two-step ordered, pending Continue ceftriaxone 1000 mg IV q24h Continue doxycycline 100 mg IV q12h Pulmonology consult appreciated #Generalized weakness PT/OT recommendations appreciated Patient referred to [facility] swing bed program However, he would not be able to receive chemotherapy at this program Discussed with Dr. Gutierrez, case management, and family on 05/31 Unclear if targeted pill therapy (tagrisso) would preclude him from going to rehab, as this is not an IV chemotherapy medication CM following, and will f/u on 06/01 #Dysphagia Switched to easy to chew diet Speech therapy consult appreciated Aspiration cautions #S/p RIJ port insertion/Metastatic adenocarcinoma of lung/Cerebellar and adrenal gland metastasis Performed 05/26/2025, no apparent complications. No complaints per patient at this time. Lung CA dx 04/14/2025, with maria ines to brain and adrenal; previously complicated with cerebral edema. H/o COPD. Follows with heme/onc, radiation to brain then chemo to be started for lung CA; On dexamethasone po. - Gen surg saw him. #Leukocytosis In setting of known carcinoma, also on dexamethasone at baseline. Received Cefazolin pre-op. No clear source of infection at present time. - CBC leukocytosis 28.06->25.73->26.00, no neutropenia - CBC am - CXR without pneumothorax, emphysema with pulmonary vascular congestion, ill- defined R midlung opacities (edema versus pneumonitis), large RONIT mass re- demonstrated. #H/o stage IV colon CA- S/p chemo, radiation, and sx in 1996 #GERD- Pantoprazole - continue Dispo: Continued stay on MedSurg telemetry VTE Prophylaxis: SCDs Updated patient's (Bárbara) and daughter (Cheyenne) at bedside on 05/31. Admission and Anticipated Discharge Date Admission Date: May 28, 2025 Subjective Mr. Fontenot reports he is still having "labored breathing" at times. He feels like he "cannot get enough air". Patient is not on supplemental oxygen at baseline or CPAP at night. He does endorse ongoing weakness of his legs. He is a former tobacco cigarette smoker but quit 6 months ago. Patient is a poor historian this time, he is unsure if he has lung cancer, but reports that the port was placed "just in case". Additionally, he reports he had difficulty swallowing his food this morning, and is concerned that he might have aspirated some of his pudding. ROS: Patient endorses SOB at rest, cough, and intermittent difficulty swallowing. Patient denies fever, chest pain, pleuritic CP, abdominal pain, or N/V. Review of Systems Review of Systems: See HPI above Physical Exam Physical Exam: General: no acute distress; non-toxic appearing; frail appearing; cooperative; SpO2 100% on 4L NC HEENT: normocephalic, atraumatic; no scleral icterus; PERRLA w/ EOMs intact; vision and hearing grossly intact Neck: supple; no lymphadenopathy; trachea midline Skin: warm, dry without signs of tenting; no cyanosis; no rashes, bruising, lesions, or erythema noted CV: chest wall NTP; RRR; S1/S2 normal; no murmurs/rubs/gallops; pulses intact and symmetric at radial, DP, and PT Lungs: no acute respiratory distress; symmetrical chest wall expansion; clear b reath sounds across all lung pace w/o adventitious sounds; no wheezing ABD: Soft, NTP; BS present; no rebound/guarding; no distention MSK: no tics or fasciculations; no edema noted in the LEs b/l, nonerythematous Neuro: A&Ox3; normal mood and affect; fluent speech; no focal deficits; sensation grossly intact in the LEs b/l Results & Data Results & Data Vital Signs (Past 12 Hours) Vital Signs Temp Pulse Resp BP Pulse Ox O2 Del Method O2 Flow Rate 05/31/25 13:49 36.3 C L 89 18 127/66 100 Nasal Cannula 4 05/31/25 07:40 Nasal Cannula 3 05/31/25 07:06 36.3 C L 83 16 167/71 H 91 Nasal Cannula 2 PG Care Time/CCT Total # of Minutes Spent Total Time Spent with Patient: Total time spent is greater than 50% in coordination of care (as documented) at patient's floor/unit and/or counseling patient: C[place] [address] SUB INP/OBS CARE 3/50MIN Patient Type Established History Comprehensive Exam Comprehensive Medical Decision Making High Complexity Diagnoses Hypoxia R09.02 Weakness R53.1 Leukocytosis D72.829 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
--- NOTE | 2025-06-01 12:10 | Pulmonary Consultation ---
Date of Consultation June 01, 2025 Assessment & Plan (1) Acute hypoxic respiratory failure: (2) COPD with emphysema: (3) Lung mass: (4) Primary adenocarcinoma of upper lobe of left lung: Plan Tj Fontenot is an 79 year old male with past medical history significant for hemochromatosis receiving phlebotomy treatments, CN palsy, PAD, COPD, HLD, osteoarthritis, GERD, vertigo, colon CA 1996 s/p resection/chemo/radiation, and lung cancer NSCLC adenocarcinoma stage IV with mets to the brain; who presented originally on 05/26/2025 for a planned placement of a right mediport catheter. Post operatively though the patient was weak and unable to safely return home. Patient noted to have some shortness of breath and hypoxia. Chest x-ray showed patchy right lung opacity which could represent pneumonia; interstitial thickening suggestive of pulmonary edema or treatment related pneumonitis. Patient started on doxycycline and ceftriaxone for possible pneumonia. COPD GOLD A -Not on inhalers at home -Recent PFT show moderate obstructive lung disease -Start incruse and duonebs PRN Hypoxic respiratory failure likely multifactorial s/o deconditioning, advanced lung cancer, possible pneumonia, COPD -Patient not on oxygen at home. Though premorbid state patient did have shortness of breath especially with exertion. -Maintain SpO2 > 90%. Wean oxygen as tolerated to maintain SpO2 goal. -Patient completed 5 days of ceftriaxone and doxycycline for CAP. Will repeat Procal. -Will check BNP and repeat chest x-ray for possible pulmonary edema. -Would recommend continued use of ISB and OOB as tolerated. -Patient on dexamethasone for brain and adrenal mets. -Palliative care consult would be appropriate given symptom burden and advanced lung CA. Stage IV lung adenocarcinma -Management per heme/onc Tobacco former everyday smoker -61 pack year history -Quit after diagnosis of lung CA. Thank you for allowing us to participate in this patient's care. please feel free to reach out with questions or concerns. 56 minutes is the time spent reviewing the chart, obtaining history, performing the physical exam, and updating the patient, family, and bedside nurse. 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 The patient is followed by Dr. Ornelas from [facility] pulmonary. Patient underwent robotic bronch biopsy and EBUS on 04/14/2025 which identified the lung adenocarcinoma in the left upper lobe mass. Patient saw Heme/onc and was being treated with Tagrisso and whole brain radiation for the brain mets. 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 On 05/26/2025 patient had placement of right access port. Post operatively though the patient was weak and unable to safely return home. Patient was admitted to the hospitalist service for evaluation and management. Patient noted to have some shortness of breath and hypoxia. Chest x-ray showed patchy right lung opacity which could represent pneumonia; interstitial thickening suggestive of pulmonary edema or treatment related pneumonitis. Patient started on doxycycline and ceftriaxone for possible pneumonia. Pulmonary formally consulted on 05/31/2025 for further recommendations and evaluation. Allergies Allergy/AdvReac Type Severity Reaction Status Date / Time naproxen AdvReac Intermediate Headache Verified 05/26/25 13:25 apple AdvReac Diarrhea Verified 05/27/25 13:35 Home Medications Medication Instructions Recorded Confirmed Type clopidogrel 75 mg tablet 75 mg PO DAILY 10/12/19 05/26/25 History aspirin 81 mg tablet 81 mg PO Q2D 03/24/25 05/26/25 History acetaminophen 300 mg-codeine 30 mg 1 tab PO Q6H PRN Pain 04/06/25 05/26/25 History tablet acetaminophen 500 mg capsule 1,000 mg PO QID PRN Pain 04/06/25 05/26/25 History cyanocobalamin (vitamin B-12) 1,000 mcg PO DAILY 04/06/25 05/26/25 History 1,000 mcg tablet cholecalciferol (vitamin D3) 25 5,000 unit PO DAILY 04/07/25 05/26/25 History mcg (1,000 unit) tablet oxycodone 5 mg tablet 5 mg PO .Q4-6H PRN Pain 04/26/25 05/26/25 History dexamethasone 4 mg tablet 4 mg PO TID #120 tabs 04/28/25 05/26/25 Rx pantoprazole 40 mg tablet,delayed 40 mg PO DAILY #30 tabs 04/28/25 05/26/25 Rx release Patient History Medical History (Updated 06/01/25 @ 16:21 by Mirza Sanchez PA-C) Shortness of breath with activity and flight of stairs GERD (gastroesophageal reflux disease) Vertigo gets dizzy with standing Hemochromatosis follows with [facility] heme and receives monthly phlebotomy tx; heterozygous for H63D mutation CN palsy, bilateral pt unaware PAD (peripheral artery disease) COPD with emphysema no inhalers, controlled per pt Lung cancer metastatic to brain reason for up coming port placement Cigarette smoker 60 pack yr hx Unintentional weight loss 11lb wt loss in past 3 months per 06/01/25 pulm note Hyperlipidemia Arthritis Vascular problem PVD: poor artery vascular flow from waste down from radiation secondary to colon cancer>reason for plavix; follows with vascular History of colon cancer surgery/radiation/chemo 1997 years ago Surgical History (Updated 05/27/25 @ 15:59 by Arlene Manuel, RN) Port-A-Cath in place (05/26/25) Dr. Jauregui History of bronchoscopy Family history of reaction to anesthesia daughter>"difficult sedating" History of colonoscopy (1996) History of colon resection (1996) 10/25 colon cancer History of tooth extraction H/O vascular surgery iliac artery stenting 2013 x2; iliac artery stenting 10/2024 [facility] x2 Family History Brother Prostate cancer Father Colorectal cancer Aunt Cancer Colon Sister Breast cancer Mother Breast cancer Heart disease Grandmother Diabetes Social History Smoking Status: Former smoker Tobacco Type: Cigarettes Age Started Using Tobacco: 16; Age Quit Using Tobacco: 79; packs per day: 1; Smoking End Date: 4 mos ago; Second Hand Exposure: No; Do You Dip or Chew Tobacco: No; Tobacco Cessation Education Requested by Patient: No Hx Alcohol Use: Yes Alcohol type: wine Alcohol type Comment: daily Alcohol Intake Frequency: 4 or More x per/Week Hx Substance Use: No Preferred Language: Romansh Communication Ability: Effective 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 WEIGHT/BMI reviewed. GEN: Chronically ill appearing appearing, well-developed, NAD. PSYCH: Flat affect, AOx3, good insight. HEENT -Head: NC/AT; -Eyes: PERRL, EOMI. No discharge or redn ess; -Ears: External ears are normal. -Nose: Normal nares. NECK: Supple, with no masses. CV: RRR, no m/r/g. LUNGS: Clear in bilateral upper lobes with diminished bases. Chest rise symmetrical. Breathing nonlabored. ABD: Soft, NT/ND, NBS, no masses or organomegaly. : N/A SKIN: Warm, well perfused. No skin rashes or abnormal lesions. MSK: No deformities, Normal gait. EXT: No clubbing, cyanosis, or edema. NEURO: Generalized weakness. No focal deficits. Results & Data Results & Data Vital Signs (Past 12 Hours) Vital Signs Temp Pulse Resp BP Pulse Ox O2 Del Method O2 Flow Rate 06/01/25 07:13 Nasal Cannula 3 06/01/25 07:00 36.6 C 98 H 16 157/80 H 95 Nasal Cannula Laboratory Results 05/31/25 07:18 05/31/25 07:18 Diagnostic Findings Chest X-Ray 05/26/25 15:20 XR chest 1V portable HISTORY: 79 years-old Male post op port placement status post placement of a right IJ Gaupal-v-Fbkc catheter COMPARISON: Chest radiograph 04/26/2025, PET CT 04/22/2025 TECHNIQUE: AP view of the chest FINDINGS: Emphysema with left upper lobe mass redemonstrated. Ill-defined interstitial and alveolar opacities in the right midlung are new from prior. Pulmonary vascular congestion. No pneumothorax or pleural effusion. Right IJ Sprlwp-d-Mhai catheter distal tip noted within the expected location of the mid SVC. IMPRESSION: 1. Status post placement of a right IJ Fphxke-d-Ndcm catheter. No postprocedural pneumothorax. 2. Emphysema with pulmonary vascular congestion. 3. Interval development of ill-defined right mid lung opacities which may represent asymmetric pulmonary edema versus pneumonitis. 4. Large left upper lobe mass redemonstrated. ACT 112: Negative or not required by law. The above report was generated using voice recognition software. It may contain grammatical, syntax or spelling errors. Electronically signed by: Carlos Brizuela M.D. 05/26/2025 3:[address] 05/27/25 10:14 CT SCAN OF THE BRAIN WITHOUT IV CONTRAST CLINICAL HISTORY: Weakness COMPARISON STUDY: CT scan dated 05/27/2025, MRI the brain dated 04/02/2025 TECHNIQUE: Unenhanced axial CT scan of the brain was performed from the vertex to the skull base. A dose lowering technique was utilized adhering to the principles of ALARA. CT DOSE: 703.85 mGy.cm FINDINGS: There is no CT evidence of acute cortical infarction. There is no hydrocephalus. There is no evidence of acute intracranial hemorrhage. There are patchy white matter hypodensities, likely on a small vessel basis. There is a 15 mm hypodensity within the right cerebral hemisphere just beneath tentorium. This appears smaller than on the prior CT scan, and likely represents residual edema status post treatment of cerebellar metastatic disease. There is a stable hyperdense 8 mm nodule within the right superior parafalcine region. IMPRESSION: 1. Interval decrease in the size of the previously described right cerebellar mass with surrounding edema. Resolution of the mass effect on the brainstem and fourth ventricle. 2. No evidence of acute hemorrhage. No evidence of hydrocephalus. ACT 112: Negative or not required by law. Electronically signed by: Antonio Lyons M.D. 05/27/2025 12:07 PM Chest X-Ray 05/27/25 12:18 XR chest 1V portable CLINICAL HISTORY: O2 requirement COMPARISON STUDY: 05/26/2025 FINDINGS: The heart is normal in size. A right-sided A-Port catheter is visualized. There are progressive airspace opacities within the right mid to upper lung zone suggestive of a progressive pneumonia. There is a persistent 12 cm left upper lobe mass. There is mild elevation of interstitium suggesting mild pulmonary vascular congestion. There are no significant pleural effusions. There is no pneumothorax. IMPRESSION: 1. Redemonstration of a 12 cm left upper lobe pulmonary mass 2. Progressive airspace opacities within the right mid to upper lung zone, likely representing a progressive pneumonia. 3. Mild elevation of the interstitium suggesting mild pulmonary vascular congestion ACT 112: Negative or not required by law. Electronically signed by: Antonio Lyons M.D. 05/27/2025 2:43 PM Chest X-Ray 05/29/25 10:46 XR chest 1V portable CLINICAL HISTORY: Chest pain. COMPARISON STUDY: Chest radiograph May 27, 2025. PET/CT April 22, 2025. FINDINGS: Right internal jugular central line remains in place. Large left upper lobe mass is again noted. There is no pneumothorax or pleural effusion. Diffuse interstitial thickening and patchy right mid to upper lung airspace opacities have progressed. A left fifth rib lytic lesion is again noted. Cardiomediastinal silhouette is stable. IMPRESSION: 1. Demonstration of the left upper lobe mass. 2. Increase in interstitial thickening suggestive of pulmonary edema. 3. Patchy right lung opacities which could represent pneumonia, alveolar pulmonary edema or treatment related pneumonitis. ACT 112: Negative or not required by law. Electronically signed by: Aureliano Caldera M.D. 05/29/2025 11:53 AM PG Care Time/CCT Total # of Minutes Spent Total Time Spent with Patient: Total time spent is greater than 50% in coordination of care (as documented) at patient's floor/unit and/or counseling patient: Coding Level of Care Code 49555 INT INP/OBS CARE 2/55MIN Diagnoses Acute hypoxic respiratory failure J96.01 COPD with emphysema J43.9 Lung mass R91.8 Primary adenocarcinoma of upper lobe of left lung C34.12
[2025-06-01] MEDS: NYSTATIN SUSP 500,000 U/5 ML UDC PO SCH (13:54)
[2025-06-01] MEDS: UMECLIDINIUM BROMIDE 62.5MCG/BLISTER 7 PUFFS/INHALER INH SCH (13:54)
--- NOTE | 2025-06-01 16:16 | Hospitalist Progress Note ---
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 His evaluation is still pending, but he does re-demonstrate leukocytosis of 28.06 which has increased from prior, as well as H&H 11.7/34.3. Lactate elevated at 2.4, procal WNL. #Acute hypoxic respiratory failure | stage IV adenocarcinoma of the lungs Multifactorial cause of hypoxia in setting of metastatic carcinoma, recent surgical intervention, possible dehydration, and potential pneumonia CXR revealed a patchy right lung opacity which could represent pneumonia; interstitial thickening suggestive of pulmonary edema or treatment related pneumonitis Continue Acetaminophen PRN fever/pain, morphine for severe pain Zofran prn N/V O2 prn with goal 88-93% -- No O2 at baseline Ambulatory pulse ox ordered, pending on 06/01 Attempt to ween supplemental O2 as tolerated Continuous pulse oximetry Continue ceftriaxone 1000 mg IV q24h Continue doxycycline 100 mg IV q12h Pulmonology consult appreciated Ambulatory case management consult, per family request (would like resources on how to obtain home medical bed after patient is to return home from rehab) #Generalized weakness PT/OT recommendations appreciated Patient referred to [facility] swing bed program Per [facility], family would need to provide targeted pill chemotherapy if he were to be excepted; IV chemotherapy would not be an option while at rehab Did discuss this with patient's , reports it would not be a problem to bring in the medication CM following [facility] bed [facility] requesting updated PT/OT evaluations as well as pulmonary consult evaluation on 06/01 Per review of PT/OT notes on 06/01, patient was feeling too weak to par ticipate in therapy today Pulmonary note is still in draft on 06/01 at 1900 #Oral candidiasis/thrush Nystatin 5 mL suspension QID x 10 days #Dysphagia Speech therapy consult appreciated Recommending small bites diet Aspiration/reflux precautions #S/p RIJ port insertion/Metastatic adenocarcinoma of lung/Cerebellar and adrenal gland metastasis Performed 05/26/2025, no apparent complications. No complaints per patient at this time. Lung CA dx 04/14/2025, with maria ines to brain and adrenal; previously complicated with cerebral edema. H/o COPD. Follows with heme/onc, radiation to brain then chemo to be started for lung CA; On dexamethasone po. General surgery consult appreciated #Leukocytosis In setting of known carcinoma, also on dexamethasone at baseline. Received Cefazolin pre-op. No clear source of infection at present time. CBC leukocytosis 28.06->25.73->26.00, no neutropenia CXR without pneumothorax, emphysema with pulmonary vascular congestion, ill- defined R midlung opacities (edema versus pneumonitis), large RONIT mass re- demonstrated. #H/o stage IV colon CA- S/p chemo, radiation, and sx in 1996 #GERD- Pantoprazole - continue Dispo: Continued stay on MedSurg telemetry; hopeful discharge to [facility] bed program in next 1 to 2 days pending updated PT/OT evaluations VTE Prophylaxis: SCDs Updated patient's (Bárbara) and daughter (Cheyenne) at bedside on 05/31 and 06/01. Admission and Anticipated Discharge Date Admission Date: May 28, 2025 Subjective Mr. Fontenot reports he slept well last night, but is not feeling hungry this morning for breakfast. He again expresses a desire to leave the hospital. He does endorse SOB at rest, and reports that it is harder to take deep breaths. He denies pleuritic CP. Overall, he reports feeling very weak. He endorses feeling unsteady on his feet and has difficulty ambulating to the bathroom. He endorses lightheadedness whenever he stands. Additionally, he still has difficulty swallowing. ROS: Patient endorses difficulty swallowing, SOB at rest, lightheadedness with standing, and generalized weakness. Patient denies chest pain, pleuritic CP, abdominal pain, or cough. Updated patient's at bedside around 1100. Both patient and patient's are in agreement that they would prefer rehab given patient's significant strength deficits, even if this meant deferring chemotherapy until after rehab was completed. 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 Review of Systems Review of Systems: See HPI above Physical Exam Physical Exam: General: no acute distress; pleasant affect; non-toxic appearing; at bedside; frail appearing; cooperative; SpO2 95% on 3L NC HEENT: normocephalic, atraumatic; no scleral icterus; PERRLA w/ EOMs intact; patient exhibits white exudates on the oral pharynx bilaterally; vision intact; hard of hearing Neck: supple; no lymphadenopathy; trachea midline Skin: warm, dry without signs of tenting; no cyanosis; no rashes, bruising, lesions, or erythema noted CV: chest wall NTP; RRR; S1/S2 normal; pulses intact and symmetric at radial, DP, and PT Lungs: no acute respiratory distress; symmetrical chest wall expansion; clear breath sounds across all lung pace w/o adventitious sounds; no wheezing ABD: Soft, NTP; BS present; no rebound/guarding; no distention MSK: no tics or fasciculations; no edema noted in the LEs b/l, nonerythematous Neuro: A&Ox3; normal mood and affect; fluent speech; no focal deficits; sensation intact and symmetric in lower EXTR bilaterally Results & Data Results & Data Vital Signs (Past 12 Hours) Vital Signs Temp Pulse Resp BP Pulse Ox O2 Del Method O2 Flow Rate 06/01/25 07:13 Nasal Cannula 3 06/01/25 07:00 36.6 C 98 H 16 157/80 H 95 Nasal Cannula PG Care Time/CCT Total # of Minutes Spent Total Time Spent with Patient: Total time spent is greater than 50% in coordination of care (as documented) at patient's floor/unit and/or counseling patient: Coding [place] [address] SUB INP/OBS CARE 2/35MIN Patient Type Established History Comprehensive Exam Comprehensive Medical Decision Making Moderate Complexity Diagnoses Hypoxia R09.02 Weakness R53.1 Leukocytosis D72.829 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
[2025-06-01] MEDS ORDERED: ALBUT/IPRATROP 3MG/0.5MG NEB 3 ML VIAL NEB PRN (22:36)
[2025-06-02 07:43] LABS: White Blood Count 33.92 K/ul (4.8-10.8)
[2025-06-02 07:44] LABS: Hematocrit (blood only) 31.5 % (42.0-52.0); Hemoglobin 11.0 g/dl (14.0-18.0); Mean Corpuscular Hemoglobin 35.7 pg (25.0-34.0); Mean Corpuscular Volume 102.3 fL (80.0-100.0); RDW Standard Deviation 55.6 fL (36.4-46.3); Red Blood Count 3.08 M/uL (4.70-6.10)
[2025-06-02 07:58] LABS: Anion Gap 6.0 (3-11); Blood Urea Nitrogen 33.0 mg/dl (6-23); Calcium 9.9 mg/dl (8.6-10.3); Carbon Dioxide 24.0 mmol/L (21-32); Chloride 101.0 mmol/L (98-107); Creatinine Clr Calc Pharmacy 94.6 ml/min; Glucose 133.0 mg/dl (70-99(Fasting)); Potassium 4.5 mmol/L (3.5-5.1); Sodium 131.0 mmol/L (136-145)
[2025-06-02 08:01] LABS: Immature Granulocytes # (auto) 0.82 K/uL (0.01-0.20); Immature Granulocytes % (auto) 2.4 %; Platelet Count 132 K/uL (130-400); Toxic Vacuolation 1+
--- NOTE | 2025-06-02 08:17 | XRay Report ---
EXAM: XR chest 1V portable CLINICAL HISTORY: f/u TECHNIQUE: An X-ray image of the chest was obtained in the anteroposterior (AP) projection. COMPARISON: 05/29/2025. FINDINGS: The right chemoport tip is located at the cavoatrial junction. Pulmonary Parenchyma: Nonhomogeneous airspace shadowing is seen in the left upper zone. Reticular shadowing is seen in the bilateral mid and lower zones. There is no evidence of pleural effusion or pleural thickening. Heart and Mediastinum: The size and shape of the heart are normal. There is no hilar or mediastinal lymphadenopathy. Bony Thorax: The thoracic spine shows marked degenerative changes in the form of osteophytosis, endplate sclerosis, and multilevel reduced disc heights. The bony thorax appears intact without fractures. Soft Tissues: The soft tissues overlying the chest wall are unremarkable. IMPRESSION: 1. Interval stability of the right chemoport with tip at the cavoatrial junction. 2. Interval stability of inhomogeneous airspace shadowing in the left upper lobe, likely neoplastic versus infective. 3. Interval stability of bilateral mid and lower zones reticular shadowing. 4. No significant interval changes. Electronically signed by Junior Monteiro 06-02-2025 08:17 AM
--- NOTE | 2025-06-02 15:34 | Pulmonology Progress Note ---
Date of Service June 02, 2025 Assessment & Plan (1) Acute hypoxic respiratory failure: (2) COPD with emphysema: (3) Lung mass: (4) Primary adenocarcinoma of upper lobe of left lung: Plan Tj Fontenot is an 79 year old male with past medical history significant for hemochromatosis receiving phlebotomy treatments, CN palsy, PAD, COPD, HLD, osteoarthritis, GERD, vertigo, colon CA 1996 s/p resection/chemo/radiation, and lung cancer NSCLC adenocarcinoma stage IV with mets to the brain; who presented originally on 05/26/2025 for a planned placement of a right mediport catheter. Post operatively though the patient was weak and unable to safely return home. Patient noted to have some shortness of breath and hypoxia. Chest x-ray showed patchy right lung opacity which could represent pneumonia; interstitial thickening suggestive of pulmonary edema or treatment related pneumonitis. Patient started on doxycycline and ceftriaxone for possible pneumonia. COPD GOLD A -Not on inhalers at home -Recent PFT show moderate obstructive lung disease -Start incruse and duonebs PRN Hypoxic respiratory failure likely multifactorial s/o deconditioning, advanced lung cancer, possible pneumonia, COPD -Patient not on oxygen at home. Though premorbid state patient did have shortness of breath especially with exertion. -Maintain SpO2 > 90%. Wean oxygen as tolerated to maintain SpO2 goal. -Patient completed 5 days of ceftriaxone and doxycycline for CAP. -BNP 98. Procal 0.09. CXR stable. this am -Would recommend continued use of ISB and OOB as tolerated. -Patient on dexamethasone for brain and adrenal mets. -Palliative care consult would be appropriate given symptom burden and advanced lung CA. Stage IV lung adenocarcinma -Management per heme/onc Tobacco former everyday smoker -61 pack year history -Quit after diagnosis of lung CA. Thank you for allowing us to participate in this patient's care. please feel free to reach out with questions or concerns. 36 minutes is the time spent reviewing the chart, obtaining history, performing the physical exam, and updating the patient, family, and bedside nurse. Admission and Anticipated Discharge Date Admission Date: May 28, 2025 Subjective Patient states his breathing is the same and he feels generally weak. Patient weaned to 1L Nasal cannula with Spo2 at 94%. CXR stable this am. BNP 98. Procalcitonin 0.09 after completion of AZT and CTX course. ISB ordered and patient should continue to use. Review of Systems 2 Review of Systems: All systems reviewed & are unremarkable except as noted in HPI & below Physical Exam 2 Physical Exam: VITALS: Reviewed. WEIGHT/BMI reviewed. GEN: Chronically ill appearing appearing, well-developed, NAD. PSYCH: Flat affect, AOx3, good insight. HEENT -Head: NC/AT; -Eyes: PERRL, EOMI. No discharge or redn ess; -Ears: External ears are normal. -Nose: Normal nares. NECK: Supple, with no masses. CV: RRR, no m/r/g. LUNGS: Clear in bilateral upper lobes with diminished bases. Chest rise symmetrical. Breathing nonlabored. ABD: Soft, NT/ND, NBS, no masses or organomegaly. : N/A SKIN: Warm, well perfused. No skin rashes or abnormal lesions. MSK: No deformities, Normal gait. EXT: No clubbing, cyanosis, or edema. NEURO: Generalized weakness. No focal deficits. Results & Data Results & Data Vital Signs (Past 12 Hours) Vital Signs Temp Pulse Resp BP Pulse Ox O2 Del Method O2 Flow Rate 06/02/25 07:49 Nasal Cannula 2.5 06/02/25 07:00 36.5 C 94 H 16 151/76 H 97 Nasal Cannula Laboratory Results 06/02/25 07:08 06/02/25 07:08 Abnormal Lab Results 06/02/25 07:08 WBC 33.92 H* RBC 3.08 L Hgb 11.0 L Hct 31.5 L MCV 102.3 H MCH 35.7 H MCHC 34.9 RDW Std Deviation 55.6 H RDW Coeff of Annamarie 15.0 H Plt Count 132 MPV 11.7 Immature Gran % (Auto) 2.4 Neut % (Auto) 92.4 Lymph % (Auto) 2.0 [place] % (Auto) 3.0 Eos % (Auto) 0.0 Baso % (Auto) 0.2 Neut # (Auto) 31.36 H Lymph # (Auto) 0.67 L [place] # (Auto) 1.01 H Eos # (Auto) 0.00 Baso # (Auto) 0.06 Immature Gran # (Auto) 0.82 H Absolute Nucleated RBC 0.14 H Nucleated RBC % (auto) 0.4 Toxic Vacuolation 1+ Sodium 131 L Potassium 4.5 Chloride 101 Carbon Dioxide 24 Anion Gap 6 BUN 33 H Creatinine 0.52 L Est Cr Clr Drug Dosing 94.6 eGFR 101.26 BUN/Creatinine Ratio 63.5 H Glucose 133 H Calcium 9.9 C-Reactive Protein 2.94 H B-Natriuretic Peptide 98 Procalcitonin 0.09 Diagnostic Findings Chest X-Ray 06/02/25 07:00 EXAM: XR chest 1V portable CLINICAL HISTORY: f/u TECHNIQUE: An X-ray image of the chest was obtained in the anteroposterior (AP) projection. COMPARISON: 05/29/2025. FINDINGS: The right chemoport tip is located at the cavoatrial junction. Pulmonary Parenchyma: Nonhomogeneous airspace shadowing is seen in the left upper zone. Reticular shadowing is seen in the bilateral mid and lower zones. There is no evidence of pleural effusion or pleural thickening. Heart and Mediastinum: The size and shape of the heart are normal. There is no hilar or mediastinal lymphadenopathy. Bony Thorax: The thoracic spine shows marked degenerative changes in the form of osteophytosis, endplate sclerosis, and multilevel reduced disc heights. The bony thorax appears intact without fractures. Soft Tissues: The soft tissues overlying the chest wall are unremarkable. IMPRESSION: 1. Interval stability of the right chemoport with tip at the cavoatrial junction. 2. Interval stability of inhomogeneous airspace shadowing in the left upper lobe, likely neoplastic versus infective. 3. Interval stability of bilateral mid and lower zones reticular shadowing. 4. No significant interval changes. Electronically signed by Junior Monteiro 06-02-2025 08:17 AM PG Care Time/CCT Total # of Minutes Spent Total Time Spent with Patient: Total time spent is greater than 50% in coordination of care (as documented) at patient's floor/unit and/or counseling patient: Coding Level of Care Code 68193 SUB INP/OBS CARE 2/35MIN Diagnoses Acute hypoxic respiratory failure J96.01 COPD with emphysema J43.9 Lung mass R91.8 Primary adenocarcinoma of upper lobe of left lung C34.12
--- NOTE | 2025-06-02 16:44 | Hospitalist Progress Note ---
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 His evaluation is still pending, but he does re-demonstrate leukocytosis of 28.06 which has increased from prior, as well as H&H 11.7/34.3. Lactate elevated at 2.4, procal WNL. #Acute hypoxic respiratory failure | stage IV adenocarcinoma of the lungs Multifactorial cause of hypoxia in setting of metastatic carcinoma, recent surgical intervention, possible dehydration, and potential pneumonia CXR revealed a patchy right lung opacity which could represent pneumonia; interstitial thickening suggestive of pulmonary edema or treatment related pneumonitis Continue Acetaminophen PRN fever/pain, morphine for severe pain Zofran prn N/V O2 prn with goal 88-93% -- No O2 at baseline Patient reportedly dropped to 82% on 2L NC while working with PT on 06/02 Attempt to ween supplemental O2 as tolerated Continuous pulse oximetry Antibiotic course was completed: Ceftriaxone 1 mg IV x 5 days completed on 05/31 Doxycycline 100 mg IV twice daily x 5 days completed on 05/31 Pulmonology consult appreciated Recent PFT showed moderate obstructive lung disease Continue Incruse Ellipta daily DuoNebs as needed Ambulatory case management consult, per family request (would like resources on how to obtain home medical bed after patient is to return home from rehab) Given patient's advanced disease, may benefit from palliative care consult #Leukocytosis In setting of known carcinoma, also on dexamethasone at baseline. Received Cefazolin pre-op. Patient completed course of ceftriaxone and doxycycline while in the hospital. Despite this, had an elevation in leukocytosis on 06/02 CBC trend: 28.06->25.73->26.00 -> 33.92 Clinically, patient denies any changes in infectious symptoms other than "generalized fatigue", and so it is possible that this rise in blood count is secondary to dexamethasone use Repeat CXR on 06/02 revealed no significant interval change Procalcitonin WNL CRP elevated at 2.94 Given patient's medical frailty, will order additional testing to assess for infection: Blood cultures ordered Repeat UA ordered #Generalized weakness PT/OT recommendations appreciated Patient referred to [facility] Per [facility], family would need to provide targeted pill chemotherapy if he were to be excepted; IV chemotherapy would not be an option while at rehab Did discuss this with patient's , reports it would not be a problem to bring in the medication CM following #Oral candidiasis/thrush Nystatin 5 mL suspension QID x 10 days #Dysphagia Speech therapy consult appreciated Recommending small bites diet Aspiration/reflux precautions #S/p RIJ port insertion/Metastatic adenocarcinoma of lung/Cerebellar and adrenal gland metastasis Performed 05/26/2025, no apparent complications. No complaints per patient at this time. Lung CA dx 04/14/2025, with maria ines to brain and adrenal; previously complicated with cerebral edema. H/o COPD. Follows with heme/onc, radiation to brain then chemo to be started for lung CA; On dexamethasone po. General surgery consult appreciated #H/o stage IV colon CA- S/p chemo, radiation, and sx in 1996 #GERD- Pantoprazole - continue Dispo: Continued stay on MedSurg telemetry; hopeful discharge to [facility] bed program in next 1 to 2 days pending updated PT/OT evaluations VTE Prophylaxis: SCDs Updated patient's (Bárbara) and daughter (Cheyenne) at bedside on 05/31 and 06/01. Admission and Anticipated Discharge Date Admission Date: May 28, 2025 Supervising Physician Co-Signing Physician Notes Attending Attestation - Chart reviewed, care plan d/w JERONIMO Sanchez. I agree w/ the mueller components of his documentation. Agree with blood cultures in light of persistent leukocytosis. Macrocytic anemia - check B12/folate/TSH to be complete. Reg Madsen MD Subjective Mr. Fontenot is seen shortly after working with PT today. PT report he was a max assist getting out of bed, but did have to stand from the chair. PT also report that his oxygen level dropped to 82% on 2L with ambulation. Patient reports he feels out of breath and fatigued, but his heart rate is returning to normal. No chest pain or palpitations. He denies any fevers overnight. He reports he slept well, and has been eating more today when compared to yesterday (he had 2 helpings of potatoes and gravy). He is also been having boost (per nursing staff), but is still having difficulty swallowing. Stressed the importance that patient continue to take nystatin suspension for his thrush. ROS: Patient endorses generalized fatigue, SOB with movements, easy fatigability, and "heaviness" in his legs. Patient denies chest pain, chest palpitations, or fevers. Review of Systems Review of Systems: See HPI above Physical Exam Physical Exam: General: Patient appears fatigued and short of breath after working with PT while sitting upright in his chair; non-toxic appearing; at bedside; frail appearing; cooperative; SpO2 90% on 1L NC HEENT: normocephalic, atraumatic; no scleral icterus; PERRLA; patient exhibits white exudates on the oral pharynx bilaterally; vision intact; hard of hearing Neck: supple; no lymphadenopathy; trachea midline Skin: warm, dry without signs of tenting; no cyanosis; no rashes, bruising, lesions, or erythema noted CV: chest wall NTP; RRR; S1/S2 normal; pulses intact and symmetric at radial, DP, and PT Lungs: Labored breathing; symmetrical chest wall expansion; clear breath sounds across all lung pace w/o adventitious sounds; no wheezing ABD: Soft, NTP; BS present; no rebound/guarding; no distention MSK: no tics or fasciculations; no edema noted in the LEs b/l, nonerythematous; 2/5 strength in legs bilaterally when asked to lift his legs against resistance Neuro: A&Ox3; normal mood and affect; fluent speech; no focal deficits; sensation intact and symmetric in lower EXTR bilaterally Results & Data Results & Data Vital Signs (Past 12 Hours) Vital Signs Temp Pulse Resp BP Pulse Ox O2 Del Method O2 Flow Rate 06/02/25 15:42 36.6 C 90 16 148/76 H 90 Nasal Cannula 1 06/02/25 07:49 Nasal Cannula 2.5 06/02/25 07:00 36.5 C 94 H 16 151/76 H 97 Nasal Cannula PG Care Time/CCT Total # of Minutes Spent Total Time Spent with Patient: Total time spent is greater than 50% in coordination of care (as documented) at patient's floor/unit and/or counseling patient: Coding [place] [address] SUB INP/OBS CARE 3/50MIN Patient Type Established Medical Decision Making High Complexity Diagnoses Hypoxia R09.02 Weakness R53.1 Leukocytosis D72.829 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
[2025-06-02 18:15] LABS: Appearance Urine Clear (Clear); Bacteria Urine Automated None Seen (None Seen); Epithelial Cell Urine Auto 0-2 /hpf (0-2); Glucose Urine UA 1+ (Negative); WBC Urine Automated 0-5 /hpf (0-5)
[2025-06-02] MEDS: MoRPHine SULFATE 2 MG/ML CARP IV PRN (22:33)
[2025-06-03 07:45] LABS: Hematocrit (blood only) 31.6 % (42.0-52.0); Hemoglobin 11.3 g/dl (14.0-18.0); Mean Corpuscular Hemoglobin 36.5 pg (25.0-34.0); Mean Corpuscular Volume 101.9 fL (80.0-100.0); Platelet Count 126 K/uL (130-400); RDW Standard Deviation 55.3 fL (36.4-46.3); Red Blood Count 3.10 M/uL (4.70-6.10); White Blood Count 34.69 K/ul (4.8-10.8)
[2025-06-03 07:57] LABS: Immature Granulocytes # (auto) 0.95 K/uL (0.01-0.20); Immature Granulocytes % (auto) 2.7 %; Polychromasia 1+; Tear Drop Cells 1+
[2025-06-03 08:01] LABS: Anion Gap 6.0 (3-11); Blood Urea Nitrogen 33.0 mg/dl (6-23); Calcium 9.8 mg/dl (8.6-10.3); Carbon Dioxide 25.0 mmol/L (21-32); Chloride 101.0 mmol/L (98-107); Creatinine Clr Calc Pharmacy 79.3 ml/min; Glucose 167.0 mg/dl (70-99(Fasting)); Potassium 4.5 mmol/L (3.5-5.1); Sodium 132.0 mmol/L (136-145)
[2025-06-03 08:16] LABS: Thyroid Stimulating Hormone 0.13 uIu/ml (0.300-4.500)
[2025-06-03 08:32] LABS: Folate (Folic Acid),Ser orPlas 5.26 ng/ml (>5.38)
[2025-06-03 08:33] LABS: Vitamin B12 > 1500 pg/ml (180-914)
[2025-06-03] MEDS ORDERED: VANCOMYCIN CONSULT ACTIVE PRN (09:18)
[2025-06-03] MEDS ORDERED: VANCOMYCIN HCL 1,000 MG in SODIUM CHLORIDE 0.9% 250 ML IV SCH (09:30)
[2025-06-03] MEDS: dexAMETHasone 4 MG in SYRINGE 0 ML IV ONE (10:25)
[2025-06-03] MEDS: VANCOMYCIN HCL 1,500 MG in SODIUM CHLORIDE 0.9% 500 ML IV ONE (10:30)
--- NOTE | 2025-06-03 10:41 | Pulmonology Progress Note ---
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 Post operatively though the patient was weak and unable to safely return home. Patient noted to have some shortness of breath and hypoxia. Chest x-ray showed patchy right lung opacity which could represent pneumonia; interstitial thickening suggestive of pulmonary edema or treatment related pneumonitis. Patient started on doxycycline and ceftriaxone for possible pneumonia. COPD GOLD A -Not on inhalers at home -Recent PFT show moderate obstructive lung disease -Start incruse and duonebs PRN Hypoxic respiratory failure likely multifactorial s/o deconditioning, advanced lung cancer, possible pneumonia, COPD -Patient not on oxygen at home. Though premorbid state patient did have shortness of breath especially with exertion. -Maintain SpO2 > 90%. Wean oxygen as tolerated to maintain SpO2 goal. -Patient completed 5 days of ceftriaxone and doxycycline for CAP. -BNP 98. Procal 0.09. CXR stable 06/02/25. -Would recommend continued use of ISB and OOB as tolerated. -Patient on dexamethasone for brain and adrenal mets. -Palliative care consult would be appropriate given symptom burden and advanced lung CA. Stage IV lung adenocarcinma -Management per heme/onc Tobacco former everyday smoker -61 pack year history -Quit after diagnosis of lung CA. Thank you for allowing us to participate in this patient's care. please feel free to reach out with questions or concerns. 36 minutes is the time spent reviewing the chart, obtaining history, performing the physical exam, and updating the patient, family, and bedside nurse. Admission and Anticipated Discharge Date Admission Date: May 28, 2025 Subjective "I just feel weak and run down." Patient remains on 2L nasal cannula this am with Spo2 92-93%. His breathing feels stable from the last two days but he feels generally weak. WBC increasing but procalcitonin was negative yesterday and he has been afebrile. Plan for patient to be discharged to swing bed program/SNF. Will likely need oxygen at least for the immediate future especially with sleep and activities. Review of Systems 2 Review of Systems: All systems reviewed & are unremarkable except as noted in HPI & below Physical Exam 2 Physical Exam: VITALS: Reviewed. WEIGHT/BMI reviewed. GEN: Chronically ill appearing appearing, well-developed, NAD. PSYCH: Flat affect, AOx3, good insight. HEENT -Head: NC/AT; -Eyes: PERRL, EOMI. No discharge or redn ess; -Ears: External ears are normal. -Nose: Normal nares. NECK: Supple, with no masses. CV: RRR, no m/r/g. LUNGS: Clear in bilateral upper lobes with diminished bases. Chest rise symmetrical. Breathing nonlabored. ABD: Soft, NT/ND, NBS, no masses or organomegaly. : N/A SKIN: Warm, well perfused. No skin rashes or abnormal lesions. MSK: No deformities, Normal gait. EXT: No clubbing, cyanosis, or edema. NEURO: Generalized weakness. No focal deficits. Results & Data Results & Data Vital Signs (Past 12 Hours) Vital Signs Temp Pulse Resp BP Pulse Ox Pulse Ox O2 Del Method 06/03/25 09:40 34.8 C L 06/03/25 08:03 33.3 C L 82 14 110/67 92 Nasal Cannula 06/03/25 06:59 36.5 C 75 20 135/72 93 Nasal Cannula 06/03/25 01:04 94 06/02/25 23:28 36.6 C 92 H 18 125/69 96 Nasal Cannula O2 Del Method O2 Flow Rate O2 Flow Rate 06/03/25 09:40 06/03/25 08:03 06/03/25 06:59 2 06/03/25 01:04 Nasal Cannula 1.5 06/02/25 23:28 2 Laboratory Results 06/03/25 07:05 06/03/25 07:05 Abnormal Lab Results 06/02/25 06/03/25 17:45 07:05 WBC 34.69 H* RBC 3.10 L Hgb 11.3 L Hct 31.6 L MCV 101.9 H MCH 36.5 H MCHC 35.8 RDW Std Deviation 55.3 H RDW Coeff of Annamarie 14.7 H Plt Count 126 L MPV 11.7 Immature Gran % (Auto) 2.7 Neut % (Auto) 93.1 Lymph % (Auto) 1.5 [place] % (Auto) 2.5 Eos % (Auto) 0.0 Baso % (Auto) 0.2 Neut # (Auto) 32.30 H Lymph # (Auto) 0.51 L [place] # (Auto) 0.87 H Eos # (Auto) 0.00 Baso # (Auto) 0.06 Immature Gran # (Auto) 0.95 H Absolute Nucleated RBC 0.11 Nucleated RBC % (auto) 0.3 Polychromasia 1+ Tear Drop Cells 1+ Sodium 132 L Potassium 4.5 Chloride 101 Carbon Dioxide 25 Anion Gap 6 BUN 33 H Creatinine 0.62 Est Cr Clr Drug Dosing 79.3 eGFR 96.03 BUN/Creatinine Ratio 53.2 H Glucose 167 H Calcium 9.8 Vitamin B12 > 1500 H Folate 5.26 L TSH 0.130 L Free T4 0.79 Urine Color Yellow Urine Appearance Clear Urine pH 5.5 Ur Specific Labelle 1.028 Urine Protein Trace H Urine Glucose (UA) 1+ H Urine Ketones Negative Urine Blood Negative Urine Nitrite Negative Urine Bilirubin Negative Urine Urobilinogen Negative Ur Leukocyte Esterase Negative Urine WBC (Auto) 0-5 Urine RBC (Auto) 3-5 H U Hyaline Cast (Auto) 3-5 H U Epithel Cells (Auto) 0-2 Urine Bacteria (Auto) None Seen Diagnostic Findings No recent imaging. PG Care Time/CCT Total # of Minutes Spent Total Time Spent with Patient: Total time spent is greater than 50% in coordination of care (as documented) at patient's floor/unit and/or counseling patient: Coding Level of Care Code 54367 SUB INP/OBS CARE 2/35MIN Diagnoses Acute hypoxic respiratory failure J96.01 COPD with emphysema J43.9 Lung mass R91.8 Primary adenocarcinoma of upper lobe of left lung C34.12
[2025-06-03 12:55] LABS: Chlamydia pneumoniae PCR Not Detected (NotDetected); Coronavirus 229E PCR Not Detected (NotDetected); Coronavirus CoV-2 (COVID19)PCR Not Detected (NotDetected); Coronavirus HKU1 PCR Not Detected (NotDetected); Coronavirus NL63 PCR Not Detected (NotDetected); Coronavirus OC43PCR Not Detected (NotDetected); Human Metapneumovirus PCR Not Detected (NotDetected); Parainfluenza Virus 1 PCR Not Detected (NotDetected); Parainfluenza Virus 2 PCR Not Detected (NotDetected); Parainfluenza Virus 3 PCR Not Detected (NotDetected); Parainfluenza Virus 4 PCR Not Detected (NotDetected); Respiratory Syncytial VirusPCR Not Detected (NotDetected); Rhinovirus/Enterovirus PCR Not Detected (NotDetected)
--- NOTE | 2025-06-03 13:58 | Pharmacy Report ---
Pharmacy PK ABX Note - Date of Service June 03, 2025 - Assessment and Plan Assessment 79 year old M started on vancomycin this AM. Previously on ctx/doxy for possible CAP. Leukocytosis worsening this AM - changed to vancomycin. PMHx significant for COPD, stage IV lung adenocarcinoma, former tobacco smoker. Patient on dexamethasone for brain and adrenal mets per notes. Blood cultures pending. Plan Vancomycin * Loading dose: 1500 mg IV x 1 * Maintenance dose: 1000 mg IV every 12 hours * Regimen is predicted to achieve target AUC/TERENCE of 400-600 mg/L.hr * Random level ordered tomorrow AM to assess dosing Pharmacy will continue to follow and will adjust dose/frequency as necessary. Thank you. Pharmacy has transitioned to AUC monitoring for vancomycin. AUC/TERENCE is the preferred PK/PD target and is associated with decreased risk of nephrotoxicity compared to traditional trough targets.
--- NOTE | 2025-06-03 16:35 | Hospitalist Progress Note ---
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 His evaluation is still pending, but he does re-demonstrate leukocytosis of 28.06 which has increased from prior, as well as H&H 11.7/34.3. Lactate elevated at 2.4, procal WNL. #Leukocytosis | hypothermia In setting of known carcinoma, also on dexamethasone at baseline. Received Cefazolin pre-op. Patient completed course of ceftriaxone and doxycycline while in the hospital. CBC trend: 28.06->25.73->26.00 -> 33.92 -> 34.69 Hypothermic at 33.3 C on the morning of 06/03 Additional dexamethasone 4 mg IV x 1 Renny hugger application Clinically, patient denies any changes in infectious symptoms other than "gen eralized fatigue", and so it is possible that this rise in blood count is secondary to dexamethasone use Blood cultures drawn on 06/02 are without growth to date Repeat CXR on 06/02 revealed no significant interval change BioFire negative Repeat UA negative Procalcitonin WNL CRP elevated at 2.94 Clinically, patient does not exhibit rashes, bruising, or open lesions on the skin on clinical exam While not infected appearing on exam, patient's recent port placement does remain a potential source of infection Given patient's medical frailty, will cover with empiric vancomycin 1500 mg IV q12h C. difficile ordered, pending #Acute hypoxic respiratory failure | stage IV adenocarcinoma of the lungs with cerebellar metastasis Multifactorial cause of hypoxia in setting of metastatic carcinoma, recent surgical intervention, possible dehydration, and potential pneumonia CXR revealed a patchy right lung opacity which could represent pneumonia; interstitial thickening suggestive of pulmonary edema or treatment related pneumonitis Continue Acetaminophen PRN fever/pain, morphine for severe pain Zofran prn N/V O2 prn with goal 88-93% -- No O2 at baseline Patient reportedly dropped to 82% on 2L NC while working with PT on 06/02 Attempt to ween supplemental O2 as tolerated Continuous pulse oximetry Antibiotic course was completed: Ceftriaxone 1 mg IV x 5 days completed on 05/31 Doxycycline 100 mg IV twice daily x 5 days completed on 05/31 Pulmonology consult appreciated Recent PFT showed moderate obstructive lung disease Continue Incruse Ellipta daily DuoNebs as needed Discussed with patient and patient's family; palliative care consult placed on 06/03 #Generalized weakness PT/OT recommendations appreciated Patient referred to [facility] Per [facility], family would need to provide targeted pill chemotherapy if he were to be excepted; IV chemotherapy would not be an option while at rehab Did discuss this with patient's , reports it would not be a problem to bring in the medication CM following #Oral candidiasis/thrush Nystatin 5 mL suspension QID x 10 days #Dysphagia Speech therapy consult appreciated Recommending small bites diet Aspiration/reflux precautions #S/p RIJ port insertion/Metastatic adenocarcinoma of lung/Cerebellar and adrenal gland metastasis Performed 05/26/2025, no apparent complications. No complaints per patient at this time. Lung CA dx 04/14/2025, with maria ines to brain and adrenal; previously complicated with cerebral edema. H/o COPD. Follows with heme/onc, radiation to brain then chemo to be started for lung CA; On dexamethasone po. General surgery consult appreciated #H/o stage IV colon CA- S/p chemo, radiation, and sx in 1996 #GERD- Pantoprazole - continue Dispo: Continued stay on MedSurg telemetry NOTE: Patient did receive SNF authorization for [facility] on 06/03. However, given his setbacks in the morning of 06/03 (hypothermia and extreme fatigue), do not feel like sending him to rehab today would be appropriate. Blood cultures still pending for suspected infectious etiology VTE Prophylaxis: SCDs Have been updating patient's (Bárbara) and patient's daughter (Cheyenne) throughout his hospital stay. Admission and Anticipated Discharge Date Admission Date: May 28, 2025 Supervising Physician Co-Signing Physician Notes Attending Attestation - Chart reviewed, care plan d/w JERONIMO Sanchez. I agree w/ the mueller components of his documentation. Blood cx's thus far negative. Leukocytosis persists. Source - pneumonia? Agree with palliative care consultation. Reg Madsen MD Subjective Mr. Fontenot continues to look incredibly fatigued with labored breathing. He is alert and oriented x 3, but does nod off to sleep throughout our conversation. He reports he is feeling about the same as he did yesterday in terms of strength. He feels incredibly tired, and has difficulty finding his breath. Additionally he has right abdominal pain with palpation. He did have a bowel movement earlier today which was brown/formed, but he reports that he usually has "diarrhea". He denies any blood in his stool. Additional history is obtained from patient's daughter (Cheyenne) at bedside. Daughter reports that he had difficulty eating earlier, and complained that after swallowing his chest would hurt. Long discussion with both patient and patient's daughter regarding palliative care (see ACP note) ROS: Patient Dors is generalized fatigue, right-sided abdominal pain, diarrhea yesterday, difficulty with deep breaths, and pleuritic CP. Patient denies active chest pain, SOB at rest, vomiting, or blood in the urine or stool. Review of Systems Review of Systems: See HPI above Physical Exam Physical Exam: General: Patient is lying in bed; lethargic non-toxic appearing; daughter at bedside; frail appearing; cooperative; SpO2 95% on 2L NC HEENT: normocephalic, atraumatic; no scleral icterus; PERRLA; patient exhibits white exudates on the oral pharynx bilaterally; vision intact; hard of hearing Neck: supple; no lymphadenopathy; trachea midline Skin: warm, dry without signs of tenting; no cyanosis; no rashes, bruising, lesions, or erythema noted CV: chest wall NTP; RRR; S1/S2 normal; pulses intact and symmetric at radial, DP, and PT Lungs: Labored breathing; symmetrical chest wall expansion; clear breath sounds across all lung pace w/o adventitious sounds; no wheezing ABD: Soft, NTP; BS present; no rebound/guarding; no distention MSK: no tics or fasciculations Neuro: A&Ox3; normal mood and affect; fluent speech; no focal deficits; sensation intact and symmetric in lower EXTR bilaterally Results & Data Results & Data Vital Signs (Past 12 Hours) Vital Signs Temp Pulse Resp BP Pulse Ox O2 Del Method O2 Flow Rate 06/03/25 15:26 36.3 C L 91 H 18 147/75 H 95 Nasal Cannula 2 06/03/25 10:56 36.3 C L 06/03/25 09:40 34.8 C L 06/03/25 08:03 33.3 C L 82 14 110/67 92 Nasal Cannula 06/03/25 07:30 Room Air 1 06/03/25 06:59 36.5 C 75 20 135/72 93 Nasal Cannula 2 PG Care Time/CCT Total # of Minutes Spent Total Time Spent with Patient: Total time spent is greater than 50% in coordination of care (as documented) at patient's floor/unit and/or counseling patient: Coding [place] [address] SUB INP/OBS CARE 3/50MIN Patient Type Established Medical Decision Making High Complexity Diagnoses Hypoxia R09.02 Weakness R53.1 Leukocytosis D72.829 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
--- NOTE | 2025-06-03 16:38 | Advance Care Plan Prog Note ---
Advanced Care Planning Note <Mirza Sanchez PA-C - Last Filed: 06/03/25 16:46> Date of Discussion June 03, 2025 ACP Discussion Diagnoses requiring ACP discussion: Non-small cell lung carcinoma with mets cerebellar metastasis A [id number] discussion with the patient and patient's daughter (Cheyenne) regarding the patient's advanced care planning took place during this hospitalization on the above date. The discussion included the explanation and discussion of advance directives and associated forms/documents, as well as the patient's current code status. We also discussed at length the patient's medical conditions (both acute and chronic), general prognosis, treatment options, and goals of care. The following summarizes the discussion: Goals of care conversation took place on 06/03. Patient has had a rapid decline over the past 2 months. Daughter reports that, as recently as March 2025, he was driving to pick her up from the airport. Now, he can barely get out of bed, and his new oxygen requirements are leading to significantly poor quality of life and difficulty with deep breaths. At this time, the patient would still like to move forward with chemotherapy upon discharge; however, the family is also open to discussing palliative care options. Patient reports that he would prefer to focus on his quality of life over his quality of life. Additionally, his daughter reports that they are currently working to get paperwork in place such as a POLST form, advanced directive, and an additional medical power of mortgage collector for the daughter (currently his is medical POA). When the patient was in the ICU recently, daughter also reports that they were thinking of transferring him to [place] for brain surgery. At that time, patient made it clear that, given his advanced age, medical frailty, and prognosis, he would not want any invasive measures done such as neurosurgery under any circumstances. Daughter is concerned that may have "missed their window" for medical capacity. Patient has been more confused recently, and has difficulty with understanding his current condition. His mentation appears to wax and wane. Provide education to daughter on what we look for with medical capacity, including things such as the ability to acknowledge their current diagnosis, acknowledge the prognosis, and repeat back the risks and benefits of certain treatments. I explained that, we will patient's medical capacity might continue to wax and wane with his current diagnosis of metastatic stage IV lung cancer. For instance, earlier in the week, the patient told me he was "unsure" if he had lung cancer; despite this, he was A&O x 3, and is usually able to convey his symptoms and how he is feeling. Family is open to a palliative care consult at this time, and are seeking additional resources for how to navigate home life after leaving the hospital. Status Resuscitation Status DNR/DNI No Resuscitation Total Time I spent a total of 20-30 minutes was spent on this discussion, including counseling, answering questions, and completing, if any, pertinent advanced care planning forms/documents. <Reg Madsen MD - Last Filed: 06/07/25 04:41> ACP Discussion Diagnoses requiring ACP discussion: Non-small cell lung carcinoma with mets cerebellar metastasis A [id number] discussion with the patient and patient's daughter (Cheyenne) regarding the patient's advanced care planning took place during this hospitalization on the above date. The discussion included the explanation and discussion of advance directives and associated forms/documents, as well as the patient's current code status. We also discussed at length the patient's medical conditions (both acute and chronic), general prognosis, treatment options, and goals of care. The following summarizes the discussion: Goals of care conversation took place on 06/03. Patient has had a rapid decline over the past 2 months. Daughter reports that, as recently as March 2025, he was driving to pick her up from the airport. Now, he can barely get out of bed, and his new oxygen requirements are leading to significantly poor quality of life and difficulty with deep breaths. At this time, the patient would still like to move forward with chemotherapy upon discharge; however, the family is also open to discussing palliative care options. Patient reports that he would prefer to focus on his quality of life over his quantity of life. Additionally, his da ughter reports that they are currently working to get paperwork in place such as a POLST form, advanced directive, and an additional medical power of mortgage collector for the daughter (currently his is medical POA). When the patient was in the ICU recently, daughter also reports that they were thinking of transferring him to [place] for brain surgery. At that time, patient made it clear that, given his advanced age, medical frailty, and prognosis, he would not want any invasive measures done such as neurosurgery under any circumstances. Daughter is concerned that may have "missed their window" for medical capacity. Patient has been more confused recently, and has difficulty with understanding his current condition. His mentation appears to wax and wane. Provide education to daughter on what we look for with medical capacity, including things such as the ability to acknowledge their current diagnosis, acknowledge the prognosis, and repeat back the risks and benefits of certain treatments. I explained that, we will patient's medical capacity might continue to wax and wane with his current diagnosis of metastatic stage IV lung cancer. For instance, earlier in the week, the patient told me he was "unsure" if he had lung cancer; despite this, he was A&O x 3, and is usually able to convey his symptoms and how he is feeling. Family is open to a palliative care consult at this time, and are seeking additional resources for how to navigate home life after leaving the hospital.
[2025-06-03] MEDS: VANCOMYCIN HCL / NSS 1,000 MG/270 ML BAG IV SCH (22:06)
--- NOTE | 2025-06-04 08:17 | Pharmacy Report ---
Pharmacy PK ABX Note - Date of Service June 04, 2025 - Assessment and Plan Assessment 06/04 * Random vancomycin level this AM ~14 mcg/ml - vancomycin dose associated with goal AUC/TERENCE therefore will continue current regimen. Blood cx negative x 24 hours 06/03 * 79 year old M started on vancomycin this AM. Previously on ctx/doxy for possible CAP. Leukocytosis worsening this AM - changed to vancomycin. PMHx significant for COPD, stage IV lung adenocarcinoma, former tobacco smoker. Patient on dexamethasone for brain and adrenal mets per notes. Blood cultures pending. Plan Vancomycin * Continue 1000 mg iv q 12 hours Pharmacy will continue to follow and will adjust dose/frequency as necessary. Thank you. Pharmacy has transitioned to AUC monitoring for vancomycin. AUC/TERENCE is the preferred PK/PD target and is associated with decreased risk of nephrotoxicity compared to traditional trough targets.
--- NOTE | 2025-06-04 09:03 | Palliative Care Consultation ---
Date of Consultation June 04, 2025 Assessment & Plan (1) Weakness generalized: (2) Dyspnea and respiratory abnormalities: (3) Advanced care planning/counseling discussion: A 60 min face to face ACP discussion was held at bedside with pt and his dtr Cheyenne earlier today. Medical issues to date reviewed. He initially presented a conviction "how do we really know this is even a cancer?" We reviewed his pathology results and prior d/w re cancer treatment plans with Dr. Gutierrez/med onc. He references his prior colon caner of 1996 and how treatment for that was easier. he states he wants to regain strength and to this end, he wants the trial of rehab but also a focus/emphasis on QOL. He states he is not ready for hospice, feels he still has goals/desires to achieve including returning home, [place] and using the new equipment he bought himself for his 78th birthday last year. Overall goal for rehab is to improve strength. We discussed risks/benefits of Tegresso and how dose may need adjusting if PS slides down further or med is not tolerated vs stopping it if side effects are severe/bad toxicities arise. Patient and dtr in agreement. Upon dc from rehab they are in agreement for referral to [facility] Transitional Care program called the [facility]. It is more than standard home health but less than hospice, and unlike hospice, it will not restrict or prohibit him from continuing some cancer directed therapies. Transitional care is a pre-hospice program designed to advanced illness patients the care they want at home and keep them out of the hospital. Transitional care addresses the needs of patients in a declining state of health who are not yet ready to enter hospice care. Patients may continue to receive life-prolonging treatments in additional to palliative care that focuses on comfort measures and pain relief. Studies demonstrate these Palliative therapies can have a positive effect on a patients mobility, happiness and overall quality of life. In Transitional care programs, nurses and other members of the home care and hospice team will regularly visit patients at home to teach them how to better manage their diseases, advance care planning and when necessary, end of life care. Providers will review and modify medication regimen to assure patient is not getting any unnecessary medications. Unlike hospice care, patients in this program don't need to have a prognosis of six months or less to live, and they can continue getting treatment that is aimed at curing their illnesses, not just treating symptoms. Transitional care programs are useful for patients who may be at or nearing the point where they starting to realize there disease is becoming more end stage/advanced and medical modalities have been maximized but no longer provide the relief they once did when patients' disease was not so severe. The overall goal of transitional care is to help our patients through this process so it's not filled with chaos. He was very much aligned with this plan and acknowledged if he worsens then transition to hospice at home would be his preference but until he hears he is not a candidate for cancer directed therapies, that choice is not one he is ready to make. Keira will follow him from my team next week, I am away at conference Saturday to . I am available on [employer] for urgent needs or you can call me cell, but I will not be checking Fjuul etc. (4) Palliative care by specialist: Introduced Palliative Medicine and explained our role in patient's care. Patient and/or family were receptive to palliative services for goals of care discussions. Reviewed we are different from hospice, a home health nurse visiting service. Plan As above Thank you for allowing us to participate in the ongoing care of this patient. Please page with any additional concerns. 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 he presented with weakness after insertion of port into RIJ on 05/26/2025, developed significant weakness and concerns for safety if going home. His leukocytosis of 28.06 has increased from prior, as well as H&H 11.7/34.3. Lactate elevated at 2.4, procal WNL. Admitting labs: CBC leukocytosis 28k, H/H 11.7/34.3; CMP Na 135, BUN 41, ratio 40, glucose 156; procal 0.46; lactate 2.4; PT/INR WNL; Ca 9.4; Mg 2.3; trop 11.6 Chest x-ray showed patchy right lung opacity which could represent pneumonia; interstitial thickening suggestive of pulmonary edema or treatment related pneumonitis. Patient started on doxycycline and ceftriaxone for possible pneumonia. Jules is seen at the bedside together with his daughter Cheyenne. He denies any severe pain but admits to intermittent dyspnea, generalized weakness, and general malaise. He has some mild nausea, but it is transient. He is very cold and is currently under a Renny hugger blanket.He he frequently needs repositioning and finds the bed uncomfortable. Allergies Allergy/AdvReac Type Severity Reaction Status Date / Time naproxen AdvReac Intermediate Headache Verified 05/26/25 13:25 apple AdvReac Diarrhea Verified 05/27/25 13:35 Home Medications Medication Instructions Recorded Confirmed Type clopidogrel 75 mg tablet 75 mg PO DAILY 10/12/19 05/26/25 History aspirin 81 mg tablet 81 mg PO Q2D 03/24/25 05/26/25 History acetaminophen 300 mg-codeine 30 mg 1 tab PO Q6H PRN Pain 04/06/25 05/26/25 History tablet acetaminophen 500 mg capsule 1,000 mg PO QID PRN Pain 04/06/25 05/26/25 History cyanocobalamin (vitamin B-12) 1,000 mcg PO DAILY 04/06/25 05/26/25 History 1,000 mcg tablet cholecalciferol (vitamin D3) 25 5,000 unit PO DAILY 04/07/25 05/26/25 History mcg (1,000 unit) tablet oxycodone 5 mg tablet 5 mg PO .Q4-6H PRN Pain 04/26/25 05/26/25 History dexamethasone 4 mg tablet 4 mg PO TID #120 tabs 04/28/25 05/26/25 Rx pantoprazole 40 mg tablet,delayed 40 mg PO DAILY #30 tabs 04/28/25 05/26/25 Rx release Patient History Medical History (Updated 06/04/25 @ 15:40 by Mirza Sanchez PA-C) Shortness of breath with activity and flight of stairs GERD (gastroesophageal reflux disease) Vertigo gets dizzy with standing Hemochromatosis follows with [facility] heme and receives monthly phlebotomy tx; heterozygous for H63D mutation CN palsy, bilateral pt unaware PAD (peripheral artery disease) 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 Jauregui History of bronchoscopy Family history of reaction to anesthesia daughter>"difficult sedating" History of colonoscopy (1996) History of colon resection (1996) 10/25 colon cancer History of tooth extraction H/O vascular surgery iliac artery stenting 2013 x2; iliac artery stenting 10/2024 [facility] Junior x2 Family History Brother Prostate cancer Father Colorectal cancer Aunt Cancer Colon Sister Breast cancer Mother Breast cancer Heart disease Grandmother Diabetes Social History Smoking Status: Former smoker Tobacco Type: Cigarettes Age Started Using Tobacco: 16; Age Quit Using Tobacco: 79; packs per day: 1; Smoking End Date: 4 mos ago; Second Hand Exposure: No; Do You Dip or Chew Tobacco: No; Tobacco Cessation Education Requested by Patient: No Hx Alcohol Use: Yes Alcohol type: wine Alcohol type Comment: daily Alcohol Intake Frequency: 4 or More x per/Week Hx Substance Use: No Preferred Language: Argentine Communication Ability: Effective Court Worker Required: No Beliefs That Will Affect Care: None marital status: Current Living Situation: Spouse current occupational status: retired How many Children do You have: 2 Other Information That Helps Us Care for You: No Feels Safe at Home: Yes Safety Concerns: Feels Safe At This Time Diet: regular during the past year weight has: decreased > 10 lbs Assistive Devices: Walker Review of Systems Review of Systems: All systems reviewed & are unremarkable except as noted in Subjective Physical Exam Physical Exam: Frail, cactifrail, Coptic, elderly male. Semi reclined in bed. Moderate distress. Color is very pale. He is intermittently drifting off and mildly confused at times. Speech is sometimes rambling. By temporal wasting is noted. Pupils are equal, round, reactive to light. Fairing is pink, [place] borderline, [place] are slightly dry.He he is wearing nasal oxygen. Neck is supple and without strider. I did not appreciate thyromegaly. Respiratory effort is intermittently increased. There is use of accessory muscles noted. Diminished overall. No gross wheezing appreciated. Heart tones S1 S2. Tachycardic at 1:10. Abdomen is scaphoid. Non-tender to palpation. Generalized weakness to all extremities.No No significant edema. He is awake and alert to self and place but he does drift off at times and becomes mildly confused. He easily reorient. He is often rambling off topic but again can be easily redirected. Results & Data Vital Signs (Past 12 Hours) Vital Signs Temp Pulse Pulse Resp BP Pulse Ox Pulse Ox 06/04/25 07:54 35.6 C L 92 H 16 114/68 93 06/04/25 03:18 94 06/03/25 23:24 36.3 C L 90 20 130/70 92 O2 Del Method O2 Del Method O2 Flow Rate O2 Flow Rate 06/04/25 07:54 Nasal Cannula 3 06/04/25 03:18 Nasal Cannula 3 06/03/25 23:24 Nasal Cannula 2 Laboratory Results 06/04/25 06/04/25 06/03/25 Range/Units 09:20 05:03 Unknown WBC 35.59 H* (4.8-10.8) K/ul RBC 3.10 L (4.70-6.10) M/uL Hgb 11.0 L (14.0-18.0) g/dl Hct 32.0 L (42.0-52.0) % MCV 103.2 H (80.0-100.0) fL MCH 35.5 H (25.0-34.0) pg MCHC 34.4 (32.0-36.0) g/dL RDW Std Deviation 56.9 H (36.4-46.3) fL RDW Coeff of Annamarie 15.0 H (11.5-14.5) % Plt Count 116 L (130-400) K/uL MPV 12.2 (9.4-12.4) fL Immature Gran % (Auto) 2.1 % Neut % (Auto) 93.7 % Lymph % (Auto) 1.6 % [place] % (Auto) 2.4 % Eos % (Auto) 0.0 % Baso % (Auto) 0.2 % Neut # (Auto) 33.34 H (1.40-6.50) K/uL Lymph # (Auto) 0.56 L (1.20-3.40) K/uL [place] # (Auto) 0.85 H (0.11-0.59) K/uL Eos # (Auto) 0.00 (0.00-0.50) K/uL Baso # (Auto) 0.08 (0.00-0.20) K/uL Immature Gran # (Auto) 0.76 H (0.01-0.20) K/uL Absolute Nucleated RBC 0.14 H (0.00-0.12) K/uL Nucleated RBC % (auto) 0.4 % Toxic Vacuolation Polychromasia 1+ Tear Drop Cells 1+ Peripher Smr Path Cons Sodium 132 L (136-145) mmol/L Potassium 4.3 (3.5-5.1) mmol/L Chloride 102 (98-107) mmol/L Carbon Dioxide 23 (21-32) mmol/L Anion Gap 7 (3-11) BUN 30 H (6-23) mg/dl Creatinine 0.60 (0.6-1.4) mg/dl Est Cr Clr Drug Dosing 81.9 ml/min eGFR 96.98 BUN/Creatinine Ratio 50.0 H (10-20) Glucose 185 H (70-99(Fasting)) mg/dl Fasting Glucose (70-99) mg/dl Calcium 10.0 (8.6-10.3) mg/dl Total Bilirubin (0.2-1.0) mg/dl AST (13-39) U/L ALT (7-52) U/L Alkaline Phosphatase (34-104) U/L C-Reactive Protein (0-0.5) mg/dl B-Natriuretic Peptide (0-100) pg/ml Total Protein (6.0-8.3) gm/dl Albumin (3.4-5.0) gm/dl Globulin (2.5-4.0) gm/dl Albumin/Globulin Ratio (0.9-2) Vitamin B12 (180-914) pg/ml Folate (>5.38) ng/ml Procalcitonin (0-0.5) ng/ml TSH (0.300-4.500) uIu/ml Free T4 (0.61-1.60) ng/dl Urine Color Urine Appearance (Clear) Urine pH (4.5-7.5) Ur Specific [place] (1.000-1.030) Urine Protein (Negative) Urine Glucose (UA) (Negative) Urine Ketones (Negative) Urine Blood (Negative) Urine Nitrite (Negative) Urine Bilirubin (Negative) Urine Urobilinogen (Negative) Ur Leukocyte Esterase (Negative) Urine WBC (Auto) (0-5) /hpf Urine RBC (Auto) (0-2) /hpf U Hyaline Cast (Auto) (0-2) /lpf U Epithel Cells (Auto) (0-2) /hpf Urine Bacteria (Auto) (None Seen) Nasal Screen MRSA (PCR) (Negative) Stl C. diff Tox B Gene TNP Stl C. diff 027-NAP1-BI TNP Random Vancomycin 14.8 (10-20) mcg/ml Adenovirus (PCR) (NotDetected) B. pertussis DNA (PCR) (NotDetected) B.parapertussis DNA PCR (NotDetected) C. pneumoniae DNA (PCR) (NotDetected) Coronavirus OC43 (PCR) (NotDetected) Coronavirus HKU1 (PCR) (NotDetected) Coronavirus 229E (PCR) (NotDetected) SARS-CoV-2 (PCR) (NotDetected) Coronavirus NL63 (PCR) (NotDetected) Human Metapneumovir PCR (NotDetected) Influenza Type A (PCR) (NotDetected) Influenza Type B (PCR) (NotDetected) M. pneumoniae (PCR) (NotDetected) Parainfluenza 1 (PCR) (NotDetected) Parainfluenza 2 (PCR) (NotDetected) Parainfluenza 3 (PCR) (NotDetected) Parainfluenza 4 (PCR) (NotDetected) RSV (PCR) (NotDetected) Entero/Rhino (PCR) (NotDetected) 06/03/25 06/03/25 06/03/25 Range/Units 15:20 11:45 07:05 WBC 34.69 H* (4.8-10.8) K/ul RBC 3.10 L (4.70-6.10) M/uL Hgb 11.3 L (14.0-18.0) g/dl Hct 31.6 L (42.0-52.0) % MCV 101.9 H (80.0-100.0) fL MCH 36.5 H (25.0-34.0) pg MCHC 35.8 (32.0-36.0) g/dL RDW Std Deviation 55.3 H (36.4-46.3) fL RDW Coeff of Annamarie 14.7 H (11.5-14.5) % Plt Count 126 L (130-400) K/uL MPV 11.7 (9.4-12.4) fL Immature Gran % (Auto) 2.7 % Neut % (Auto) 93.1 % Lymph % (Auto) 1.5 % [place] % (Auto) 2.5 % Eos % (Auto) 0.0 % Baso % (Auto) 0.2 % Neut # (Auto) 32.30 H (1.40-6.50) K/uL Lymph # (Auto) 0.51 L (1.20-3.40) K/uL [place] # (Auto) 0.87 H (0.11-0.59) K/uL Eos # (Auto) 0.00 (0.00-0.50) K/uL Baso # (Auto) 0.06 (0.00-0.20) K/uL Immature Gran # (Auto) 0.95 H (0.01-0.20) K/uL Absolute Nucleated RBC 0.11 (0.00-0.12) K/uL Nucleated RBC % (auto) 0.3 % Toxic Vacuolation Polychromasia 1+ Tear Drop Cells 1+ Peripher Smr Path Cons Sodium 132 L (136-145) mmol/L Potassium 4.5 (3.5-5.1) mmol/L Chloride 101 (98-107) mmol/L Carbon Dioxide 25 (21-32) mmol/L Anion Gap 6 (3-11) BUN 33 H (6-23) mg/dl Creatinine 0.62 (0.6-1.4) mg/dl Est Cr Clr Drug Dosing 79.3 ml/min eGFR 96.03 BUN/Creatinine Ratio 53.2 H (10-20) Glucose 167 H (70-99(Fasting)) mg/dl Fasting Glucose (70-99) mg/dl Calcium 9.8 (8.6-10.3) mg/dl Total Bilirubin (0.2-1.0) mg/dl AST (13-39) U/L ALT (7-52) U/L Alkaline Phosphatase (34-104) U/L C-Reactive Protein (0-0.5) mg/dl B-Natriuretic Peptide (0-100) pg/ml Total Protein (6.0-8.3) gm/dl Albumin (3.4-5.0) gm/dl Globulin (2.5-4.0) gm/dl Albumin/Globulin Ratio (0.9-2) Vitamin B12 > 1500 H (180-914) pg/ml Folate 5.26 L (>5.38) ng/ml Procalcitonin (0-0.5) ng/ml TSH 0.130 L (0.300-4.500) uIu/ml Free T4 0.79 (0.61-1.60) ng/dl Urine Color Urine Appearance (Clear) Urine pH (4.5-7.5) Ur Specific [place] (1.000-1.030) Urine Protein (Negative) Urine Glucose (UA) (Negative) Urine Ketones (Negative) Urine Blood (Negative) Urine Nitrite (Negative) Urine Bilirubin (Negative) Urine Urobilinogen (Negative) Ur Leukocyte Esterase (Negative) Urine WBC (Auto) (0-5) /hpf Urine RBC (Auto) (0-2) /hpf U Hyaline Cast (Auto) (0-2) /lpf U Epithel Cells (Auto) (0-2) /hpf Urine Bacteria (Auto) (None Seen) Nasal Screen MRSA (PCR) Negative (Negative) Stl C. diff Tox B Gene Stl C. diff 027-NAP1-BI Random Vancomycin (10-20) mcg/ml Adenovirus (PCR) Not Detected (NotDetected) B. pertussis DNA (PCR) Not Detected (NotDetected) B.parapertussis DNA PCR Not Detected (NotDetected) C. pneumoniae DNA (PCR) Not Detected (NotDetected) Coronavirus OC43 (PCR) Not Detected (NotDetected) Coronavirus HKU1 (PCR) Not Detected (NotDetected) Coronavirus 229E (PCR) Not Detected (NotDetected) SARS-CoV-2 (PCR) Not Detected (NotDetected) Coronavirus NL63 (PCR) Not Detected (NotDetected) Human Metapneumovir PCR Not Detected (NotDetected) Influenza Type A (PCR) Not Detected (NotDetected) Influenza Type B (PCR) Not Detected (NotDetected) M. pneumoniae (PCR) Not Detected (NotDetected) Parainfluenza 1 (PCR) Not Detected (NotDetected) Parainfluenza 2 (PCR) Not Detected (NotDetected) Parainfluenza 3 (PCR) Not Detected (NotDetected) Parainfluenza 4 (PCR) Not Detected (NotDetected) RSV (PCR) Not Detected (NotDetected) Entero/Rhino (PCR) Not Detected (NotDetected) 06/02/25 06/02/25 05/31/25 Range/Units 17:45 07:08 07:18 WBC 33.92 H* 26.00 H (4.8-10.8) K/ul RBC 3.08 L 2.80 L (4.70-6.10) M/uL Hgb 11.0 L 10.3 L (14.0-18.0) g/dl Hct 31.5 L 28.8 L (42.0-52.0) % MCV 102.3 H 102.9 H (80.0-100.0) fL MCH 35.7 H 36.8 H (25.0-34.0) pg MCHC 34.9 35.8 (32.0-36.0) g/dL RDW Std Deviation 55.6 H 55.2 H (36.4-46.3) fL RDW Coeff of Annamarie 15.0 H 14.7 H (11.5-14.5) % Plt Count 132 138 (130-400) K/uL MPV 11.7 11.7 (9.4-12.4) fL Immature Gran % (Auto) 2.4 4.8 % Neut % (Auto) 92.4 89.5 % Lymph % (Auto) 2.0 2.4 % [place] % (Auto) 3.0 3.1 % Eos % (Auto) 0.0 0.0 % Baso % (Auto) 0.2 0.2 % Neut # (Auto) 31.36 H 23.30 H (1.40-6.50) K/uL Lymph # (Auto) 0.67 L 0.62 L (1.20-3.40) K/uL [place] # (Auto) 1.01 H 0.80 H (0.11-0.59) K/uL Eos # (Auto) 0.00 0.00 (0.00-0.50) K/uL Baso # (Auto) 0.06 0.04 (0.00-0.20) K/uL Immature Gran # (Auto) 0.82 H 1.24 H (0.01-0.20) K/uL Absolute Nucleated RBC 0.14 H 0.12 (0.00-0.12) K/uL Nucleated RBC % (auto) 0.4 0.5 % Toxic Vacuolation 1+ Polychromasia Tear Drop Cells Peripher Smr Path Cons Sodium 131 L 133 L (136-145) mmol/L Potassium 4.5 4.2 (3.5-5.1) mmol/L Chloride 101 103 (98-107) mmol/L Carbon Dioxide 24 24 (21-32) mmol/L Anion Gap 6 6 (3-11) BUN 33 H 29 H (6-23) mg/dl Creatinine 0.52 L 0.54 L (0.6-1.4) mg/dl Est Cr Clr Drug Dosing 94.6 91.0 ml/min eGFR 101.26 100.12 BUN/Creatinine Ratio 63.5 H (10-20) Glucose 133 H (70-99(Fasting)) mg/dl Fasting Glucose 154 H (70-99) mg/dl Calcium 9.9 9.8 (8.6-10.3) mg/dl Total Bilirubin 0.4 (0.2-1.0) mg/dl AST 19 (13-39) U/L ALT 42 (7-52) U/L Alkaline Phosphatase 103 (34-104) U/L C-Reactive Protein 2.94 H (0-0.5) mg/dl B-Natriuretic Peptide 98 (0-100) pg/ml Total Protein 4.5 L (6.0-8.3) gm/dl Albumin 2.3 L (3.4-5.0) gm/dl Globulin 2.2 L (2.5-4.0) gm/dl Albumin/Globulin Ratio 1.0 (0.9-2) Vitamin B12 (180-914) pg/ml Folate (>5.38) ng/ml Procalcitonin 0.09 (0-0.5) ng/ml TSH (0.300-4.500) uIu/ml Free T4 (0.61-1.60) ng/dl Urine Color Yellow Urine Appearance Clear (Clear) Urine pH 5.5 (4.5-7.5) Ur Specific [place] 1.028 (1.000-1.030) Urine Protein Trace H (Negative) Urine Glucose (UA) 1+ H (Negative) Urine Ketones Negative (Negative) Urine Blood Negative (Negative) Urine Nitrite Negative (Negative) Urine Bilirubin Negative (Negative) Urine Urobilinogen Negative (Negative) Ur Leukocyte Esterase Negative (Negative) Urine WBC (Auto) 0-5 (0-5) /hpf Urine RBC (Auto) 3-5 H (0-2) /hpf U Hyaline Cast (Auto) 3-5 H (0-2) /lpf U Epithel Cells (Auto) 0-2 (0-2) /hpf Urine Bacteria (Auto) None Seen (None Seen) Nasal Screen MRSA (PCR) (Negative) Stl C. diff Tox B Gene Stl C. diff 027-NAP1-BI Random Vancomycin (10-20) mcg/ml Adenovirus (PCR) (NotDetected) B. pertussis DNA (PCR) (NotDetected) B.parapertussis DNA PCR (NotDetected) C. pneumoniae DNA (PCR) (NotDetected) Coronavirus OC43 (PCR) (NotDetected) Coronavirus HKU1 (PCR) (NotDetected) Coronavirus 229E (PCR) (NotDetected) SARS-CoV-2 (PCR) (NotDetected) Coronavirus NL63 (PCR) (NotDetected) Human Metapneumovir PCR (NotDetected) Influenza Type A (PCR) (NotDetected) Influenza Type B (PCR) (NotDetected) M. pneumoniae (PCR) (NotDetected) Parainfluenza 1 (PCR) (NotDetected) Parainfluenza 2 (PCR) (NotDetected) Parainfluenza 3 (PCR) (NotDetected) Parainfluenza 4 (PCR) (NotDetected) RSV (PCR) (NotDetected) Entero/Rhino (PCR) (NotDetected) 05/30/25 05/29/25 Range/Units 06:44 06:31 WBC 25.73 H 24.93 H (4.8-10.8) K/ul RBC 2.89 L 2.64 L (4.70-6.10) M/uL Hgb 10.3 L 9.6 L (14.0-18.0) g/dl Hct 29.9 L 27.4 L (42.0-52.0) % MCV 103.5 H 103.8 H (80.0-100.0) fL MCH 35.6 H 36.4 H (25.0-34.0) pg MCHC 34.4 35.0 (32.0-36.0) g/dL RDW Std Deviation 56.3 H 55.8 H (36.4-46.3) fL RDW Coeff of Annamarie 14.8 H 14.7 H (11.5-14.5) % Plt Count 144 140 (130-400) K/uL MPV 11.6 11.0 (9.4-12.4) fL Immature Gran % (Auto) 4.5 1.5 % Neut % (Auto) 90.4 93.2 % Lymph % (Auto) 2.0 2.0 % [place] % (Auto) 2.9 3.2 % Eos % (Auto) 0.0 0.0 % Baso % (Auto) 0.2 0.1 % Neut # (Auto) 23.24 H 23.23 H (1.40-6.50) K/uL Lymph # (Auto) 0.51 L 0.50 L (1.20-3.40) K/uL [place] # (Auto) 0.75 H 0.80 H (0.11-0.59) K/uL Eos # (Auto) 0.00 0.00 (0.00-0.50) K/uL Baso # (Auto) 0.06 0.03 (0.00-0.20) K/uL Immature Gran # (Auto) 1.17 H 0.37 H (0.01-0.20) K/uL Absolute Nucleated RBC 0.13 H 0.07 (0.00-0.12) K/uL Nucleated RBC % (auto) 0.5 0.3 % Toxic Vacuolation Polychromasia Tear Drop Cells Peripher Smr Path Cons Sodium 132 L 133 L (136-145) mmol/L Potassium 4.3 4.1 (3.5-5.1) mmol/L Chloride 101 103 (98-107) mmol/L Carbon Dioxide 24 25 (21-32) mmol/L Anion Gap 7 5 (3-11) BUN 28 H 29 H (6-23) mg/dl Creatinine 0.58 L 0.76 (0.6-1.4) mg/dl Est Cr Clr Drug Dosing 84.8 64.7 ml/min eGFR 97.98 90.30 BUN/Creatinine Ratio (10-20) Glucose (70-99(Fasting)) mg/dl Fasting Glucose 152 H 142 H (70-99) mg/dl Calcium 9.8 9.8 (8.6-10.3) mg/dl Total Bilirubin 0.4 0.5 (0.2-1.0) mg/dl AST 23 22 (13-39) U/L ALT 42 36 (7-52) U/L Alkaline Phosphatase 106 H 99 (34-104) U/L C-Reactive Protein (0-0.5) mg/dl B-Natriuretic Peptide (0-100) pg/ml Total Protein 4.7 L 4.6 L (6.0-8.3) gm/dl Albumin 2.4 L 2.3 L (3.4-5.0) gm/dl Globulin 2.3 L 2.3 L (2.5-4.0) gm/dl Albumin/Globulin Ratio 1.0 1.0 (0.9-2) Vitamin B12 (180-914) pg/ml Folate (>5.38) ng/ml Procalcitonin (0-0.5) ng/ml TSH (0.300-4.500) uIu/ml Free T4 (0.61-1.60) ng/dl Urine Color Urine Appearance (Clear) Urine pH (4.5-7.5) Ur Specific [place] (1.000-1.030) Urine Protein (Negative) Urine Glucose (UA) (Negative) Urine Ketones (Negative) Urine Blood (Negative) Urine Nitrite (Negative) Urine Bilirubin (Negative) Urine Urobilinogen (Negative) Ur Leukocyte Esterase (Negative) Urine WBC (Auto) (0-5) /hpf Urine RBC (Auto) (0-2) /hpf U Hyaline Cast (Auto) (0-2) /lpf U Epithel Cells (Auto) (0-2) /hpf Urine Bacteria (Auto) (None Seen) Nasal Screen MRSA (PCR) (Negative) Stl C. diff Tox B Gene Stl C. diff 027-NAP1-BI Random Vancomycin (10-20) mcg/ml Adenovirus (PCR) (NotDetected) B. pertussis DNA (PCR) (NotDetected) B.parapertussis DNA PCR (NotDetected) C. pneumoniae DNA (PCR) (NotDetected) Coronavirus OC43 (PCR) (NotDetected) Coronavirus HKU1 (PCR) (NotDetected) Coronavirus 229E (PCR) (NotDetected) SARS-CoV-2 (PCR) (NotDetected) Coronavirus NL63 (PCR) (NotDetected) Human Metapneumovir PCR (NotDetected) Influenza Type A (PCR) (NotDetected) Influenza Type B (PCR) (NotDetected) M. pneumoniae (PCR) (NotDetected) Parainfluenza 1 (PCR) (NotDetected) Parainfluenza 2 (PCR) (NotDetected) Parainfluenza 3 (PCR) (NotDetected) Parainfluenza 4 (PCR) (NotDetected) RSV (PCR) (NotDetected) Entero/Rhino (PCR) (NotDetected) Diagnostic Findings Chest X-Ray 05/26/25 15:20 XR chest 1V portable HISTORY: 79 years-old Male post op port placement status post placement of a right IJ Pbchdq-r-Hhty catheter COMPARISON: Chest radiograph 04/26/2025, PET CT 04/22/2025 TECHNIQUE: AP view of the chest FINDINGS: Emphysema with left upper lobe mass redemonstrated. Ill-defined interstitial and alveolar opacities in the right midlung are new from prior. Pulmonary vascular congestion. No pneumothorax or pleural effusion. Right IJ Onceds-h-Kdme catheter distal tip noted within the expected location of the mid SVC. IMPRESSION: 1. Status post placement of a right IJ Tbovlz-b-Fcco catheter. No postprocedural pneumothorax. 2. Emphysema with pulmonary vascular congestion. 3. Interval development of ill-defined right mid lung opacities which may represent asymmetric pulmonary edema versus pneumonitis. 4. Large left upper lobe mass redemonstrated. ACT 112: Negative or not required by law. The above report was generated using voice recognition software. It may contain grammatical, syntax or spelling errors. Electronically signed by: Carlos Brizuela M.D. 05/26/2025 3:[address] 05/27/25 10:14 CT SCAN OF THE BRAIN WITHOUT IV CONTRAST CLINICAL HISTORY: Weakness COMPARISON STUDY: CT scan dated 05/27/2025, MRI the brain dated 04/02/2025 TECHNIQUE: Unenhanced axial CT scan of the brain was performed from the vertex to the skull base. A dose lowering technique was utilized adhering to the principles of ALARA. CT DOSE: 703.85 mGy.cm FINDINGS: There is no CT evidence of acute cortical infarction. There is no hydrocephalus. There is no evidence of acute intracranial hemorrhage. There are patchy white matter hypodensities, likely on a small vessel basis. There is a 15 mm hypodensity within the right cerebral hemisphere just beneath tentorium. This appears smaller than on the prior CT scan, and likely represents residual edema status post treatment of cerebellar metastatic disease. There is a stable hyperdense 8 mm nodule within the right superior parafalcine region. IMPRESSION: 1. Interval decrease in the size of the previously described right cerebellar mass with surrounding edema. Resolution of the mass effect on the brainstem and fourth ventricle. 2. No evidence of acute hemorrhage. No evidence of hydrocephalus. ACT 112: Negative or not required by law. Electronically signed by: Antonio Lyons M.D. 05/27/2025 12:07 PM Chest X-Ray 05/27/25 12:18 XR chest 1V portable CLINICAL HISTORY: O2 requirement COMPARISON STUDY: 05/26/2025 FINDINGS: The heart is normal in size. A right-sided A-Port catheter is visualized. There are progressive airspace opacities within the right mid to upper lung zone suggestive of a progressive pneumonia. There is a persistent 12 cm left upper lobe mass. There is mild elevation of interstitium suggesting mild pulmonary vascular congestion. There are no significant pleural effusions. There is no pneumothorax. IMPRESSION: 1. Redemonstration of a 12 cm left upper lobe pulmonary mass 2. Progressive airspace opacities within the right mid to upper lung zone, likely representing a progressive pneumonia. 3. Mild elevation of the interstitium suggesting mild pulmonary vascular congestion ACT 112: Negative or not required by law. Electronically signed by: Antonio Lyons M.D. 05/27/2025 2:43 PM Chest X-Ray 05/29/25 10:46 XR chest 1V portable CLINICAL HISTORY: Chest pain. COMPARISON STUDY: Chest radiograph May 27, 2025. PET/CT April 22, 2025. FINDINGS: Right internal jugular central line remains in place. Large left upper lobe mass is again noted. There is no pneumothorax or pleural effusion. Diffuse interstitial thickening and patchy right mid to upper lung airspace opacities have progressed. A left fifth rib lytic lesion is again noted. Cardiomediastinal silhouette is stable. IMPRESSION: 1. Demonstration of the left upper lobe mass. 2. Increase in interstitial thickening suggestive of pulmonary edema. 3. Patchy right lung opacities which could represent pneumonia, alveolar pulmonary edema or treatment related pneumonitis. ACT 112: Negative or not required by law. Electronically signed by: Aureliano Caldera M.D. 05/29/2025 11:53 AM Chest X-Ray 06/02/25 07:00 EXAM: XR chest 1V portable CLINICAL HISTORY: f/u TECHNIQUE: An X-ray image of the chest was obtained in the anteroposterior (AP) projection. COMPARISON: 05/29/2025. FINDINGS: The right chemoport tip is located at the cavoatrial junction. Pulmonary Parenchyma: Nonhomogeneous airspace shadowing is seen in the left upper zone. Reticular shadowing is seen in the bilateral mid and lower zones. There is no evidence of pleural effusion or pleural thickening. Heart and Mediastinum: The size and shape of the heart are normal. There is no hilar or mediastinal lymphadenopathy. Bony Thorax: The thoracic spine shows marked degenerative changes in the form of osteophytosis, endplate sclerosis, and multilevel reduced disc heights. The bony thorax appears intact without fractures. Soft Tissues: The soft tissues overlying the chest wall are unremarkable. IMPRESSION: 1. Interval stability of the right chemoport with tip at the cavoatrial junction. 2. Interval stability of inhomogeneous airspace shadowing in the left upper lobe, likely neoplastic versus infective. 3. Interval stability of bilateral mid and lower zones reticular shadowing. 4. No significant interval changes. Electronically signed by Junior Monteiro 06-02-2025 08:17 AM PG Care Time/CCT Total # of Minutes Spent Total Time Spent with Patient: Total time spent is greater than 50% in coordination of care (as documented) at patient's floor/unit and/or counseling patient: I spent 120 minutes overall addressing this case: 15 min in medical data review/discussion with referring provider(s) and/or preparation for the visit 20 min in direct interaction with the patient/exam 60 min in Advance Care Planning/Goals of Care discussions as detailed above in note (must be >16min) 10 min in subsequent review and synthesis of assessment and plan 15 min communicating with other providers regarding the jonathan noriega's case: primary tea, care mgt, nursing, oncology nursing team Advanced Care Planning [id number] Advanced Care Planning 30 Min 33796 Advanced Care Planning Additional 30 [place] [address] IN/OBS CONSULT LVL 4,60M (25 - SIGNIFICANT, SEPARATELY IDENTIFIABLE ) Patient Type New Medical Decision Making High Complexity Diagnoses Weakness generalized R53.1 Dyspnea and respiratory abnormalities R06.00; R06.89 Advanced care planning/counseling discussion Z71.89 Palliative care by specialist Z51.5 Additional Codes Advanced Care Planning - 39690 Advanced Care Planning 30 Min: 92431 Advanced Care Planning 30 Min ([id number]) Advanced Care Planning - 60996 Advanced Care Planning Additional 30 Min: 76724 Advanced Care Planning Additional 30 Min ([id number]) Comment [id number], [id number]
[2025-06-04 09:45] LABS: Hematocrit (blood only) 32.0 % (42.0-52.0); Hemoglobin 11.0 g/dl (14.0-18.0); Mean Corpuscular Hemoglobin 35.5 pg (25.0-34.0); Mean Corpuscular Volume 103.2 fL (80.0-100.0); Platelet Count 116 K/uL (130-400); RDW Standard Deviation 56.9 fL (36.4-46.3); Red Blood Count 3.10 M/uL (4.70-6.10); White Blood Count 35.59 K/ul (4.8-10.8)
[2025-06-04 09:56] LABS: Anion Gap 7.0 (3-11); Blood Urea Nitrogen 30.0 mg/dl (6-23); Calcium 10.0 mg/dl (8.6-10.3); Carbon Dioxide 23.0 mmol/L (21-32); Chloride 102.0 mmol/L (98-107); Creatinine Clr Calc Pharmacy 81.9 ml/min; Glucose 185.0 mg/dl (70-99(Fasting)); Potassium 4.3 mmol/L (3.5-5.1); Sodium 132.0 mmol/L (136-145)
[2025-06-04 10:07] LABS: Immature Granulocytes # (auto) 0.76 K/uL (0.01-0.20); Immature Granulocytes % (auto) 2.1 %; Polychromasia 1+; Tear Drop Cells 1+
[2025-06-04] MEDS: FOLIC ACID 1 MG TAB PO SCH (10:46)
--- NOTE | 2025-06-04 12:03 | Hospitalist Progress Note ---
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 His evaluation is still pending, but he does re-demonstrate leukocytosis of 28.06 which has increased from prior, as well as H&H 11.7/34.3. Lactate elevated at 2.4, procal WNL. #Leukocytosis | recurrent hypothermia | suspected adrenal insufficiency In setting of known carcinoma, also on dexamethasone at baseline. Received Cefazolin pre-op. Patient completed course of ceftriaxone and doxycycline while in the hospital. CBC trend: 28.06->25.73->26.00 -> 33.92 -> 34.69 -> 35.59 Recurrent episodes of hypothermic on 06/03 and 06/04 Additional dexamethasone 4 mg IV x 1 Stress dose steroids PRN Renny hugger application Clinically, patient denies any changes in infectious symptoms other than "generalized fatigue", and so it is possible that this rise in blood count is secondary to dexamethasone use TSH low at 0.130, but Free T4 WNL A/P CT ordered on 06/04 revealed progression of pulmonary and adrenal metastasis; no acute intra-abdominal abnormalities Peripheral blood smear ordered on 06/04 06/02 BCx show NGTD on 06/04 Repeat CXR revealed no significant interval changes BioFire negative Repeat UA negative Procalcitonin WNL Patient noted diarrhea, but unable to obtain C. difficile testing as it is now formed CRP elevated at 2.94 Clinically, patient does not exhibit rashes, bruising, or open lesions on the skin on clinical exam ? 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 CXR revealed a patchy right lung opacity which could represent pneumonia; interstitial thickening suggestive of pulmonary edema or treatment related pneumonitis Antibiotic course was completed: Ceftriaxone 1 mg IV x 5 days completed on 05/31 Doxycycline 100 mg IV twice daily x 5 days completed on 05/31 Supplemental O2 PRN with goal 88-93% -- No O2 at baseline Patient reportedly dropped to 82% on 2L NC while working with PT on 06/02 Attempt to ween supplemental O2 as tolerated Continuous pulse oximetry Continue Acetaminophen PRN fever/pain Pulmonology consult appreciated Recent PFT showed moderate obstructive lung disease Continue Incruse Ellipta daily DuoNebs as needed Discussed with patient and patient's family; palliative care consult appreciated Family would still like to try pill targeted chemotherapy (Tagrisso) when possible Will touch base with Oncology about optimal time to initiate therapy #Poor p.o. intake | dehydration Clinically dry on exam Lactated ringer at 80mL/hr x 2 L #Thrombocytopenia Platelet count downtrending (196 -> 116); continue to monitor #Generalized weakness PT/OT recommendations appreciated Patient referred to [facility] Per [facility], family would need to provide targeted pill chemotherapy if he were to be excepted; IV chemotherapy would not be an option while at rehab Did discuss this with patient's , reports it would not be a problem to bring in the medication CM following #Oral candidiasis/thrush Nystatin 5 mL suspension QID x 10 days #Dysphagia Speech therapy consult appreciated Recommending small bites diet Aspiration/reflux precautions #S/p RIJ port insertion/Metastatic adenocarcinoma of lung/Cerebellar and adrenal gland metastasis Performed 05/26/2025, no apparent complications. No complaints per patient at this time. Lung CA dx 04/14/2025, with maria ines to brain and adrenal; previously complicated with cerebral edema. H/o COPD. Follows with heme/onc, radiation to brain then chemo to be started for lung CA; On dexamethasone po. General surgery consult appreciated #H/o stage IV colon CA- S/p chemo, radiation, and sx in 1996 #GERD- Pantoprazole - continue Dispo: Continued stay on MedSurg telemetry NOTE: Patient did receive [facility] authorization for [facility] on 06/03. However, given his setbacks on 06/03 and 06/04 (hypothermia and extreme fatigue), do not feel like sending him to rehab at this time would be appropriate. Continue workup for infectious etiology VTE Prophylaxis: SCDs Have been updating patient's (Bárbara) and patient's daughter (Cheyenne) throughout his hospital stay. Admission and Anticipated Discharge Date Admission Date: May 28, 2025 Supervising Physician Co-Signing Physician Notes Attending Attestation - Chart reviewed, care plan d/w PA Mirza Sanchez. I agree w/ the mueller components of his documentation. Appreciate palliative care consultation. Reg Madsen MD Subjective Mr. Fontenot continues to show signs of decline. He reports that today he is feeling "lousy", and he is feeling incredibly weak. He did have a small bowel movement in the commode this morning, but was a max assist getting out of bed. He also feels lightheaded, and reports increased respiratory distress with minimal activity. Per daughter at bedside, the patient has exhibited increasing confusion. His lucidity appears to wax and wane; for instance his daughter reported that earlier he asked if he was "going to be taken down for surgery [today]". Daughter believes this may be in reference to his history of colon cancer. Patient is not able to accurately convey the severity of his illness. When asked why he is in the hospital, he is unable to give a clear answer. ROS: Patient endorses hypothermia, extreme fatigue, lightheadedness, right-sided abdominal pain with palpation, chest palpitations with walking, pleuritic chest pain (50% of the time), productive cough, and AYALA. Patient denies fevers, headache, chest pain, nausea, vomiting, hemoptysis, or changes in urinary habits. Review of Systems Review of Systems: See HPI above Physical Exam Physical Exam: General: Patient is lying in bed; lethargic; cachectic; frail-appearing; non- toxic appearing; cooperative daughter at bedside; frail appearing; SpO2 93% on 3L NC HEENT: normocephalic, atraumatic; no scleral icterus; PERRLA; patient exhibits white exudates on the oral pharynx bilaterally (improving); vision intact; hard of hearing Neck: supple; no lymphadenopathy; trachea midline Skin: Clinically dry; no cyanosis; no rashes, bruising, lesions, or erythema noted CV: chest wall NTP; RRR; pulses intact and symmetric at radial, DP, and PT Lungs: Labored breathing while resting in bed; symmetrical chest wall expansion; clear breath sounds across all lung pace w/o adventitious sounds; no wheezing ABD: Soft, right upper and lower quadrants are mildly TTP; left upper and lower quadrants NTP; BS present; no rebound/guarding; no distention MSK: no tics or fasciculations; 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 Neuro: A&Ox3; normal mood and affect; fluent speech; no focal deficits; patient reports that sensation is intact and symmetric in lower extremities bilaterally assessed via light touch Results & Data Results & Data Vital Signs (Past 12 Hours) Vital Signs Temp Pulse Resp BP Pulse Ox Pulse Ox O2 Del Method 06/04/25 10:24 35.8 C L 06/04/25 07:54 35.6 C L 92 H 16 114/68 93 Nasal Cannula 06/04/25 03:18 94 O2 Del Method O2 Flow Rate O2 Flow Rate 06/04/25 10:24 06/04/25 07:54 3 06/04/25 03:18 Nasal Cannula 3 PG Care Time/CCT Total # of Minutes Spent Total Time Spent with Patient: Total time spent is greater than 50% in coordination of care (as documented) at patient's floor/unit and/or counseling patient: Coding [place] [address] SUB INP/OBS CARE 3/50MIN Patient Type Established Medical Decision Making High Complexity Diagnoses Hypoxia R09.02 Weakness R53.1 Leukocytosis D72.829 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
[2025-06-04] MEDS: LACTATED RINGER'S 1,000 ML IV SCH (12:32)
[2025-06-04] MEDS: OPTIRAY 320 100ml IV ONE (13:22)
--- NOTE | 2025-06-04 14:09 | CT Scan Report ---
ABDOMEN AND PELVIS CT WITH IV CONTRAST CT DOSE: 405.78 mGy.cm HISTORY: Acute right-sided abdominal pain Right-sided abd pain; R adrenal mets assessment TECHNIQUE: Multiaxial CT images of the abdomen and pelvis were performed following the IV administrat ion of 92 cc of Optiray, A dose lowering technique was utilized adhering to the principles of ALARA. COMPARISON STUDY: 04/26/2025. FINDINGS: Trace right and small left pleural effusions. Emphysema with bibasilar groundglass densitie s which have progressed from prior. Bibasilar subcentimeter solid pulmonary nodules again noted. Inde x 7 mm solid nodule in the basal right lower lobe on image 26 was not clearly seen. A subpleural nodu le in the right lower lobe on image 1 series 3 also appears to have increased in size. No pneumatosis or pneumoperitoneum. Unremarkable spleen and contracted gallbladder. 6 mm cystic focus of the pancreas on image 88 series 3, possibly a sidebranch IPMN. Hepatic steatosis. Right adrenal m etastatic lesion measures 4.7 x 2.8 cm, when measured in a similar fashion on the prior study measure d 4.2 x 2.5 cm. The moderate thickening of the left adrenal gland with few subcentimeter lesions lamine uring up to 8 mm which have increased in size. No definite liver lesions. Patency of the hepatic and portal veins. 4 mm nonobstructing calculus of the upper to mid pole right kidney. Left-sided renal va scular calcifications. No hydronephrosis. Decompressed bladder with Linn catheter in place. Advanced atherosclerosis of the aorta and branch vessels. High-grade stenosis at the origin of the right torey l artery. Additional multifocal high-grade stenoses throughout the iliac and femoral arteries. Postoperative/posttreatment related changes in the rectum and presacral distribution. Moderate coloni c fecal retention. There is no bowel obstruction or bowel wall thickening. Noninflamed appendix. No a cute fracture or destructive bone lesion identified. IMPRESSION: 1. No acute intra-abdominal or intrapelvic abnormality. 2. Progressive pulmonary and adrenal metastasis. 3. Trace right and small left pleural effusions. 4. Right nephrolithiasis without hydronephrosis. 5. Emphysema with bibasilar groundglass densities, which may represent pneumonitis versus pulmonary e blaise. Attention at follow-up recommended. 6. Additional findings as above. ACT 112: Negative or not required by law. The above report was generated using voice recognition software. It may contain grammatical, syntax o r spelling errors. Electronically signed by: Carlos Brizuela M.D. 06/04/2025 2:07 PM
[2025-06-04] MEDS: LIDOCAINE 5% 1 PATCH TD STA (15:17)
[2025-06-04] MEDS: REMOVE LIDODERM PATCH SCH (20:39)
[2025-06-05 07:21] LABS: Hematocrit (blood only) 28.4 % (42.0-52.0); Hemoglobin 10.2 g/dl (14.0-18.0); Mean Corpuscular Hemoglobin 36.4 pg (25.0-34.0); Mean Corpuscular Volume 101.4 fL (80.0-100.0); Platelet Count 112 K/uL (130-400); RDW Standard Deviation 55.0 fL (36.4-46.3); Red Blood Count 2.80 M/uL (4.70-6.10); White Blood Count 31.19 K/ul (4.8-10.8)
[2025-06-05 07:35] LABS: Anion Gap 5.0 (3-11); Blood Urea Nitrogen 27.0 mg/dl (6-23); Calcium 9.4 mg/dl (8.6-10.3); Carbon Dioxide 24.0 mmol/L (21-32); Chloride 103.0 mmol/L (98-107); Creatinine Clr Calc Pharmacy 102.4 ml/min; Glucose 159.0 mg/dl (70-99(Fasting)); Immature Granulocytes # (auto) 0.73 K/uL (0.01-0.20); Immature Granulocytes % (auto) 2.3 %; Potassium 4.2 mmol/L (3.5-5.1); Sodium 132.0 mmol/L (136-145)
--- NOTE | 2025-06-05 12:51 | Hospitalist Progress Note ---
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 His evaluation is still pending, but he does re-demonstrate leukocytosis of 28.06 which has increased from prior, as well as H&H 11.7/34.3. Lactate elevated at 2.4, procal WNL. #Leukocytosis | recurrent hypothermia | suspected adrenal insufficiency In setting of known carcinoma, also on dexamethasone at baseline. Received Cefazolin pre-op. Patient completed course of ceftriaxone and doxycycline while in the hospital. CBC trend: 28.06->25.73->26.00 -> 33.92 -> 34.69 -> 35.59 -> 31.19 Recurrent episodes of hypothermic on 06/03 and 06/04 Additional dexamethasone 4 mg IV x 1 Stress dose steroids PRN Renny hugger application Clinically, patient denies any changes in infectious symptoms other than "generalized fatigue", and so it is possible that this rise in blood count is secondary to dexamethasone use TSH low at 0.130, but Free T4 WNL A full infectious workup did not reveal any acute sources: Port site does not look infected on exam A/P CT ordered on 06/04 revealed progression of pulmonary and adrenal metastasis; no acute intra-abdominal abnormalities 06/02 BCx show NGTD on 06/04 Repeat CXR revealed no significant interval changes BioFire negative Repeat UA negative Procalcitonin WNL Patient noted diarrhea, but unable to obtain C. 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 vascular congestion ? Pseudomonas PNA Initiate cefepime 2000mg IV q8h Lasix 20mg IV x 1 Sputum culture ordered Antibiotic course was completed prior to this Ceftriaxone 1 mg IV x 5 days completed on 05/31 Doxycycline 100 mg IV twice daily x 5 days completed on 05/31 Supplemental O2 PRN with goal 88-93% -- No O2 at baseline Patient reportedly dropped to 82% on 2L NC while working with PT on 06/02 Attempt to ween supplemental O2 as tolerated Continuous pulse oximetry Continue Acetaminophen PRN fever/pain Pulmonology consult appreciated Recent PFT showed moderate obstructive lung disease Continue Incruse Ellipta daily DuoNebs as needed Discussed with patient and patient's family; palliative care consult appreciated Family would still like to try pill targeted chemotherapy, osimertinib (i.e. Tagrisso), when possible Tagrisso 80mg x 1 given on 06/05 However, in the setting of developing pulmonary infection, will hold further Tagrisso until respiratory status improves #Thrombocytopenia Platelet count downtrending (196 -> 112); continue to monitor #Generalized weakness PT/OT recommendations appreciated Patient approved for [facility], but has been too weak to work with PT/OT Additionally, prolonged hospital stay due to increased oxygen bands and intermittent episodes of hypothermia CM following #Oral candidiasis/thrush Nystatin 5 mL suspension QID x 10 days #Dysphagia Speech therapy consult appreciated Recommending small bites diet Aspiration/reflux precautions #S/p RIJ port insertion/Metastatic adenocarcinoma of lung/Cerebellar and adrenal gland metastasis Performed 05/26/2025, no apparent complications. No complaints per patient at this time. Lung CA dx 04/14/2025, with maria ines to brain and adrenal; previously complicated with cerebral edema. H/o COPD. Follows with heme/onc, radiation to brain then chemo to be started for lung CA; On dexamethasone po. General surgery consult appreciated #H/o stage IV colon CA- S/p chemo, radiation, and sx in 1996 #GERD- Pantoprazole - continue Dispo: Continued stay on MedSurg telemetry NOTE: Patient did receive [facility] authorization for [facility] program on 06/03. However, given recurrent setback (hypothermia and extreme fatigue), do not feel sending him to rehab at this time would be appropriate. Patient will need repeat PT/OT evaluations prior to discharge. VTE Prophylaxis: SCDs Have been updating patient's (Bárbara) and patient's daughter (Cheyenne) throughout his hospital stay. Admission and Anticipated Discharge Date Admission Date: May 28, 2025 Supervising Physician Co-Signing Physician Notes Attending Attestation - Chart reviewed, care plan d/w PA Mirza Sanchez. I agree w/ the mueller components of his documentation. Reg Madsen MD Subjective Mr. Fontenot reports that he had a restless night last night and was unable to sleep. He has not been eating or drinking much this morning. He also reports that his breathing is worse today. He endorses SOB at rest, as well as pleuritic CP, and ongoing cough. He denies prior history of CHF. ROS: Patient endorses cold intolerance, lower extremity weakness, generalized fatigue, chills, SOB at rest, orthopnea, cough, and pleuritic CP. Patient denies fevers, abdominal pain, or N/V/D. Review of Systems Review of Systems: See HPI above Physical Exam Physical Exam: General: Patient is lying in bed; lethargic; cachectic; frail-appearing; non- toxic appearing; SpO2 91% on 4L NC HEENT: normocephalic, atraumatic; no scleral icterus; PERRLA; patient exhibits white exudates on the oral pharynx bilaterally (improving from prior); vision intact; hard of hearing Neck: supple; no lymphadenopathy; trachea midline Skin: Clinically dry; no cyanosis; no rashes, bruising, lesions, or erythema noted CV: chest wall NTP; RRR; pulses intact and symmetric at radial, DP, and PT Lungs: Labored breathing while resting upright in bed; breathing is acutely worse when lying patient flat to reposition; symmetrical chest wall expansion; clear breath sounds across all lung pace w/o adventitious sounds; no wheezing ABD: Soft, right upper and lower quadrants are mildly TTP; left upper and lower quadrants NTP; BS present; no rebound/guarding; no distention MSK: no tics or fasciculations; 4/5 motorcoach operator strength bilaterally; 1/5 strength in lower EXTR bilaterally when lifting legs up off the bed Neuro: A&Ox3; normal mood and affect; fluent speech; no focal deficits appreciated; patient reports that sensation is intact and symmetric in lower extremities bilaterally assessed via light touch Results & Data Results & Data Vital Signs (Past 12 Hours) Vital Signs Temp Pulse Resp BP Pulse Ox Pulse Ox O2 Del Method 06/05/25 12:45 36.5 C 16 91 Nasal Cannula 06/05/25 12:05 86 L Nasal Cannula 06/05/25 12:05 82 L Nasal Cannula 06/05/25 08:30 Nasal Cannula 06/05/25 06:56 36.2 C L 92 H 16 152/76 H 94 Room Air 06/05/25 03:24 94 O2 Del Method O2 Flow Rate O2 Flow Rate 06/05/25 12:45 4 06/05/25 12:05 4 06/05/25 12:05 3 06/05/25 08:30 3 06/05/25 06:56 06/05/25 03:24 Nasal Cannula 3 PG Care Time/CCT Total # of Minutes Spent Total Time Spent with Patient: Total time spent is greater than 50% in coordination of care (as documented) at patient's floor/unit and/or counseling patient: C[place] [address] SUB INP/OBS CARE 3/50MIN Patient Type Established Medical Decision Making High Complexity Diagnoses Hypoxia R09.02 Weakness R53.1 Leukocytosis D72.829 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
--- NOTE | 2025-06-05 14:14 | XRay Report ---
Chest radiograph, one view History: Increased oxygen requirements. Question pulmonary edema. Comparison: June 02, 2025. Findings: Stable right chest port catheter. Density left apex likely representing moderate focal pleural-parenchymal disease with at least mild volume loss left lung. This is unchanged. Right suprahilar region of increased interstitial and ground glass opacity. This appears to be more apparent when compared to prior exam. This may be positional. Nonspecific bilateral perihilar and infrahilar increased reticular markings. No appreciated acute pleural disease. Calcified atherosclerotic changes of the thoracic aorta. Cardiomediastinal silhouette is otherwise stable. Likely right apical pleural thickening. Impression: 1. Findings worrisome for progressing nonspecific right peripheral suprahilar airspace and interstitial opacity with mildly diffuse increasing bilateral pulmonary reticular markings. Correlate clinically for inflammatory or infectious process. Vascular congestion not entirely excluded. 2. Persistent nonspecific at least moderate size left pleural-parenchymal apical opacity. Please see above for details. Electronically signed by Isauro Sheffield 06-05-2025 2:12 PM
[2025-06-05] MEDS: FUROSEMIDE INJ 20 MG/2 ML VIAL IV ONE (16:29)
[2025-06-05] MEDS: OSIMERTINIB MESYLATE PO SCH (16:35)
[2025-06-05] MEDS: CEFEPIME 2000MG 2,000 MG/20 ML SYR IV SCH (17:00)
[2025-06-06 08:58] LABS: Hematocrit (blood only) 30.2 % (42.0-52.0); Hemoglobin 10.5 g/dl (14.0-18.0); Mean Corpuscular Hemoglobin 35.5 pg (25.0-34.0); Mean Corpuscular Volume 102.0 fL (80.0-100.0); Platelet Count 114 K/uL (130-400); RDW Standard Deviation 55.5 fL (36.4-46.3); Red Blood Count 2.96 M/uL (4.70-6.10); White Blood Count 31.69 K/ul (4.8-10.8)
[2025-06-06 09:09] LABS: Anion Gap 3.0 (3-11); Blood Urea Nitrogen 28.0 mg/dl (6-23); Calcium 9.6 mg/dl (8.6-10.3); Carbon Dioxide 26.0 mmol/L (21-32); Chloride 102.0 mmol/L (98-107); Creatinine Clr Calc Pharmacy 98.3 ml/min; Glucose 160.0 mg/dl (70-99(Fasting)); Potassium 4.0 mmol/L (3.5-5.1); Sodium 131.0 mmol/L (136-145)
[2025-06-06 09:27] LABS: Immature Granulocytes # (auto) 0.72 K/uL (0.01-0.20); Immature Granulocytes % (auto) 2.3 %; Tear Drop Cells 1+
--- NOTE | 2025-06-06 16:59 | Hospitalist Progress Note ---
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 His evaluation is still pending, but he does re-demonstrate leukocytosis of 28.06 which has increased from prior, as well as H&H 11.7/34.3. Lactate elevated at 2.4, procal WNL. # Pneumonia | recurrent hypothermia | suspected adrenal insufficiency In setting of known carcinoma, also on dexamethasone at baseline. Received Cefazolin pre-op. Patient completed course of ceftriaxone and doxycycline while in the hospital, but then exhibited recurrence of pneumonia on CXR 06/05 CBC trend: 26.00 -> 33.92 -> 34.69 -> 35.59 -> 31.19 -> 31.69 Stress dose steroids + betina hugger PRN for hypothermia TSH low at 0.130, but Free T4 WNL Full infection workup was conducted: Port site does not look infected on exam A/P CT ordered on 06/04 revealed progression of pulmonary and adrenal metastas is; no acute intra-abdominal abnormalities 06/02 BCx show NGTD on 06/04 Repeat CXR revealed no significant interval changes BioFire negative Repeat UA negative Procalcitonin WNL Patient noted diarrhea, but unable to obtain C. difficile testing as it is now formed CRP elevated at 2.94 Clinically, patient does not exhibit rashes, bruising, or open lesions on the skin on clinical exam Cefepime 2000 mg IV q8h started on 06/05 06/04 - peripheral blood smear ordered, still pending #Acute postoperative pulmonary insufficiency due to metastatic lung cancer, pneumonia, and underlying pulmonary emphysema and COPD #Stage IV adenocarcinoma of the lungs with cerebellar metastasis Supplemental O2 PRN with goal 88-93% -- No O2 at baseline Patient reportedly dropped to 82% on 2L NC while working with PT on 06/02 Attempt to ween supplemental O2 as tolerated Continuous pulse oximetry Continue Acetaminophen PRN fever/pain Pulmonology consult appreciated Recent PFT showed moderate obstructive lung disease Continue Incruse Ellipta daily DuoNebs as needed Discussed with patient and patient's family; palliative care consult appreciated Family would still like to try pill targeted chemotherapy, osimertinib (i.e. Tagrisso), when possible Tagrisso 80mg x 1 given on 06/05 However, in the setting of developing pulmonary infection, will hold further Tagrisso until respiratory status improves #Thrombocytopenia Platelet count downtrending (196 -> 114); continue to monitor #Generalized weakness PT/OT recommendations appreciated Patient approved for [facility], but has been too weak to work with PT/OT most days Additionally, prolonged hospital stay due to increased oxygen demands, intermittent hypothermia, and recurrent PNA CM following #Oral candidiasis/thrush (improving) Nystatin 5 mL suspension QID x 10 days #Dysphagia Speech therapy consult appreciated Recommending small bites diet Aspiration/reflux precautions #S/p RIJ port insertion/Metastatic adenocarcinoma of lung/Cerebellar and adrenal gland metastasis Performed 05/26/2025, no apparent complications. No complaints per patient at this time. Lung CA dx 04/14/2025, with maria ines to brain and adrenal; previously complicated with cerebral edema. H/o COPD. Follows with heme/onc, radiation to brain then chemo to be started for lung CA; On dexamethasone po. General surgery consult appreciated #H/o stage IV colon CA- S/p chemo, radiation, and sx in 1996 #GERD- Pantoprazole - continue Dispo: Continued stay on MedSurg telemetry NOTE: Patient did receive [facility] authorization for [facility] program on 06/03. However, given recurrent setback (hypothermia and extreme fatigue), do not feel sending him to rehab at this time would be appropriate. Patient will need repeat PT/OT evaluations prior to discharge. VTE Prophylaxis: SCDs Have been updating patient's (Bárbara) and patient's daughter (Cheyenne) throughout his hospital stay. Admission and Anticipated Discharge Date Admission Date: May 28, 2025 Supervising Physician Co-Signing Physician Notes Attending Attestation - Chart reviewed, care plan d/w JERONIMO Sanchez. I agree w/ the mueller components of his documentation. Reg Madsen MD Subjective Mr. Fontenot is feeling similar today compared to yesterday. He endorses SOB at rest, and generalized fatigue/weakness. He did not sleep bad last night, and has been able to eat some breakfast this morning, including chocolate pudding. Despite this, he exhibits extreme fatigue and is slow to respond to questioning, fading in and out of sleep throughout our conversation. ROS: Patient endorses SOB at rest, extreme fatigue, and lower extremity weakness. Patient denies chest pain, pleuritic CP, abdominal pain, or changes in urine or bowel habits. Review of Systems Review of Systems: See HPI above Physical Exam Physical Exam: General: Patient is lying in bed; lethargic; cachectic; frail-appearing; non- toxic appearing; SpO2 93% on 4L NC HEENT: normocephalic, atraumatic; no scleral icterus; PERRLA; patient exhibits white exudates on the oral pharynx bilaterally (improving from prior); vision intact; hard of hearing Neck: supple; no lymphadenopathy; trachea midline Skin: Clinically dry; no cyanosis; no rashes, bruising, lesions, or erythema noted CV: chest wall NTP; RRR; pulses intact and symmetric at radial, DP, and PT Lungs: Labored breathing while resting upright in bed; breathing is acutely worse when lying patient flat to reposition; symmetrical chest wall expansion; clear breath sounds across all lung pace w/o adventitious sounds; no wheezing ABD: Soft, right upper and lower quadrants are mildly TTP; left upper and lower quadrants NTP; BS present; no rebound/guarding; no distention MSK: no tics or fasciculations; 4/5 tooling mechanic strength bilaterally; 1/5 strength in lower EXTR bilaterally when lifting legs up off the bed Neuro: A&Ox3; normal mood and affect; fluent speech; no focal deficits appreciated; patient reports that sensation is intact and symmetric in lower extremities bilaterally assessed via light touch Results & Data Results & Data Vital Signs (Past 12 Hours) Vital Signs Temp Pulse Resp BP Pulse Ox O2 Del Method O2 Flow Rate 06/06/25 15:57 36.4 C L 72 16 111/65 93 Nasal Cannula 06/06/25 14:10 36.3 C L 06/06/25 08:30 Nasal Cannula 4 06/06/25 07:27 36.3 C L 83 18 133/79 94 Nasal Cannula PG Care Time/CCT Total # of Minutes Spent Total Time Spent with Patient: Total time spent is greater than 50% in coordination of care (as documented) at patient's floor/unit and/or counseling patient: Coding [place] [address] SUB INP/OBS CARE 3/50MIN Patient Type Established Medical Decision Making High Complexity Diagnoses Hypoxia R09.02 Weakness R53.1 Leukocytosis D72.829 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
[2025-06-07 08:50] LABS: Anion Gap 4.0 (3-11); Blood Urea Nitrogen 29.0 mg/dl (6-23); Calcium 9.8 mg/dl (8.6-10.3); Carbon Dioxide 27.0 mmol/L (21-32); Chloride 101.0 mmol/L (98-107); Creatinine Clr Calc Pharmacy 84.8 ml/min; Glucose 173.0 mg/dl (70-99(Fasting)); Potassium 4.2 mmol/L (3.5-5.1); Sodium 132.0 mmol/L (136-145)
[2025-06-07 09:02] LABS: Hematocrit (blood only) 30.7 % (42.0-52.0); Hemoglobin 10.6 g/dl (14.0-18.0); Mean Corpuscular Hemoglobin 35.1 pg (25.0-34.0); Mean Corpuscular Volume 101.7 fL (80.0-100.0); Platelet Count 112 K/uL (130-400); RDW Standard Deviation 56.2 fL (36.4-46.3); Red Blood Count 3.02 M/uL (4.70-6.10); White Blood Count 29.29 K/ul (4.8-10.8)
[2025-06-07 09:03] LABS: Basophilic Stippling 1+; Immature Granulocytes # (auto) 0.86 K/uL (0.01-0.20); Immature Granulocytes % (auto) 2.9 %; Macrocytosis Present; Polychromasia 1+
--- NOTE | 2025-06-07 12:39 | Hospitalist Progress Note ---
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 His evaluation is still pending, but he does re-demonstrate leukocytosis of 28.06 which has increased from prior, as well as H&H 11.7/34.3. Lactate elevated at 2.4, procal WNL. # Pneumonia | recurrent hypothermia | suspected adrenal insufficiency - In setting of known carcinoma, also on dexamethasone at baseline. Patient completed course of ceftriaxone and doxycycline while in the hospital, but then exhibited recurrence of pneumonia on CXR 06/05. Had a full infectious workup including negative biofire, negative UA, procal WNL Started on cefepime 06/05 - with alteration in mentation switch to levaquin 06/07 Leukocytosis finally starting to improve. Stress dose steroids + betina hugger PRN for hypothermia TSH low at 0.130, but Free T4 WNL Blood cultures: negative at 48 hours 06/04 - peripheral blood smear ordered, still pending #Acute postoperative pulmonary insufficiency due to metastatic lung cancer, pneumonia, and underlying pulmonary emphysema and COPD #Stage IV adenocarcinoma of the lungs with cerebellar metastasis Supplemental O2 PRN with goal 90% -- ween as tolerated Pulmonology consult appreciated - Recent PFT showed moderate obstructive lung disease. Continue Incruse Ellipta daily. DuoNebs as needed Discussed with patient and patient's family; palliative care consult appreciated Family would still like to try pill targeted chemotherapy, osimertinib (i.e. Tagrisso), when possible. Tagrisso 80mg x 1 given on 06/05 - However, in the setting of developing pulmonary infection, will hold further Tagrisso until respiratory status improves CT A/P did show worsening metastasis in lungs and adrenals. Palliative consulted - initially pt and family were hoping for improvement to be able to rehab and then go home on a transitional program but Tj has declined over the weekend. Family would like to re-eval tomorrow, has family meeting scheduled with palliative. #Thrombocytopenia Platelet count downtrending (196 -> 114); continue to monitor #Generalized weakness PT/OT recommendations appreciated Patient approved for [facility], but has been too weak to work with PT/OT most days - not stable for rehab placement at this point CM following #Oral candidiasis/thrush (improving) Nystatin 5 mL suspension QID x 10 days #Dysphagia Speech therapy consult appreciated - Recommending small bites diet Aspiration/reflux precautions #S/p RIJ port insertion/Metastatic adenocarcinoma of lung/Cerebellar and adrenal gland metastasis Performed 05/26/2025, no apparent complications. No complaints per patient at this time. Lung CA dx 04/14/2025, with maria ines to brain and adrenal; previously compli cated with cerebral edema. H/o COPD. Follows with heme/onc, radiation to brain then chemo to be started for lung CA; On dexamethasone po. General surgery consult appreciated #H/o stage IV colon CA- S/p chemo, radiation, and sx in 1996 #GERD- Pantoprazole - continue Dispo: Continued stay on MedSurg telemetry, family meeting tomorrow 2pm VTE Prophylaxis: SCDs Case discussed with palliative care Admission and Anticipated Discharge Date Admission Date: May 28, 2025 Supervising Physician Co-Signing Physician Notes Attending Attestation - Chart reviewed, care plan d/w JERONIMO Robbins. I agree w/ the mueller components of her documentation. Reg Madsen MD Subjective Patient seen lying in bed - was not aware that he was in the hospital thinks it is 1980s denies pain reoriented to hospital room and avoiding pulling at lines Review of Systems Review of Systems: Unobtainable due to cognitive status Physical Exam Physical Exam: General: NAD, VS as above, ill appearing, sitting up in bed, pulling at gown Resp: normal respiratory effort, diminished in the bases CV: RRR, no murmur, Abd: soft non tender, Extremities: Moves all extremities, non pitting LE edema Neuro: A&O x1, Results & Data Results & Data Vital Signs (Past 12 Hours) Vital Signs Temp Pulse Resp BP Pulse Ox O2 Del Method O2 Flow Rate 06/07/25 07:06 97.5 F L 90 14 122/73 91 Nasal Cannula 5 Laboratory Results cbc and chemistry reviewed PG Care Time/CCT Total # of Minutes Spent Total Time Spent with Patient: Total time spent is greater than 50% in coordination of care (as documented) at patient's floor/unit and/or counseling patient: Coding Level of Care Code 42160 SUB INP/OBS CARE 2/35MIN Diagnoses Hypoxia R09.02 Weakness R53.1 Leukocytosis D72.829 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
--- NOTE | 2025-06-07 13:08 | Palliative Care Progress Note ---
Date of Service June 07, 2025 Assessment & Plan (1) Weakness generalized: Plan: Pt reportedly with progressive lethargy and unable to sit at bedside with OT due to weakness. (2) Palliative care by specialist: Plan: Palliative care will continue to follow for ongoing GOC discussions and family support. (3) Advanced care planning/counseling discussion: Plan: Pt's daughter reports that patient's son is currently driving from [place] and will [facility]. She shared that he has been estranged from his parents for more than 20yrs and she has not spoken to him in more than 17years. She said she is not sure how involved he would wish to be in GOC discussions but will afford him the opportunity. She requests family meeting late tomorrow afternoon. She shared concern that the patient has had decline in cognition and strength over weekend and family is considering home with hospice at this time. Plan GOC discussion scheduled with family for 14:00 on 06/08/25. Admission and Anticipated Discharge Date Admission Date: May 28, 2025 Subjective Assessed pt at bedside, his daughter was present. Pt drowsy but arousable, oriented to person only. NAD on room air and denies discomfort. Review of Systems Review of Systems: Unobtainable due to cognitive status Physical Exam Constitutional: well developed, + ill appearing and comfortable; no acute distress Eyes: PERRL, conjunctivae normal, anicteric sclerae Neck: trachea midline, no thyromegaly Cardiovascular: RRR, no murmur, no edema Gastrointestinal (Abdomen): normal bowel sounds, soft, nontender, no hepatosplenomegaly Skin: no rashes, warm and dry Neurologic: PAIZ Psychiatric: Orientation: oriented to person drowsy, withdrawn Results & Data Vital Signs (Past 12 Hours) Vital Signs Temp Pulse Resp BP Pulse Ox O2 Del Method O2 Flow Rate 06/07/25 07:06 36.4 C L 90 14 122/73 91 Nasal Cannula 5 Laboratory Results Abnormal lab results 06/07/25 Range/Units 07:34 WBC 29.29 H (4.8-10.8) K/ul RBC 3.02 L (4.70-6.10) M/uL Hgb 10.6 L (14.0-18.0) g/dl Hct 30.7 L (42.0-52.0) % MCV 101.7 H (80.0-100.0) fL MCH 35.1 H (25.0-34.0) pg RDW Std Deviation 56.2 H (36.4-46.3) fL RDW Coeff of Annamarie 15.0 H (11.5-14.5) % Plt Count 112 L (130-400) K/uL Neut # (Auto) 27.15 H (1.40-6.50) K/uL Lymph # (Auto) 0.42 L (1.20-3.40) K/uL [place] # (Auto) 0.78 H (0.11-0.59) K/uL Immature Gran # (Auto) 0.86 H (0.01-0.20) K/uL Sodium 132 L (136-145) mmol/L BUN 29 H (6-23) mg/dl Creatinine 0.58 L (0.6-1.4) mg/dl BUN/Creatinine Ratio 50.0 H (10-20) Glucose 173 H (70-99(Fasting)) mg/dl Diagnostic Findings Head CT 05/27/25 10:14 CT SCAN OF THE BRAIN WITHOUT IV CONTRAST CLINICAL HISTORY: Weakness COMPARISON STUDY: CT scan dated 05/27/2025, MRI the brain dated 04/02/2025 TECHNIQUE: Unenhanced axial CT scan of the brain was performed from the vertex to the skull base. A dose lowering technique was utilized adhering to the principles of ALARA. CT DOSE: 703.85 mGy.cm FINDINGS: There is no CT evidence of acute cortical infarction. There is no hydrocephalus. There is no evidence of acute intracranial hemorrhage. There are patchy white matter hypodensities, likely on a small vessel basis. There is a 15 mm hypodensity within the right cerebral hemisphere just beneath tentorium. This appears smaller than on the prior CT scan, and likely represents residual edema status post treatment of cerebellar metastatic disease. There is a stable hyperdense 8 mm nodule within the right superior parafalcine region. IMPRESSION: 1. Interval decrease in the size of the previously described right cerebellar mass with surrounding edema. Resolution of the mass effect on the brainstem and fourth ventricle. 2. No evidence of acute hemorrhage. No evidence of hydrocephalus. ACT 112: Negative or not required by law. Electronically signed by: Antonio Lyons M.D. 05/27/2025 12:07 PM Abdomen/Pelvis CT 06/04/25 11:[address] WITH IV CONTRAST CT DOSE: 405.78 mGy.cm HISTORY: Acute right-sided abdominal pain Right-sided abd pain; R adrenal mets assessment TECHNIQUE: Multiaxial CT images of the abdomen and pelvis were performed following the IV administration of 92 cc of Optiray, A dose lowering technique was utilized adhering to the principles of ALARA. COMPARISON STUDY: 04/26/2025. FINDINGS: Trace right and small left pleural effusions. Emphysema with bibasilar groundglass densities which have progressed from prior. Bibasilar subcentimeter solid pulmonary nodules again noted. Index 7 mm solid nodule in the basal right lower lobe on image 26 was not clearly seen. A subpleural nodule in the right lower lobe on image 1 series 3 also appears to have increased in size. No pneumatosis or pneumoperitoneum. Unremarkable spleen and contracted gallbladder. 6 mm cystic focus of the pancreas on image 88 series 3, possibly a sidebranch IPMN. Hepatic steatosis. Right adrenal metastatic lesion measures 4.7 x 2.8 cm, when measured in a similar fashion on the prior study measured 4.2 x 2.5 cm. The moderate thickening of the left adrenal gland with few subcentimeter lesions measuring up to 8 mm which have increased in size. No definite liver lesions. Patency of the hepatic and portal veins. 4 mm nonobstructing calculus of the upper to mid pole right kidney. Left-sided renal vascular calcifications. No hydronephrosis. Decompressed bladder with Linn catheter in place. Advanced atherosclerosis of the aorta and branch vessels. High-grade stenosis at the origin of the right renal artery. Additional multifocal high-grade stenoses throughout the iliac and femoral arteries. Postoperative/posttreatment related changes in the rectum and presacral distribution. Moderate colonic fecal retention. There is no bowel obstruction or bowel wall thickening. Noninflamed appendix. No acute fracture or destructive bone lesion identified. IMPRESSION: 1. No acute intra-abdominal or intrapelvic abnormality. 2. Progressive pulmonary and adrenal metastasis. 3. Trace right and small left pleural effusions. 4. Right nephrolithiasis without hydronephrosis. 5. Emphysema with bibasilar groundglass densities, which may represent pneumonitis versus pulmonary edema. Attention at follow-up recommended. 6. Additional findings as above. ACT 112: Negative or not required by law. The above report was generated using voice recognition software. It may contain grammatical, syntax or spelling errors. Electronically signed by: Carlos Brizuela M.D. 06/04/2025 2:07 PM Chest X-Ray 06/05/25 12:49 Chest radiograph, one view History: Increased oxygen requirements. Question pulmonary edema. Comparison: June 02, 2025. Findings: Stable right chest port catheter. Density left apex likely representing moderate focal pleural-parenchymal disease with at least mild volume loss left lung. This is unchanged. Right suprahilar region of increased interstitial and ground glass opacity. This appears to be more apparent when compared to prior exam. This may be positional. Nonspecific bilateral perihilar and infrahilar increased reticular markings. No appreciated acute pleural disease. Calcified atherosclerotic changes of the thoracic aorta. Cardiomediastinal silhouette is otherwise stable. Likely right apical pleural thickening. Impression: 1. Findings worrisome for progressing nonspecific right peripheral suprahilar airspace and interstitial opacity with mildly diffuse increasing bilateral pulmonary reticular markings. Correlate clinically for inflammatory or infectious process. Vascular congestion not entirely excluded. 2. Persistent nonspecific at least moderate size left pleural-parenchymal apical opacity. Please see above for details. Electronically signed by Isauro Sheffield 06-05-2025 2:12 PM Medications Administered Current Inpatient Medications Acetaminophen (Acetaminophen 500 Mg Tab) 1,000 mg PO Q8H PRN PRN Reason: Pain & Pre PT Stop: 06/25/25 15:18 Last Admin: 06/07/25 11:55 Dose: 1,000 mg Albuterol (Albut/Ipratrop 3mg/0.5mg Neb 3 Ml Vial) 3 ml NEB QIDR PRN; Protocol PRN Reason: Wheezing Stop: 07/01/25 22:35 Dexamethasone (Dexamethasone 4 Mg Tab) 4 mg PO TID MARGARITA Stop: 06/26/25 08:59 Last Admin: 06/07/25 07:57 Dose: 4 mg Enoxaparin Sodium (Enoxaparin Inj 40 Mg/0.4 Ml Syr) 40 mg SQ Q24H MARGARITA Stop: 06/26/25 18:29 Last Admin: 06/06/25 18:16 Dose: 40 mg Folic Acid (Folic Acid 1 Mg Tab) 1 mg PO QAM MARGARITA Stop: 07/04/25 08:59 Last Admin: 06/07/25 07:57 Dose: 1 mg Levofloxacin/Dextrose (Levaquin/D5w) 750 mg in 150 mls @ 100 mls/hr IV Q24H [facility]; Protocol Stop: 06/12/25 13:59 Lorazepam (Lorazepam 0.5 Mg Tab) 0.5 mg PO HS PRN PRN Reason: Anxiety Stop: 06/27/25 16:55 Last Admin: 06/06/25 23:08 Dose: 0.5 mg Miscellaneous (Remove Lidoderm Patch) 1 each N/A DAILY@2100 [facility] Stop: 07/04/25 20:59 Last Admin: 06/06/25 22:30 Dose: Not Given Morphine Sulfate (Morphine Sulfate 2 Mg/Ml Carp) 2 mg IV Q3H PRN PRN Reason: Pain (1,2,3,4,5) & Pre PT Stop: 06/09/25 15:18 Last Admin: 06/02/25 22:33 Dose: 2 mg Morphine Sulfate (Morphine Sulfate 4 Mg/Ml 1 Ml Carp\Vial) 4 mg IV Q3H PRN PRN Reason: Pain (6,7,8,9,10) Stop: 06/09/25 15:18 Nystatin (Nystatin Susp 500,000 U/5 Ml Udc) 5 ml PO QID [facility] Stop: 06/11/25 12:59 Last Admin: 06/07/25 07:57 Dose: 5 ml Osimertinib (Osimertinib Mesylate (Pom)) 1 each PO DAILY [facility] Stop: 07/05/25 13:59 Last Admin: 06/05/25 16:35 Dose: 1 each Oxycodone HCl (Oxycodone Hcl Ir 5 Mg Tab (Immediate Release)) 5 mg PO Q4H PRN PRN Reason: MODERATE Pain (4,5,6) & Pre PT Stop: 06/09/25 15:18 Last Admin: 06/02/25 00:15 Dose: 5 mg Oxycodone HCl (Oxycodone Hcl Ir 5 Mg Tab (Immediate Release)) 10 mg PO Q4H PRN PRN Reason: SEVERE Pain (7,8,9,10) Stop: 06/09/25 15:18 Pantoprazole Sodium (Pantoprazole 40 Mg Tab) 40 mg PO DAILY [facility] Stop: 06/26/25 08:59 Last Admin: 06/07/25 07:58 Dose: 40 mg Umeclidinium Sawyer (Umeclidinium Sawyer 62.5mcg/Blister 7 Puffs/Inhaler) 1 puffs INH DAILY MARGARITA Stop: 07/01/25 12:59 Last Admin: 06/07/25 07:58 Dose: 1 puffs PG Care Time/CCT Total # of Minutes Spent Total Time Spent with Patient: Total time spent is greater than 50% in coordination of care (as documented) at patient's floor/unit and/or counseling patient: Advanced Care Planning 37899 Advanced Care Planning 30 Min C[place] [address] SUB INP/OBS CARE 2/35MIN Patient Type Established History Expanded Problem Focused Exam Expanded Problem Focused Medical Decision Making Moderate Complexity Diagnoses Weakness generalized R53.1 Palliative care by specialist Z51.5 Advanced care planning/counseling discussion Z71.89 Additional Codes Advanced Care Planning - 91003 Advanced Care Planning 30 Min: 92450 Advanced Care Planning 30 Min ([id number])
[2025-06-08 07:51] LABS: Hematocrit (blood only) 30.8 % (42.0-52.0); Hemoglobin 10.8 g/dl (14.0-18.0); Mean Corpuscular Hemoglobin 36.1 pg (25.0-34.0); Mean Corpuscular Volume 103.0 fL (80.0-100.0); Platelet Count 108 K/uL (130-400); RDW Standard Deviation 57.2 fL (36.4-46.3); Red Blood Count 2.99 M/uL (4.70-6.10); White Blood Count 29.15 K/ul (4.8-10.8)
[2025-06-08 07:52] VITALS: BP 126/66; PULSE 105; RESP 13; TEMP 97.8; O2SAT 91
[2025-06-08 08:12] LABS: Anion Gap 7.0 (3-11); Blood Urea Nitrogen 33.0 mg/dl (6-23); Calcium 9.9 mg/dl (8.6-10.3); Carbon Dioxide 24.0 mmol/L (21-32); Chloride 101.0 mmol/L (98-107); Creatinine Clr Calc Pharmacy 76.8 ml/min; Glucose 106.0 mg/dl (70-99(Fasting)); Potassium 4.4 mmol/L (3.5-5.1); Sodium 132.0 mmol/L (136-145)
[2025-06-08 08:17] LABS: Immature Granulocytes # (auto) 0.81 K/uL (0.01-0.20); Immature Granulocytes % (auto) 2.8 %; Polychromasia 1+; Toxic Vacuolation 1+
[2025-06-08] MEDS: MoRPHine SULFATE 4 MG/ML 1 ML CARP\\VIAL IV PRN (11:57)
[2025-06-08] MEDS ORDERED: ONDANSETRON INJ 2 MG/ML 2 ML VIAL IV PRN (12:30)
[2025-06-08] MEDS ORDERED: GLYCOPYRROLATE 0.2 MG/ML VIAL IV PRN (12:30)
[2025-06-08] MEDS: MoRPHine SULFATE 2 MG/ML CARP IV PRN ×2 (13:03→16:27)
--- NOTE | 2025-06-08 15:01 | Hospitalist Progress Note ---
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: (6) Cerebellar metastasis: (7) GERD (gastroesophageal reflux disease): (8) Acute hypoxic respiratory failure: (9) Dysphagia: (10) Oral candidiasis: (11) Hypothermia: (12) Adrenal insufficiency: Plan #DOCUMENTATION ANALYST Transitioned on 06/08 GIP consult morphine prn air hunger or pain ativan IV prn agitation robinul prn secretions # Pneumonia | recurrent hypothermia | suspected adrenal insufficiency #Acute postoperative pulmonary insufficiency due to metastatic lung cancer, pneumonia, and underlying pulmonary emphysema and COPD #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 He unfortantately developed PNA and completed course of ceftriaxone and doxycycline. Pulmonology was consulted and his inhaler regimen was chaged. Also issues with temperature regulation and given stress dose steroids. There was an attempt to start PO chemo but then had recurrence of pneumonia on 06/05 started on cefepime and with altered mental status, transitioned to Levaquin. Overnight 06/07 had increased O2 needs, requiring HFNC. Patient barely able to open eyes, unable to follow commands. Family opted to transition to DOCUMENTATION ANALYST on 06/08 #Thrombocytopenia - no further management with DOCUMENTATION ANALYST #Oral candidiasis/thrush (improving) no further management with DOCUMENTATION ANALYST, routine oral care #S/p RIJ port insertion/Metastatic adenocarcinoma of lung/Cerebellar and adrenal gland metastasis Performed 05/26/2025, no apparent complications. No complaints per patient at this time. Lung CA dx 04/14/2025, with maria ines to brain and adrenal; previously complicated with cerebral edema. #H/o stage IV colon CA- S/p chemo, radiation, and sx in 1996 #GERD- Pantoprazole - continue Dispo: DOCUMENTATION ANALYST VTE Prophylaxis: SCDs Case discussed with palliative care Admission and Anticipated Discharge Date Admission Date: May 28, 2025 Supervising Physician Co-Signing Physician Notes Attending Attestation - Chart reviewed, care plan d/w JERONIMO Robbins. I agree w/ the mueller components of her documentation. I agree w/ transition to comfort care measures. Patient has not had recovery from his pulmonary illness despite maximal medical efforts in the setting of stage 4 lung ca. Reg Madsen MD Subjective Patient seen this morning, restless in bed opens eyes to name does not answer questions no family at bedside this morning Review of Systems Review of Systems: Unobtainable due to cognitive status Physical Exam Physical Exam: General: NAD, VS as above, ill appearing, sitting up in bed, pulling at gown Resp: normal respiratory effort, on HFNC CV: RRR, no murmur, Extremities: Moves all extremities, non pitting LE edema Neuro: A&O x1, Results & Data Results & Data Vital Signs (Past 12 Hours) Vital Signs Temp Pulse Resp BP Pulse Ox O2 Del Method O2 Flow Rate 06/08/25 08:15 97.8 F 06/08/25 08:15 High Flow Nasal Cannula 15 06/08/25 07:47 97.8 F 105 H 13 126/66 91 High Flow Nasal Cannula 15 Laboratory Results cbc and chemistry reviewed PG Care Time/CCT Total # of Minutes Spent Total Time Spent with Patient: Total time spent is greater than 50% in coordination of care (as documented) at patient's floor/unit and/or counseling patient: Coding Level of Care Code None Diagnoses Comfort measures only status Z51.5 Hypoxia R09.02 Weakness R53.1 Leukocytosis D72.829 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
--- NOTE | 2025-06-08 18:36 | Death Pronouncement Note ---
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 They were unresponsive to, and did not withdrawal from, verbal or tactile stimuli. They were unresponsive to corneal, pupillary, and oculocephalic reflexes. On cardiopulmonary exam, they were found to be without detectable carotid pulses, and without spontaneous heart tones or respirations. Time of 1814, 06/08/2025 Family at bedside. 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
--- NOTE | 2025-06-08 18:36 | Discharge Summary ---
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 He un fortantately developed PNA and completed course of ceftriaxone and doxycycline. Pulmonology was consulted and his inhaler regimen was changed. Also issues with temperature regulation and given stress dose steroids. There was an attempt to start PO chemo but then had recurrence of pneumonia on 06/05 started on cefepime and with altered mental status, transitioned to Levaquin. Overnight 06/07 had increased O2 needs, requiring HFNC. Patient barely able to open eyes, unable to follow commands. Family opted to transition to HOSPITALITY SPECIALIST on 06/08 and he at 1815 on 06/08 = Admission HPI Per Admitting Provider 79-year-old male PMHx non-small cell lung cancer with cerebellar and adrenal gland metastasis, CN palsy bilaterally, COPD, BPH, and history of cerebral edema who is being evaluated after insertion of port into RIJ on 05/26/2025, now experiencing significant weakness and concerns for safety if going home. He not es that the symptoms that he has been experiencing have been ongoing since before his most recent hospitalization. States that he experiences lightheadedness, dizziness (mix of vertiginous and off balance), as well as fatigue. This seemed to have worsened after the surgery today and he does not feel like he can walk. He does admit that this feels similar to his last hospitalization but "not exactly." Unable to qualify further. He admits to chest pain that started the morning of arrival before his procedure, and he notes that it normally gets worse in the evenings. It starts in the R side of the chest and will radiate across the rest of the chest. Describes it as pressure and uncomfortable. No radiation elsewhere. Has been experiencing some SOB after procedure. He denies current palpitations, cough, abdominal pain, N/V/D/C, or numbness/tingling. Does feel weak and states "I cannot lift my legs because I feel weak." Evaluation reveals CBC with leukocytosis with 28.06, H&H 11.7/34.3; CMP Na 135, BUN 41, ratio 50, glucose 156, protein 5, albumin 2.5; lactate 2.4; Ca 9.4, Mg 2.3; procal 0.46; CXR s/p placement of R IJ [id number]-Hcyd catheter without pneumothorax, emphysema with pulmonary vascular congestion, interval development of ill-defined R midlung opacities may be edema versus pneumonitis, large RONIT mass re-demonstrated. Reevaluated patient at 2220- feeling better, and feels that he is stronger than before when we first met. Not complaining of dizziness or lightheadedness. No chest pain or SOB. Feels that his symptoms are at their baseline, and not worse than before. He is resting comfortable. Neuro exam remains stable. Please see Dr. Hilario's attestation for adjustments/additions to treatment plan. Discharge Exam Discharge Plan Discharge Items Patient Disposition: Discharge Diagnosis: insertion of mediport Other Date/Time: 06/08/25 18:15 Hospital Stay Data Consultations 05/26/25 18:44 Consult Hospitalist Stat 05/31/25 16:24 Consult Pulmonology Routine 05/31/25 18:30 Consult Case Management Ambulatory ONCE 06/03/25 16:46 Consult Palliative Care Routine Procedures Performed Operation Date: 05/26/25 14:40 Actual Procedures p Insertion of Access Port Via Right Internal Jugular(Right) - Amandeep Jauregui DO, FACS Diagnostic Imagining Performed 05/26/25 14:40 FL fluoro (infusaport) to 1 hr Routine 05/27/25 10:14 CT head/brain wo con Routine 06/04/25 11:48 CT Abd and Pelvis [CT abd pelvis IV con only] Urgent Total Time Total Time Spent Total Time Spent (In Minutes): Time spent day of discharge 45 minutes including direct patient care, medication reconciliation, documentation, review of labs and images, and coordination of care. 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
== END 2025-06-08 22:28 | disposition expired | DRG 189 ==
LOC: ASU 13:13 → 3W 13:13 → SUATTDRO 18:57 → 3E 06-08 13:10